=== PATIENT | female | born 1955 | race Caucasian/White ===

== ENCOUNTER 2023-05-18 14:48 | Outpatient (OUT) | payer MEDICARE, SELFPAY ==
--- NOTE | 2023-05-18 14:52 | MM_ITS ---
Patient Name: NATHALIE RICHEY MR#: [id number] : 1955 Exam Date: 05/18/2023 Ordering Doctor: DR Ivelisse Georges M.D. RADIOLOGY REPORT PROCEDURE: MM TOMOSYNTHESIS SCREENING BI COMPARISON: MG MAMM SCREEN 3D [place] CAD, 02/12/2022. MG MAMM LT DIAG FU, 11/29/2020. INDICATIONS: screening Calculator Name NCI Breast Cancer Risk Assessment Tool 5 Year Breast Cancer Risk Not Reported. Lifetime Breast Cancer Risk Not Reported. Personal Breast Cancer No Personal Ovarian Cancer No Treatments None Family Cancers None LOCATION: [facility] BREAST COMPOSITION: Scattered areas fibroglandular density. FINDINGS: DIAGNOSTIC CATEGORY 1--NEGATIVE. NO CHANGE FROM COMPARISON ASSESSMENT. Scattered benign-appearing calcifications are present. RIGHT BREAST: No significant suspicious finding. LEFT BREAST: No significant suspicious finding. RECOMMENDATIONS: ROUTINE MAMMOGRAM AND CLINICAL EVALUATION IN 12 MONTHS. PLEASE NOTE: A NORMAL MAMMOGRAM DOES NOT EXCLUDE THE POSSIBILITY OF BREAST CANCER. A CLINICALLY SUSPICIOUS PALPABLE LUMP SHOULD BE BIOPSIED. Dictated by: Anderson Gibbs MD on 05/19/2023 at 09:29 Approved by: Anderson Gibbs MD on 05/19/2023 at 09:30
== END 2023-05-18 14:49 | disposition home or self-care (01) ==
LOC: MAMMO 14:48
PROVIDERS: PCP Family Medicine; Visit Provider Family Medicine
DX: Z12.31 Encounter for screening mammogram for malignant neoplasm of breast (principal)
CPT/HCPCS: 77063; 77067

== ENCOUNTER 2024-01-27 12:27 | Emergency (ER) | payer MEDICARE, SELFPAY ==
[2024-01-27 12:33] VITALS: BP 150/93; PULSE 79; TEMP 36.7; O2SAT 97; BMI 25.7
--- OUTSIDE RECORDS SUMMARY | 2024-01-27 12:54 | XMS_ITS | CCD ---
Author Organization [facility] Care Team Providers Care News Assistant Name Role Phone DR IVELISSE GEORGES Primary Care Unavailable DESTINI, DR IVELISSE Guzman Admitting Unavailable DESTINI, DR IVELISSE Guzman Attending Unavailable DESTINI, DR IVELISSE Guzman Consulting Unavailable DESTINI, DR IVELISSE Guzman Primary Care Unavailable DESTINI, DR IVELISSE Guzman Admitting Unavailable DESTINI, DR IVELISSE Guzman Attending Unavailable [place], DR KEN Vaughn Consulting Unavailable GEORGES, DR IVELISSE Guzman Consulting Unavailable Ivelisse Georges Allergies Allergy Classification Reported Allergen(s) Allergy Type Date of Onset Reaction(s) Facility (3 sources) patient allergy list reviewed by nurse or physicia Propensity to adverse reactions 9 Comment:Done [facility] Other Medications Current Medications Medication Drug Class(es) Dates Sig (Normalized) Sig (Original) Ibuprofen (1 source) Nonsteroidal Anti-inflammatory Drug Motrin Active PARoxetine (1 source) Serotonin Reuptake Inhibitor Paxil Active sulfamethoxazole 800 mg / trimethoprim 160 mg oral tablet (1 source) Dihydrofolate Reductase Inhibitor Antibacterial, Sulfonamide Antimicrobial take 1 tablet by mouth every twelve hours Bactrim DS 800-160 MG 1 tablet Orally Twice a day for 5 days Active valACYclovir 1000 mg oral tablet (3 sources) Herpesvirus Nucleoside Analog DNA Polymerase Inhibitor, Herpes Simplex Virus Nucleoside Analog DNA Polymerase Inhibitor, Herpes Zoster Virus Nucleoside Analog DNA Polymerase Inhibitor take 1 tablet by mouth every twenty-four hours Valtrex 1 GM 1 tablet Orally Once a day for 30 days Active take 2 tablets by mouth twice da fox Valtrex 1 GM 2 tab Orally bid for 1 days Active Valtrex Active Valcyclovir-1000 mg TID 500 mg (1 source) Start: 07-22-2016 take 2 tablets by mouth three times daily Valcyclovir-1000 mg TID 500 mg 2 tabs orally three times a day for 7 days Jul, Active Problems Active Problems Problem Classification Problem Date Documented Date Episodic/Chronic Disorders of lipid metabolism (3 sources) Hyperlipidemia; Translations: [Hyperlipidemia, unspecified] Chronic Genitourinary symptoms and ill-defined conditions (4 sources) Dysuria; Translations: [Dysuria] Episodic Mood disorders (1 source) Dysthymia; Translations: [Dysthymic disorder] Onset: 06-29-2017 Chronic Other circulatory disease (3 sources) Elevated blood-pressure reading without diagnosis of hypertension; Translations: [Elevated blood-pressure reading, without diagnosis of hypertension] Episodic Other injuries and conditions due to external causes (1 source) History of fall; Translations: [History of falling] Episodic Other nutritional; endocrine; and metabolic disorders (1 source) Body mass index 25-29 - overweight; Translations: [Body mass index (BMI) 25.0-25.9, adult] Episodic Other screening for suspected conditions (not mental disorders or infectious disease) (11 sources) Encounter for screening mammogram for malignant neoplasm of breast; Translations: [Encounter for screening for malignant neoplasm of cervix] Onset: 01-14-2022 Episodic Residual codes; unclassified (2 sources) Postmenopausal state; Translations: [Asymptomatic menopausal state] Onset: 08-15-2018 Episodic Viral infection (1 source) Disease caused by 2019-nCoV; Translations: [COVID-19] Past or Other Problems Problem Classification Problem Date Documented Da te Episodic/Chronic Inflammation; infection of eye (except that caused by tuberculosis or sexually transmitteddisease) (1 source) Acute conjunctivitis; Translations: [Unspecified acute conjunctivitis, bilateral] Onset: 11-07-2018 Episodic Other bone disease and musculoskeletal deformities (1 source) Disorder of bone and articular cartilage; Translations: [Disorder of bone and cartilage, unspecified] Onset: 09-21-2018 Episodic Viral infection (1 source) Herpesviral vesicular dermatitis; 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-29-2017 Episodic Results Test Name Value Interpretation Reference Range Facility Urinalysis - DIPSTICKon 09-0 Appearance (U) clear [facility] Other Bilirubin Ql (U) Negative [facility] Other Color (U) yellow [facility] Other Glucose Ql (U) Negative [facility] Other Hemoglobin Ql (U) large [facility] [employer] Other Ketones Ql (U) Negative [facility] Other Leukocyte esterase Test strip Ql (U) moderate [facility] Other Nitrite Ql (U) Negative [facility] Other pH (U) 5.0 [pH] [facility] Other Protein Ql (U) Negative [facility] Other Specific gravity (U) [Rel density] 1.000 [facility] Other Urobilinogen (U) [Mass/Vol] normal [facility] Other Urinalysis - DIPSTICK [facility] Other MG MAMM SCREEN 3D KWAKU CADon 02-12-2022 MG MAMM SCREEN 3D KWAKU CAD Patient: NATHALIE RICHEY Exam Date: 02/12/2022 : 1955 Gender:F Ordering : DR IVELISSE GEORGES M.D. Admission #: [id number] Family : Order #: [id number] CLICK HERE TO VIEW EXAM RADIOLOGY REPORT PROCEDURE: MAMMOGRAM SCREENING 3D BILATERAL CAD COMPARISON: MG MAMM SCREEN 3D KWAKU CAD, 11/22/2020. MG MAMM LT DIAG FU, 11/29/2020. INDICATIONS: Screening for malignant neoplasm of breast Calculator Name NCI Breast Cancer Risk Assessment Tool 5 Year Breast Cancer Risk Not Reported. Lifetime Breast Cancer Risk Not Reported. Personal Breast Cancer No Personal Ovarian Cancer No Treatments None Family Cancers None LOCATION: [facility] BREAST COMPOSITION: Scattered areas fibroglandular density. FINDINGS: DIAGNOSTIC CATEGORY 1--NEGATIVE. NO CHANGE FROM COMPARISON ASSESSMENT. Scattered benign-appearing calcifications are present. Scattered benign-appearing lymph nodes are present. RIGHT BREAST: No significant suspicious finding. LEFT BREAST: No significant suspicious finding. Decrease in architectural distortion upper outer quadrant RECOMMENDATIONS: ROUTINE MAMMOGRAM AND CLINICAL EVALUATION IN 12 MONTHS. PLEASE NOTE: A NORMAL MAMMOGRAM DOES NOT EXCLUDE THE POSSIBILITY OF BREAST CANCER. A CLINICALLY SUSPICIOUS PALPABLE LUMP SHOULD BE BIOPSIED. Dictated by: Ken Gibbs MD on 02/13/2022 at 07:35 Approved by: Ken Gibbs MD on 02/13/2022 at 07:37 Normal [facility] Pap IG, rfx Aptima HPV, rfx 16/18,45on 01-18-2022 . . Normal [facility] Comment on above: Result Comment: Perf ormed at: WB Performed By: #### P APHR2A #### [facility] [address] [place] [address] Dr. Shaheed Pearce DIAGNOSIS: Comment Normal [facility] Comment on above: Result Comment: NEGA TIVE FOR INTRAEPITHELIAL LESION OR MALIGNANCY. CELLULAR CHANGES ASSOCIATED WITH ATROPHY ARE PRESENT. Performed at: WB Performed By: #### P APHR2A #### [facility] [address] [place] [address] Dr. Shaheed Pearce HPV Aptima Negative Normal Negative [facility] Comment on above: Result Comment: This nucleic acid amplification test detects fourteen high-risk HPV types (16,18,31,33,35,39,45,51,52,56,58,59,66,68) without differentiation. Performed at: =G Performed By: #### P APHR2A #### [facility] [address] [place] [address] Dr. Shaheed Pearce Methodology: Comment Normal [facility] Comment on above: Result Comment: This liquid based ThinPrep(R) pap test was screened with the use of an image guided system. Performed at: WB Performed By: #### P APHR2A #### [facility] [address] [place] [address] Dr. Shaheed Pearce Note: Comment Normal [facility] Comment on above: Result Comment: The Pap smear is a screening test designed to aid in the detection of premalignant and malignant conditions of the uterine cervix. It is not a diagnostic procedure and should not be used as the sole means of detecting cervical cancer. Both false-positive and false-negative reports do occur. . Performed at: WB Performed By: #### P APHR2A #### [facility] [address] [place] [address] Dr. Shaheed Pearce Performed by: Comment Normal [facility] Comment on above: Result Comment: Van Zaldivar, Director Speech (ASCP) Performed at: WB Performed By: #### P APHR2A #### [facility] [address] [place] [address] [id number] [address] Shaheed Pearce Specimen adequacy: Comment Normal [facility] Comment on above: Result Comment: Sati sfactory for evaluation. Endocervical component may not be distinguished in cases of atrophy. Performed at: WB Performed By: #### P APHR2A #### [facility] [address] [place], [place] [address] Dr. Shaheed Pearce Coding Summary.on 02-25-2021 Coding Summary. [id number] G h0bWw+PGhlYWQ+HM4QZJF wP41wgHEazX4SS9iSOU3Q YXKJCELSAZ8ICR7qsFA0D DhzU3LwfqKe KkdsrKXtAP20MLa4KZT2a KizGVslbC7adTDkN2d7If XuMU25sM61IPixNRGoZyI 3LjZpbjsgbWFy N9tpFzQdsOFvKbj+PHRhY mxlIHdpZHRoPScxMDAlJy WetXwvME1tAi0zADYjTKU vbGxhcHNlOiBj p0klIORvIDbbFP3qnKzeC 0WmkOE6GVYoq5c5Ub98nQ I+IJAgFXE9vEesEJuul18 7NsYdo0zkJGU9 cEMoVHvsLEB6Y90pj9F6R ERrWSBsOFV2mOC0lE8ujD ybsnwuT3PklFXzRiP1JII 6gMUvkV1jvIhe ohzeyD6lPib+Q73BZO3IQ EFRLR0RTcx9M7EuRvxtrP I+SV17OIVfHD95cPOsaSO sq5kymDw3HkGj YZUpLZR1vVqsFIoeu9WpH AFyI61rtLLrv3W3VSRynS wvvHEqOhUzkJG5zM7zLEu gsuidt0sceose Bobbt9ocxu09eB98Q59eM PsuHUMhTDF6XGEqTGYimN ferq3deN4zSu8+SNzzj5a fu2xsxOc0EaBo KREvpoOykPaxVGG9x9XoH i97W4VvtAntd6OgFys1sg 20yIVig4Y0yQU7ZPnvPDR xbX6lYIrfYzO9 HVHeCeOgvF33kQEdBVnvR a8wsXyehOqdCV3uCIVyak cdINKzkI8dGZFkxRDniEp hON2uVTSwhfii s698XeZwQEZ6GIIpgYSlM 3MkgX4fXiOpNKRoRRSiG1 RiyTOlOAcvD565XIqxAdI 7UOYlrcCiN0Vs KVXegKueAaX5t8V9Iy9Zp 0GkwavvQBM0JAelUTV6Hz W7LyUuDhI1P9OiZaz6JBU drIlsFY3uY3In NUNlwvijcrzfwGU3ZEJkW FOyzI45yJFoCXkfSw0wj7 X1z861BLTtSNApzU17Ra0 udDogMTBwdCBU pX9lrrikk8cwjfzpFgXxL EDjUHc7MSu7SDJtaKruHg KiTPF7JdA3ALL8kDWydV9 ozHnsxfbsvD3w Oyc+D63hpV5eONY7XZU4b pkzJCWrzlFsRL57ME58J2 RyPjwvdGFibGU+PGRpdiB psJaqLI4zGtSp p5gny8QfQUmsO2WxBOOtQ DjdKpw9ZKJmRRY3tQB7lJ 4uQDPiTWsrs0L0sRV6B3C uduMkzo0vi5cr MMRiNMrxR20wcLJrb2I9D VZkfOE7MPObmEfaWxZgjK 93Oyc+OULqqNneg0FwKtd bn7gzm6pkhYg2 KjBpYGRpldWupPjhHER7k 0XvEb59X04mLXzcYUPuPQ AvKOQeICAquAsehd6ddH4 wIi8+PGNvbCB3 hYC0pA2dHHThUjA9NZcxQ 167FmUdqAXxRzfcp3suq2 fmhPf8JuCuZNFlctLdvNy aGSR5k1RxLv15 P67wXNkhDHZtCAIfWPUmR GAiiMnazk9paI5jXc6+PC 0aw0kytr65gN01xTI+PHR lHQT1uXygTKdp YNXtjS6bUMfoHtO6PQVeB pRxuU25vWMfGKpaBd0cpA xtbQsnCQ3sRPActocgf60 5IlIsh4ubPDDb aTEbDTdhXGW7V79gl7G1R GHcHPQbWXH5rVH8nP0ufY lnbjogbGVmdDsgdmVydGl wZItzYXbyE640 IHRvcDsnPlBhdGllbnQgT aSaNFq2P1TxZyw7DOAgoT tcSM5otESzJHldXg8hmKq liPqtLH3oKEGt iezvh751DtLro8qrHIJfq HLuRKxnDBK8T78mw8Z9JR GbVZZdSXU8gTT0lZ1mrCn nbjogbGVmdDsg vyEotXfvWNleLZrrU968U HRvcDsnPkJpcnRoIERhdG G0IE64VU86uJQqs8K5sWS 7J3ZlXOMbwmhz qwircJR7UMDmNJAwoZ80H l9otIrsVq9hDVIuSQZ4AH UznEBsO6XahE2wWgElLWP uFVJsJ7MetTQp YJdpL653SJfyByX5CQZcl qZxB5JqMYNfoFftDeZ0j7 B1Mw6KJ0D7ST75MZ25fBD ud5Z1lEB3C6Cg QTJdbycdlsaknWV6NKVqE BRjpA60Ay3brMtoKj5xJF NyJPZ5ZYAovACpY2VmnS9 yOiAjMDAwMDAw R0EbsVJbSDryG918COkaF rF5ZZCutvLhX0ZvRKEahY dcFvR8o2M2Py9NOYj8QI6 3CO69mXUih2Y9 qWA9D5RjKBBvpubpgtags ZH0DZHaCOHmqZ20Wf1lsE icQq0gJLTnMRO3UFStgFP aE4YmvE1bIjKz LSNbUNYzE4ZxxEGiSAlxV 234UWmdUeT0KPRrjyUfV4 DzPEQvfNgqHjG9v6T7Cq8 AAEUmCA63DSI4 sXL6ZK62UP99E2JdJafbr GFibGU+PHRhYmxlIHdpZH RoPScxMDAlJyBzdHlsZT0 dIr1lDDQbAFZm tJnyeORoCjNgr6qtUAKmB QmrDL9fnTiqH8IprYI2SX Uog3a5Zx70I14aO2PddHW +VUAsnXL3pKH5 pG5oCiEoYoP4WZuuS959Q fZkcAPnDrcfo3kjd0rlyO e2VxO7PDSpekOrnMqnOVP 3i4YiAc34S41z IHdpZHRoPSIxNSUiIHZhb Ntzla7juV3pBx6+PGNvbC I0gPW6dP1gHpLmYqF7CGq mN071ErGekCSb Kyrbq5qql8yliWb2CjMzB KVxuwWrkDwzJUC8f4BaPj 96Z8HpsMbty4CjRdg4zy9 7hFKtk2D9zHJ1 I8VrXMWfqcsbbKKnxSkuJ K6aTYWjqmzkOQPfeJ1zRA TmY9q6AbRpAiQ2TVhdN3R hybD8RSTqnPYh ZQyqXAP7C38tr2Q6CFLpT JWiCKY3oYE8bK5lcGqvkn ogbGVmdDsgdmVydGljYWw pYOvjS546OPZr yTquNQOzfC3bAUUthZJhz FxrBT6hADCazrtkQg4IE5 yUHQjNASWRCQ6QBAajpJW +JAZuBGD0kQmy NEmkPPWdeO1kGYFwQ9b5C gLdMvF2EHjbL0BjAFKyvy edQo59yO6kAlJuHqT3HZj pG3DxvuG2MLLa zZPbNUkqTUZ6J10uw1N2A XKsCYLdPPQ2hZQ5iX2ppR lnbjogbGVmdDsgdmVydGl tQQghSHqiW671 TNWgoPtyGbT4OlJaKyW2H BY7D1TgGga5TTZrqQrwRD 8rzGZrMStzYb4qlGtgcPf oBF5yBPGgbmmf JMSnyA2nSGJvpRHrdLfqW G9uKWQbvpxtp119OzBtPQ W7XGCetQKrM2EzyF1wFaR rEMJzRIZcY3Ex eLLxOFmxU589UOrjEhE4R FXfxsNbC8ShEDClfQgsEb B4i3B4Ii73QtSPZYAzvhi vdGQ+PHRkIHN0 yJhfCJdePZQjyR8aFXMxC 5x6EvXnZpR6GXrjY9KhYD HwudbuDx05xJ1dOuQcEhZ 9CXcfW3TejiX8 ESMidSYeKWevTFJ0X86ou 5J8DFRmFWShNAC9tTT1rH 1hbGlnbjogbGVmdDsgdmV ydGljYWwtYWxp C979SIHmmWugJmXqcGOcF TwvdGQ+INIfRMX1wYfwJC xqQKLnrA0iNXRqG7x4WuF uMeW4VNaiO5Md XQKciytcWv61aO7sShOnY wY3AWssD3SisjJ3YQZkrZ TaGRflBRL9N25zi6C5WQZ aTDUsIRB0qDR4 yC9znOwhtpqleQAccBkhr cQebIzxSMgwTCoeR968TM UdwKjwXt25bHGadHyvlqS 9S3YcVdtsvIO+ NX61SEVbVD75zRZgoQVav 2cnyGu2MoSvXTDgGSW0uS qhIRnyc3TdPNIaJ82zoMD jw5I6VGJmgZzl eKSxTuHozTC1cG9bAGddt coio8oyjoftGnhlc5ajza 84eB72S12sBKjmGJStZWP zMCUiIHZhbGln tu3eaN3uKb3+ZXAptCN7f PM2fP0oPoBmIcJ7LEnkM7 47WbVzcPNwUlzki8edc1y avUs7YhOlRVEj qaGeqUslDHL9x6XmMd85N 29sIHdpZHRoPSIyMCUiIH QuzXxknd1xsR2oOg7+PC9 yx3ynto28vQ66 dHI+CUVcBDC8kXmqXJkpY BFpfA9lYLdsIjQ2NEQmJp HeaD07zVWcANbsPr5shLx dtXfzIA9dYPYg zpodk178CbEhy3zkRPCwz XAuATkjDOZ3Q16yp3W4YU UbJADuNYR2nUB4xK7tiNg nbjogbGVmdDsg kiUfcMhjIAhnGSsnD824U XTrlUeqTkKkvZOtT3werp MTIP4wDryriRP+PHRkIHN 0eWxlPSdwYWRk yE9sWFScY6u4HyFqEeO2T MvkQ9MaxyJ2HUJujURbLX VunQLHfT1dhctdo9siurf gIzAwMDAwMDt0 MOf7VPOacYlgAmYlPWR2B tE1CSE2pNSrdK2syPcipd fusV2kGwa+RklOOjwvdGQ +YJJmWAR9uDga WXpvAGOkuO0vLJQwX3q4J iSxJjA9XYvpI8YsunG6DB SajMFiGKKllJABdS7kuei ku6cpzmopAqEs RLGgEBm4KZr7KWSuoAxuK wWtQMV5MsU8XCX3pZUsuJ 6qfCxvltyqxA6zRla+TVJ OOjwvdGQ+PHRk GZJ0qYjrFNxcWJDzpK8uA EUqK4y5FtAaFwG7UXwnV5 MttlM2IMBboBZiMFInbZC UbR3qbhfin2lc ntghBlYiXEKkAKe7VVu1U FWhhJaeJoJqGXH6TdW5SX D8qCAtzR0krXmryqiogZ7 wOyc+RSV4WPE0 LB93LT50T0WlVxukbLKrf +PHRhYmxlIHdpZHRoPS pwYZWnRcTomRsxTJ9iNj9 yZGVyLWNvbGxh cHNl (more content not included)... [facility] Coding Summary. [id number] G h0bWw+PGhlYWQ+XL7VCTA lU02mxUTntS2QI6rFUQ2W IOEFIVAPPQ9IJM2yuJG5B CtiQ0AxtzLf RfxvdQZwMH86UJg3PDW9c NwjFWpokW5ddLJvC7s3Ri OmLR65zO98AQpiEMHpNgZ 3LjZpbjsgbWFy Z8ddLaVybYNrOyx+PHRhY mxlIHdpZHRoPScxMDAlJy RhgXjpSP7aFe9vHLLkGQU vbGxhcHNlOiBj q3whEEYjPPqzKJ7nzXmgO 0CchFO9ACDup2y0Uy76bC I+SDOcZPA9wYvqIIkwn61 8ToGnj8ifKFL0 fKOqHXbmZXN6A94nm4J5I ILjXSCsUAA2hSN4nA7zkG vrhobdL0HlhPXkLrP1UIA 5vWOgoB1kwEmm yoinnD0mVue+F78IOU2IF TKSFA5YPbl2L7OzHoyupN I+SE14NGXjTS03wXBqzAP ui0givTy7QbBm PWWxIQI6kMyvEMkze6YtZ HFfQ91mnOCzu2S3LZMmbV xvvDKdPrJzaGR7oX7tJIx eoeumc6aqqivq Puwtu5rntv73cC80G41pN LzvUTXnOSW9RLIaNUOgrU cmbs2dhF5hXb5+GEuon0g sq1lujPv3FpKp YSKflgMyoKljCQZ6b1TnC y66Y9QdqGoew8JpJzy2jb 27vWVan7U3eYI1JLchNWJ nmY1sEJblFlE1 QAOjFyKxxH27bTDqAJtwA l0kfWiaeKlxSI9pDLZlel roABNitM7gJCKryEMdcEe hKN2jYRVdklns o296RpUgCXS7TRNkjYYtM 5WlbE3iJuSeKEAeTDVpL8 YojNAxVEaqP112LFipVlF 5OZTpioCrT6Rp WYUokJrxDkJ0d5Y0Fj4Rp 2ChoybuRBC5BCidHAN9Yl P3PcNdVmU7Z9TlQcd9HHU cfZrwNB5hO4Ej EAVtzomulyphdXO3FZLkM PSmfX00cJTnFVlyFv0xp6 A2i421SIQvVEOcbR16Oh4 udDogMTBwdCBU wG2erwqyr5ftzdhaYgZnO AXtBLo1IAp7WSKbhVcgVq ZaPSH9BgG2QLX2hVKdcX1 uwHubqquhbF6p Oyc+U67nmN2jBZV4JPS8w objRJWeriWgOG92YW19V2 RyPjwvdGFibGU+PGRpdiB ucPagBW7rNbPq b1qth1XnQZoxV1EeSFLvT HaqWod1QTQnZEO9cIR6lL 1wIYAkRTbbz8Y7mBL5N8N pvmNbtt2kv3nh KYDpDWhiQ92cyXFyq5R1Z OXwvYT6FJQnfDsmTpGcuB 93Oyc+HCVilHpyg5KeXld cb2krz9svrDp4 PuAdZSPnvnXhbTpnPQL4j 1BaOo25X64eHGtcOJYqLQ BfBHCrZGHzaRnwyy1gtY8 wIi8+PGNvbCB3 qQY6fR6oWBLiPbO8DCoyR 820MgSiwRJzNwaqh8vpo0 ignNs5SqVoLYFdzcRozFc tZKU1e6HaOz28 S72tQCyrDOUxSHKuPGFgC UOnfLfrpr7scH2eDh9+PC 8qd4aofh97qC68kRR+PHR zXRP0oYtvXVqm ZDXhdW6eYHbgJjA2NVWbK rRaoM88oBOvNLvjOc6tpI vnjUldUR7jPWMowzlmb82 9ArIlu4otLDZu zVKyGYmsDHK4G64us6U3S VPjCRXjDBQ7dXJ7mW7yaN lnbjogbGVmdDsgdmVydGl cEKkzUJbaP451 IHRvcDsnPlBhdGllbnQgT tAuZLz7E4LaNja9QQHabM rqDT3agOFiXEziDa6gxKw noSmoAN9tZYQj kjwrg214NbWkk8bnENDys EXeGFexERY9X70tq5L4PL BlNHXaRAL3sIE3kV7ohAi nbjogbGVmdDsg owUktVmfXJjeGYvrJ232J HRvcDsnPkJpcnRoIERhdG W4LL85LT30fNYlh5O9gJT 3Y1CdOUZndcay gpvnzDU2IGAkYAAoaP92L y7usEufOd9zJDNkSGX0PL WzvNAqE4LjwG5cJlGzNXM kOJJbA9JngVPs UXshC655ZWgrTkU3NVSus tMzL9KpDMUqtMotVgV9d1 D0Fe4TJ2H0LV52DT57uIF em2U1qFH8E4Nq WKVtnpavtxfpkVZ6ZVSpD LBnrZ14In9tfNrvZn4hWK LnQNG8RHBnySShW7UraO8 yOiAjMDAwMDAw W1NjzAAaQErxB031WZwgE xH2YPZxczZyJ5LbUXMjyD uoFtJ9o0S1Ai6SFDw3RK9 2HQ84sFLnu3H8 gTX0O2KgAAIrxxqmvyzec AJ1VLZgHARsoJ80Cw4qeZ vpCq1gQVHmAWD3ZXLsaER kH9GaxF5fPoPf ISAgZKPuG1NyvDZxSRguV 410GSmsLvD7DFPawtEyK7 GqLKTqrOcmFdJ1x3W4Cb6 JEXSpKJ08CXE5 tJY6RR78WZ06T7IaHnsdu GFibGU+PHRhYmxlIHdpZH RoPScxMDAlJyBzdHlsZT0 wPn7bWGVtPHOf dZpcnWYkQgKvu4deHWGbX VhsOT3yzFumF5PfzEU3VL Nko4u8Jj56G36eD5BvuHK +OPEumVQ9uSR3 aE1uZlUnJxS6XRasL158A pOjpRExZozic3onx9nubE g0YlQ3SILrwjSihIwoPXR 5c2BgPe15R77t IHdpZHRoPSIxNSUiIHZhb Rloae6krE7zHb5+PGNvbC V0eRO2fD8oOyUlBuK2DZy aW875BnWkgDKx Hedap7rih3ubxJd9IiNgI AMuehDmnLweFCN7s8OvGf 41M9VvvAnhb7DwKaa5hm3 7jTQvz4T0yAH5 M1WhIJReyelynLDcdQmjX M1hWAPhlxczVRIbaT9lJB CcS4p3GdLsWrX7FIgkQ6R hqvX4CGRovDPd NPesVAE1Y87fg8T7ILVyS ESjZOY8wBG0cB3bqZhead ogbGVmdDsgdmVydGljYWw mZDbaS632VICb nUydHHFbcU2lMQSmiVEvd NzkBI1nVKNfkxgkBs6WQ8 pNFRaSIQBSSR0ZOJzpnBO +DKAuMBO4eKgx IIqqLRPbiA7tASTzA7s8F uEfWhY3YPfgP0PsLVJawz lxFw65sD8oNyEmTbS9AGs eE8CztrK5TDQv qQWwYQpoPCA2V15xp8Z9F FTqGGJfBHR2dQI7vO8nvY lnbjogbGVmdDsgdmVydGl cCExrDNmtQ341 HPXzgMtqWpF3NlYxLfP1X KS7Q2RnZzr1KEFjhMbtTT 9wzPZzYHhuMz1elPhifVl iIB7pJTIxapkn FQJxiY4gFGQnuTCcoVzoF T9gNBXenpips218XhMmOE Z6WKBzbRCkF3HkcP3qRuH mNIOqNAOjI0Ig tAFyBGkyP484MXowSvP4A QJziwKvS1QnEZGmuUpoUz X7a6P7Lc58AQPZAAMnnbo vdGQ+PHRkIHN0 eZicDXjwNTJvpJ9rCLUwC 6o4KkMhJlG9PVfeA4PlCG PjqwboDc89mF4fJlEzFpH 8YKgcC0CzjaU6 BJTuuADjMAtvXXV8M05be 3M1HANxSIBzAQX7nGY9bV 1hbGlnbjogbGVmdDsgdmV ydGljYWwtYWxp N657WZRixUuuEqKolWGyG TwvdGQ+HRUlIVG5oXehLG whRYIdsP9yPJAlS8l5TaO vMnR5FLblC6Ma SSWoehfgAe71xD8dIpXxP vG9VNpeA2SnqqK5FIWnlG LtRRfiBGX9S77wu2L5BJV rNVMhNHG8cNH9 yZ1seFpmjijlxARaxOnxe lNyoJgePFqrUGraY424DA NfjNymYz69gLCutHkrndS 7G4GzAjnbjHQ+ PE37VGWfBG90cSRfrNWdo 6ypsCb4CrLfDEXiBEG5yK jgUVuod2SkVAZiA98xfEB mg1M3VCUpfVas wBPzWiQtyNI4eC6pQZric nyio2ipgyqfFovzv4ipru 62dD96J41bNCbnASBzABO zMCUiIHZhbGln cd1kbP7eRt1+WWSzsJI1p KN5cY6lYsZpQnR5XGnkI9 61EyFgwRPkPhbsl8ppg5h cfEs7RcHaRVNk bpIrnCgiYKR9r9XcZq04Q 29sIHdpZHRoPSIyMCUiIH MvlXodkw1ujU0wOl9+PC9 kj7pmdi34oI52 dHI+KGVfCXQ4cEcxLIxoS AJakS7rWTukTfY8NDJhFy KvmY35vQSgWQxkZm5aoWb ntEniFB4qOFRa hhlob932YkHjv8yzCLIox QBaDYulXVQ2D25dj9O7QB MmWSRlQVS0iUH9vP6kgBd nbjogbGVmdDsg goHviJdvBKiyRGuqL760O QYjjYfeEfSkwMNeO3nfvw KQYX9nUgtzmFE+PHRkIHN 0eWxlPSdwYWRk cP8oGEOjX4p4BoRxQfZ9O NzqQ6IjrkS6RLNbfMUeMV GslFALpY6enoakm7lrqsg gIzAwMDAwMDt0 YGq3NBQwxJmkMpHaZYV4U eC7SBF3cQNbyI9gpJnfbi fojC6tIgl+RklOOjwvdGQ +LNLmNVS9zSlb DXasXLVetC9uHQDdA9i3V nWyAyE3GDtgE0SembA7DD CqpOYhKTIztKYNtS3vhrk gq5uaxoktQkBn AONyZXr2KMg9BLNioWusH jGdNNV6OaW7XLE4zCYtwQ 6emYxpwmyufP2zVwy+TVJ OOjwvdGQ+PHRk USA5rKvaWOddVXRukP4aJ FPfR2w7GaJcCoU3HMsoF3 FravM7YBNpdFOhTKEaiQX DhF6gpxnru6jo nobkZmZkFNBuVSp0RWx5J GSrgWweChHjKQU5QbZ1DJ J8nSNuhP1zkSssvbxgqA0 wOyc+PKY2EOC9 IM23JW08D0IeNgillVWmx +PHRhYmxlIHdpZHRoPS muYPJcLhGwiDloVD5gSu8 yZGVyLWNvbGxh cHNl (more content not included)... Normal [facility] Physician Orderon 02-21-2021 Physician Order [id number] Normal [facility] Auto Diffon 11-25-2020 Basophils/100 WBC (Bld) 0.8 % Normal 0.0-2.0 [facility] Comment on above: Order Comment: Order Added by Discern Expert. Performed By: #### 2 [id number], [id number], [id number], [id number], [id number] #### [facility] [address] [place] [address] Basophils/Leukocy karla Auto (Bld) [Pure # fraction] 0.1 E9/L Normal 0.0-0.2 [facility] Comment on above: Order Comment: Order Added by Discern Expert. Performed By: #### 2 733839, [id number], 5637074, [id number], [id number] #### [facility] [address] [place] [address] Eosinophils/100 WBC (Bld) 1.3 % Normal 0.0-8.0 [facility] Comment on above: Order Comment: Order Added by Discern Expert. Performed By: #### 2 963485, [id number], 2758763, 2871529, [id number] #### [facility] [address] [place] [address] Eosinophils/Leuko cytes Auto (Bld) [Pure # fraction] 0.1 E9/L Normal 0.0-0.5 [facility] Comment on above: Order Comment: Order Added by Discern Expert. Performed By: #### 2 402986, [id number], 7207881, 0802712, 0557385 #### [facility] [address] [place] [address] Lymphocytes/100 WBC (Bld) 42.5 % Normal 14.0-50.0 [facility] Comment on above: Order Comment: Order Added by Discern Expert. Performed By: #### 2 940608, [id number], 8073568, 1807289, 1586582 #### [facility] [address] [place] [address] Lymphocytes/Leuko cytes Auto (Bld) [Pure # fraction] 2.8 E9/L Normal 1.0-4.0 [facility] Comment on above: Order Comment: Order Added by Discern Expert. Performed By: #### 2 231050, [id number], 3809373, 6622610, 8746540 #### [facility] [address] [place] [address] Monocytes/100 WBC (Bld) 5.9 % Normal 4.0-14.0 [facility] Comment on above: Order Comment: Order Added by Discern Expert. Performed By: #### 2 275228, [id number], 7537093, 7884571, [id number] #### [facility] [address] [place] [address] Monocytes/Leukocy karla Auto (Bld) [Pure # fraction] 0.4 E9/L Normal 0.2-1.0 [facility] Comment on above: Order Comment: Order Added by Discern Expert. Performed By: #### 2 503727, [id number], 8905717, 8285744, 0851038 #### [facility] [address] [place] [address] Neutrophils/100 WBC (Bld) 49.5 % Normal 36.0-75.0 [facility] Comment on above: Order Comment: Order Added by Discern Expert. Performed By: #### 2 871131, 84620423, 1847487, 3494071, 2809153 #### [facility] [address] [place] [address] Neutrophils/Leuko cytes Auto (Bld) [Pure # fraction] 3.2 E9/L Normal 2.0-7.5 [facility] Comment on above: Order Comment: Order Added by Discern Expert. Performed By: #### 2 663924, 18495614, 2932964, 8558730, 6037619 #### [facility] [address] [place] [address] CBC w/ Auto Diffon Erythrocyte distribution width (RBC) [Ratio] 14.1 % Normal 10.9-14.2 [facility] Comment on above: Performed By: #### 2 874234, 31816254, 7181062, 3213697, 9440928 #### [facility] [address] [place] [address] Hematocrit (Bld) [Volume fraction] 37.0 % Normal 34.0-46.0 [facility] Comment on above: Performed By: #### 2 673747, 88715697, 9610231, 7360247, 4895469 #### [facility] [address] [place] [address] Hemoglobin (Bld) [Mass/Vol] 12.1 g/dL Normal 12.0-16.0 [facility] Comment on above: Performed By: #### 2 498298, 43904792, 3209422, 9677428, 9571061 #### [facility] [address] [place] [address] 88665 MCH (RBC) [Entitic mass] 27.8 pg Normal 27.0-34.0 [facility] Comment on above: Performed By: #### 2 259972, 33090748, 7739775, 0591408, 6897031 #### [facility] [address] [place] [address] 37625 MCHC (RBC) [Mass/Vol] 32.7 g/dL Normal 31.4-36.0 [facility] Comment on above: Performed By: #### 2 028803, 73266914, 3044484, 7308838, 5207489 #### [facility] [address] [place] [address] 28190 MCV (RBC) [Entitic vol] 84.8 fL Normal 80.0-100.0 [facility] Comment on above: Performed By: #### 2 333404, 67206342, 8812122, 6168591, 5609228 #### [facility] [address] [place] [address] Platelet mean volume (Bld) [Entitic vol] 8.2 fL Normal 6.4-10.8 [facility] Comment on above: Performed By: #### 2 897060, 98095918, 7758335, 3527682, 2078533 #### [facility] [address] [place] [address] Platelets (Bld) [#/Vol] 307.0 E9/L Normal 150.0-500.0 [facility] Comment on above: Performed By: #### 2 046508, 48040764, 8955555, 0954954, 4196905 #### [facility] [facility] [address] [id number] RBC (Bld) [#/Vol] 4.4 E12/L Normal 4.3-5.9 [facility] Comment on above: Performed By: #### 2 024993, [id number], 2021114, 5091612, 1828968 #### [facility] [address] [id number] WBC corrected for nucl RBC Auto (Bld) [#/Vol] 6.5 E9/L Normal 4.0-11.0 [facility] Comment on above: Performed By: #### 2 799511, [id number], 1111447, 9323533, 4125189 #### [facility] [address] [place], [place] [id number] CMPon 11-25-2020 Albumin [Mass/Vol] 4.4 g/dL Normal 3.3-5.0 [facility] Comment on above: Performed By: #### 2 224751, [id number], 7557161, 5382174, 9468531 #### [facility] [address] [place], [place] [id number] Albumin/Globulin (S) [Mass conc ratio] 1.5 Normal 1.1-2.2 [facility] Comment on above: Performed By: #### 2 543124, 78472362, 6246353, 7387428, 3817108 #### [facility] [address] [place], [place] [id number] ALP [Catalytic activity/Vol] 77 Int._Unit/L Normal 21-98 [facility] Comment on above: Performed By: #### 2 104017, 92584700, 3214856, 8478003, 1335038 #### [facility] [address] [place], [place] [address] ALT No additional P-5'-P [Catalytic activity/Vol] 23 Int._Unit/L Normal 6-46 [facility] Comment on above: Performed By: #### 2 300597, 18637302, 8242044, 1303559, 9729908 #### [facility] [address] [place] [address] Anion gap [Moles/Vol] 13 mmol/L Normal 6-16 [facility] Comment on above: Performed By: #### 2 289772, 64873214, 0889657, 6978287, 1965224 #### [facility] [address] [place] [address] AST [Catalytic activity/Vol] 26 Int._Unit/L Normal 5-43 [facility] Comment on above: Performed By: #### 2 465141, 31316699, 6904757, 6141314, 9284849 #### [facility] [address] [place] [address] Bilirubin [Mass/Vol] 0.4 mg/dL Normal 0.0-1.1 [facility] Comment on above: Performed By: #### 2 917380, 70142497, 0340114, 5314225, 6668334 #### [facility] [address] [place] [address] Calcium [Mass/Vol] 9.2 mg/dL Normal 8.9-11.1 [facility] Comment on above: Performed By: #### 2 513830, 14207364, 8611086, 9451252, 8260956 #### [facility] [address] [place] [address] Chloride [Moles/Vol] 103 mmol/L Normal 101-111 [facility] Comment on above: Performed By: #### 2 969280, 84187251, 4409167, 7017747, 6474434 #### [facility] [address] [place] [address] CO2 [Moles/Vol] 24 mmol/L Normal 21-31 [facility] Comment on above: Performed By: #### 2 184713, 45955682, 6536927, 8288437, 9457678 #### [facility] [address] [place] [address] Creatinine [Mass/Vol] 0.9 mg/dL Normal 0.5-1.3 [facility] Comment on above: Performed By: #### 2 550417, 80063613, 3442714, 4284642, 1898606 #### [facility] [address] [place] [address] Globulin (S) [Mass/Vol] 3.0 g/dL Normal 1.4-4.0 [facility] Comment on above: Performed By: #### 2 743865, 23155699, 0730795, 0367685, 5514068 #### [facility] [address] [place] [address] Glucose [Mass/Vol] 101 mg/dL Normal 55-199 [facility] Comment on above: Result Comment: If t his glucose result represents a fasting glucose, interpretation should refer to the following reference range: 55-99 mg/dL Performed By: #### 2 228518, 74311806, 7456028, 7986352, 4736970 #### [facility] [address] [place] [address] Potassium [Moles/Vol] 3.8 mmol/L Normal 3.5-5.3 [facility] Comment on above: Performed By: #### 2 156777, 51910816, 8159973, 8609294, 0762830 #### [facility] [address] [place] [address] Protein [Mass/Vol] 7.4 g/dL Normal 6.0-7.8 [facility] Comment on above: Performed By: #### 2 613323, 80085043, 4992918, 4337412, 6538542 #### [facility] [address] [place] [address] Sodium [Moles/Vol] 136 mmol/L Normal 135-145 [facility] Comment on above: Performed By: #### 2 441925, 10199545, 8754964, 0893532, 2136963 #### [facility] [address] [place] [address] Urea nitrogen [Mass/Vol] 18 mg/dL Normal 5-21 [facility] Comment on above: Performed By: #### 2 012719, 03912305, 4854730, 2451219, 2982155 #### [facility] [address] [place] [address] Urea nitrogen/Creatini ne [Mass ratio] 20 No Units Normal 10-20 [facility] Comment on above: Performed By: #### 2 355203, 60840261, 4921748, 9475176, 4802720 #### [facility] [address] [place] [address] Consent for Treatmenton 10-30 Consent for Treatment [id number]#1 .00CD:127 Normal [facility] Lipid Panelon 11-25-2020 Cholesterol [Mass/Vol] 282 mg/dL High 120-200 [facility] Comment on above: Performed By: #### 2 392136, 02728931, 2023281, 7477534, 6832262 #### [facility] [address] [place] [address] Cholesterol in HDL [Mass/Vol] 111 mg/dL Invalid Interpretation Code [facility] Comment on above: Result Comment: HDL > or equal to 60 mg/dL: Low cardiovascular risk HDL < 40 mg/dL : High cardiovascular risk Performed By: #### 2 563160, 62122963, 8797725, 5283820, 9799286 #### [facility] [address] [place] [address] Cholesterol in LDL [Mass/Vol] 120 mg/dL Normal <=129 [facility] Comment on above: Performed By: #### 2 092501, 70388791, 5674700, 1681590, 9358831 #### [facility] [address] [place] [address] Cholesterol in VLDL [Mass/Vol] 21 mg/dL Normal 7-40 [facility] Comment on above: Performed By: #### 2 986734, 78280362, 1897395, 3454831, 0663252 #### [facility] [address] [place] [address] Triglyceride [Mass/Vol] 107 mg/dL Normal <=149 [facility] Comment on above: Performed By: #### 2 010540, 59290083, 8593229, 0576350, 0651116 #### [facility] [address] [place] [address] Physician Orderon 11-25-2020 Physician Order [id number] 1.00CD:127 Normal [facility] eGFRon 11-25-2020 GFR/1.73 sq M.predicted among blacks MDRD (S/P/Bld) [Vol rate/Area] mL/min/{1.73_m2} Normal >=59 [facility] Comment on above: Order Comment: Order added by Discern Expert. Result Comment: eGFR is race adjusted. AA=. Performed By: #### 2 723516, 54098292, 2089866, 4112150, 3616468 #### [facility] [address] [place] [address] GFR/1.73 sq M.predicted among non-blacks MDRD (S/P/Bld) [Vol rate/Area] mL/min/{1.73_m2} Normal >=59 [facility] Comment on above: Order Comment: Order added by Discern Expert. Result Comment: Crew Scheduler cathryn kidney disease could be indicated at eGFR's of less than 60 mL/min/1.73m2. Kidney failure is indicated at less than 15 mL/min/1.73m2. Performed By: #### 2 011356, 60374821, 5794193, 0195489, 7316632 #### [facility] [address] [place] [address] Encounters Encounter Date Encounter Type Care Provider Facility Start: 07-05-2023 End: 07-05-2023 ambulatory Ivelisse Georges Other [facility] Other Start: 07-05-2023 Telephone encounter Ivelisse Georges [facility] Start: 05-11-2023 End: 05-11-2023 ambulatory Ivelisse Georges Other [facility] Other Start: 05-11-2023 Telephone encounter Ivelisse Georges [facility] Start: 01-29-2023 End: 01-29-2023 ambulatory Ivelisse Georges Other [facility] Other Start: 01-29-2023 Nursing evaluation o f patient and report Ivelisse Georges [facility] Start: 02-12-2022 End: 02-13-[address] IVELISSE GEORGES Facility:[facility] Start: 01-14-2022 Adult health examination Ivelisse Georges Other [facility] Other Start: 01-14-2022 End: 01-14-[address] IVELISSE GEORGES Facility:[facility] Procedures Date Procedure Procedure Detail Performing Clinician Start: 09-21-2018 Screening for osteoporosis Ivelisse Georges Other Start: 08-15-2018 Screening for malign ant neoplasm of colon Ivelisse Georges Other Start: 06-29-2017 General examination of patient Ivelisse Georges Other Start: 06-29-2017 Screening mammography Ketan Georges Other Screening for malign ant neoplasm of breast Ivelisse Destini Other Immunizations Immunization Date Immunization Notes Care Provider Fa cili 04-21-2023 influenza, high dose seasonal, preservative-free Ivelisse Georges Other [facility] Other 06-11-2020 zoster vaccine, live Ivelisse Georges Other [facility] Other 02-16-2020 zoster vaccine, live Ivelisse Georges Other [facility] Other 08-03-2019 influenza virus vaccine, split virus (incl. purified surface antigen) Ivelisse Destini Other [facility] Other Payers Date Payer Category Payer Medicare [id number] 1960 Medicare [id number] 1955 Unknown [id number] [id number] 1955 Unknown [id number] [id number] [id number] Social History Date Type Detail Facility Sex Assigned At [facility] Other Evaluation note 01-29-2023 Note Date & Type Note Facility 01-29-2023 Evaluation note Encounter Date Diagnosis Assessment Notes Jan, Dysuria (ICD-10 - R30.0) [facility] Other Evaluation note Note Date & Type Note Facility Evaluation note No Information [facility] Other History general Narrative - Reported Note Date & Type Note Facility History general Narrative - Reported Type Medical History Problem Title : comp liance with medical treatment, Problem Description : compliance with medical treatment, Problem Comment : Done, Problem Status : Active,, Medical History Problem Title : Depr ession Screening, Problem Description : Depression Screening, Problem Comment : Negative, Problem Status : Active,, Medical History Problem Title : no k nown problems, Problem Description : no known problems, Problem Comment : F, Problem Status : Active,, Medical History Problem Title : past medical history E&M, Problem Description : past medical history E&M, Problem Comment : Depression Zostavax 2006 Cold sores Prevnar 06/26/15 Shingles 07/2016, Problem Status : Active,, Medical History Problem Title : past medical history reviewed, Problem Description : past medical history reviewed, Problem Comment : reviewed - no changes required, Problem Status : Active,, Medical History Problem Title : PHQ2 Questionairre Score, Problem Description : PHQ2 Questionairre Score, Problem Comment : 0, Problem Status : Active,, Medical History Problem Title : PHQ9 Question One score, Problem Description : PHQ9 Question One score, Problem Comment : 0, Problem Status : Active,, Medical History Problem Title : PHQ9 Question Two score, Problem Description : PHQ9 Question Two score, Problem Comment : 0, Problem Status : Active,, Surgical History Problem Title : past surgical history reviewed, Problem Description : past surgical history reviewed, Problem Comment : reviewed - no changes required, Problem Status : Active, Surgical History Problem Title : surg ical procedures, hx of, Problem Description : surgical procedures, hx of, Problem Comment : x 3 Appendectomy Colonoscopy 2005 - normal L cataract 08/2018, Problem Status : Active, Surgical History Problem Title : surg ical procedures, hx of, Problem Description : surgical procedures, hx of, Problem Comment : x 3 Appendectomy Colonoscopy 2005 - normal, Problem Status : Active, Hospitalization History See Above [facility] Other History general Narrative - Reported Note Date & Type Note Facility History general Narrative - Reported Type Medical History Hyperlipemia Medical History Transient elevated blood pressur e Medical History Abnormal mammogram of left breas t Surgical History bunionectomy Surgical History C section Hospitalization History See Above [facility] Other Summary Purpose Family History No Family History Records FoundNo Family History Records Found Advance Directives No Advanced Directives Records FoundNo Advanced Directives Records Found Additional Source Comments INFORMATION SOURCE (unrecogn ized section and content) DATE CREATED AUTHOR 03/12/2021 [facility] DATE CREATED AUTHOR AUTHOR'S ORGANIZ ATION 02/27/2022 [facility] REASON FOR VISIT (unrecogniz ed section and content) UA-Burning, Frequency, PainR efillRefill FOR RECORDS PERTAINING TO PATIENTS WHO ARE OR HAVE BEEN ENROLLED IN A CHEMICAL DEPENDENCY/SUBSTANCEABUSE PROGRAM, SOME INFORMATION MAY BE OMITTED. This clinical summary was aggregated from multiple sources. Caution should be exercised in using it in the provision of clinical care. This summary normalizes information from multiple sources, and as a consequence, information in this document may materially change the coding, format and clinical context of patient data. In addition, data may be omitted in some cases. CLINICAL DECISIONS SHOULD BE BASED ON THE PRIMARY CLINICAL RECORDS. [facility] provides no warranty or guarantee of the accuracy or completeness of information in this document.
--- NOTE | 2024-01-27 13:09 | ED_ITS ---
HPI HPI - General Adult General Chief complaint: Skin/Abscess/Foreign Body Stated complaint: DOG BITE Time Seen by Provider: 01/27/24 12:53 Source: patient and family Mode of arrival: walk-in Limitations: no limitations History of Present Illness HPI narrative: Patient is coming to the ER after she had a dog bite to the left side of the face almost within the last hour, this was a friend dog and the dog just bit her in the face there was no other injury. The patient is not up-to-date with her tetanus booster last tetanus booster was more than 5 years ago No other injury Related Data Previous Rx's ?Medication ?Instructions ?Recorded amoxicillin 875 mg-potassium 1 tab PO Q12H #14 tabs 01/27/24 clavulanate 125 mg tablet bacitracin 500 unit/gram topical 1 applic topical DAILY #14 grams 01/27/24 ointment Allergies Allergy/AdvReac Type Severity Reaction Status Date / Time No Known Drug Allergies Allergy Verified 01/27/24 12:33 Opioid HPI Opioid Management Most Recent Opioid Data: No Data to Display Review of Systems ROS Status of ROS 10 or more systems reviewed and unremark able except as noted in history and below Exam Narrative Exam Narrative: Nurses notes and vital signs reviewed and patient is not hypoxic. General: Well-appearing and in no apparent distress. Skin: Warm, dry, no pallor noted. No rash. Head: Normocephalic, the patient have a marking of almost 4-5 teeth to the left side of the face mostly the cheek only , no involvement of the eye or the eyelid and there is no other injury, no exposure of the underlying structures Neck: Supple, non-tender. Eye: Pupils are equal, round and EOMI. No scleral icterus. Ears, Nose, Mouth, and Throat: TM are clear, no nasal mucosal hypertrophy. Oral mucosa is moist, no posterior oropharynx erythema, uvula is mid-line Cardiovascular: Regular Rate and Rhythm without murmur, gallop or rub. Respiratory: No accessory muscle use or respiratory distress. Lungs are clear to auscultation, no wheezing, rales or rhonchi Chest Wall: no tenderness Back: No midline thoracic or lumbar vertebral tenderness. No CVA tenderness Musculoskeletal: normal ROM, no calf or popliteal tenderness, no lower extremity edema/swelling GI: Abdomen is soft, non-distended. Normal bowel sounds. No masses appreciated. No tenderness to palpation. No rebound, guarding, or rigidity noted. Neurological: A&O x4. No cranial nerve dysfunction observed. No truncal ataxia. Moves all extremities. Sensation intact. Psychiatric: Cooperative and interactive. Normal mood and affect. Constitutional Vital Signs, click to edit/add: Last Vital Signs Temp 98.1 F 01/27/24 12:33 Pulse 79 01/27/24 12:33 Resp 18 01/27/24 12:33 BP 150/93 H 01/27/24 12:33 Pulse Ox 97 01/27/24 12:33 O2 Del Method Room Air 01/27/24 12:33 Course Vital Signs Vital signs: Vital Signs Temperature 98.1 F 01/27/24 12:33 Pulse Rate 79 01/27/24 12:33 Respiratory Rate 18 01/27/24 12:33 Blood Pressure 150/93 H 01/27/24 12:33 Pulse Oximetry 97 01/27/24 12:33 Oxygen Delivery Method Room Air 01/27/24 12:33 Temperature 98.1 F 01/27/24 12:33 Pulse Rate 79 01/27/24 12:33 Respiratory Rate 18 01/27/24 12:33 Blood Pressure 150/93 H 01/27/24 12:33 Pulse Oximetry 97 01/27/24 12:33 Oxygen Delivery Method Room Air 01/27/24 12:33 Medical Decision Making [facility] Narrative Medical decision making narrative: Right now the patient is coming with a dog bite to the face the dog is a friend dog and is vaccinated The patient will be provided with a tetanus booster in addition to local care with bacitracin and Augmentin started on prophylaxis The patient was instructed about the importance of monitoring her symptoms she is to come back to the ER in case of any symptom concern including fever or increasing redness Discharge Plan Discharge Stand Alone Forms: Work/School Release, Portal Instructions Chief Complaint: Skin/Abscess/Foreign Body Clinical Impression: Dog bite Qualifiers: Encounter type: initial encounter Qualified Code(s): W54.0XXA - Bitten by dog, initial encounter Patient Disposition: Home, Self-Care Time of Disposition Decision: 13:11 Condition: Good Prescriptions / Home Meds: New amoxicillin-pot clavulanate 875-125 mg tablet 1 tab PO Q12H Qty: 14 0RF bacitracin 500 unit/gram ointment 1 applic topical DAILY Qty: 14 0RF Print Language: Upper Sorbian Instructions: Animal Bite (ED) Referrals: Ivelisse Georges MD [Primary Care Provider] - 1 week
[2024-01-27] MEDS: ADACEL DIPH,PERTUSS(ACELL),TET VAC/PF 0.5 ML ADULT SYRINGE IM (13:25)
[2024-01-27] MEDS: BACITRACIN 0.9 GM PACKET 1 PACKET TOPICAL (13:25)
== END 2024-01-27 13:32 | disposition home or self-care (01) ==
PROVIDERS: Emergency Provider Emergency Medicine; PCP Family Medicine
DX: S00.87XA Other superficial bite of other part of head, initial encounter (principal); W54.0XXA Bitten by dog, initial encounter; Z23 Encounter for immunization
CPT/HCPCS: 90471; 90715; 99284

== ENCOUNTER 2024-07-26 13:01 | Outpatient (OUT) | payer MEDICARE, SELFPAY ==
--- NOTE | 2024-07-26 13:05 | MM_ITS ---
Patient Name: NATHALIE RICHEY MR#: [id number] : 1955 Exam Date: 07/26/2024 Ordering Doctor: DR Ivelisse Georges M.D. RADIOLOGY REPORT PROCEDURE: MM TOMOSYNTHESIS SCREENING BI COMPARISON: MM TOMOSYNTHESIS SCREENING BI, 05/18/2023. MG MAMM SCREEN 3D [place] CAD, 02/12/2022. MG MAMM LT DIAG FU, 11/29/2020. MG MAMM SCREEN 3D [place] CAD, 06/07/2013. INDICATIONS: Screening for malignant neoplasm Calculator Name NCI Breast Cancer Risk Assessment Tool 5 Year Breast Cancer Risk Not Reported. Lifetime Breast Cancer Risk Not Reported. Personal Breast Cancer No Personal Ovarian Cancer No Treatments None Family Cancers None LOCATION: [facility] BREAST COMPOSITION: There are scattered areas of fibroglandular density. FINDINGS: RIGHT BREAST: No significant suspicious finding. Benign-appearing with noted along the chest wall . Benign-appearing calcifications are present. LEFT BREAST: No significant suspicious finding. Benign-appearing with noted along the chest wall . Benign-appearing calcifications are present. DIAGNOSTIC CATEGORY 2--BENIGN FINDING. NO CHANGE FROM COMPARISON. RECOMMENDATIONS: ROUTINE MAMMOGRAM AND CLINICAL EVALUATION IN 12 MONTHS. PLEASE NOTE: A NORMAL MAMMOGRAM DOES NOT EXCLUDE THE POSSIBILITY OF BREAST CANCER. A CLINICALLY SUSPICIOUS PALPABLE LUMP SHOULD BE BIOPSIED. Dictated by: Junaid Royal MD on 07/26/2024 at 15:56 Approved by: Junaid Royal MD on 07/26/2024 at 15:57
--- OUTSIDE RECORDS SUMMARY | 2024-07-26 13:07 | XMS_ITS | CCD ---
Author Organization [facility] Care Team Providers Care Precipitator Operator Name Role Phone DR IVELISSE GEORGES Primary Care Unavailable KARISHMA, DR IVELISSE Guzman Admitting Unavailable KARISHMA, DR IVELISSE Guzman Attending Unavailable KARISHMA, DR IVELISSE Guzman Consulting Unavailable KARISHMA, DR IVELISSE Guzman Primary Care Unavailable KARISHMA, DR IVELISSE Guzman Admitting Unavailable KARISHMA, DR IVELISSE Guzman Attending Unavailable FAIRTON, DR KEN Vaughn Consulting Unavailable KARISHMA, DR IVELISSE Guzman Consulting Unavailable Ivelisse Georges Unavailable Ivelisse Georges MD Primary Care Provider CHIDI WILKS Attending Unavailable Allergies Allergy Classification Reported Allergen(s) Allergy Type Date of Onset Reaction(s) Facility (3 sources) patient allergy list reviewed by nurse or physicia Propensity to adverse reactions 9 Comment:Done [employer] Other Medications Current Medications Medication Drug Class(es) Dates Sig (Normalized) Sig (Original) Vbwguqw-Atjudifjhu-Vrem min D (CALCIUM GUMMIES PO) (2 sources) Calcium-Phosphor u s-Vitamin D (CALCIUM GUMMIES PO) Take by mouth Active Ibuprofen (1 source) Nonsteroidal Anti-inflammatory Drug Motrin [...] Translations: [Dysthymic disorder] Onset: 06-29-2017 Chronic Other acquired deformities (2 sources) Equinus contracture of the ankle; Translations: [Contracture, right ankle] 04-24-2024 Chronic Other acquired deformities (2 sources) Equinus contracture of the ankle; Translations: [Contracture, left ankle] 04-24-2024 Chronic Other circulatory disease (3 sources) Elevated blood-pressure reading without diagnosis of hypertension; Translations: [Elevated blood-pressure reading, without diagnosis of hypertension] Episodic Other connective tissue disease (2 sources) Plantar fasciitis; Translations: [Plantar fascial fibromatosis] 04-24-2024 Episodic Other injuries and conditions due to [...] Urinalysis - DIPSTICKon 09-0 Appearance (U) clear [employer] Other Bilirubin Ql (U) Negative [employer] Other Color (U) yellow [employer] Other Glucose Ql (U) Negative [employer] Other Hemoglobin Ql (U) large [employer] Other Ketones Ql (U) Negative [employer] Other Leukocyte esterase Test strip Ql (U) moderate [employer] Other Nitrite Ql (U) Negative [employer] Other pH (U) 5.0 [pH] [employer] Other Protein Ql (U) Negative [employer] Other Specific gravity (U) [Rel density] 1.000 [employer] Other Urobilinogen (U) [Mass/Vol] normal [employer] Other Urinalysis - DIPSTICK [employer] Other MG MAMM SCREEN 3D KWAKU CADon 02-12-2022 MG MAMM SCREEN 3D KWAKU CAD Patient: NATHALIE ZIMMER Exam Date: 02/12/2022 : 1955 Gender:F Ordering : DR IVELISSE GEORGES M.D. Admission #: [id number] Family : Order #: [id number] CLICK HERE TO VIEW EXAM RADIOLOGY REPORT [...] No Treatments None Family Cancers None LOCATION: [facility] BREAST COMPOSITION: Scattered areas fibroglandular density. FINDINGS: [...] Gibbs MD on 02/13/2022 at 07:[address] [facility] Pap IG, rfx Aptima HPV, rfx 16/18,45on 01-18-[address] [facility] Comment on above: Result Comment: Perf ormed at: WB Performed By: #### P APHR2A #### [facility] [address] [address] [address] Shaheed Pearce DIAGNOSIS: Comment Normal [facility] Comment on above: Result Comment: NEGA TIVE FOR INTRAEPITHELIAL LESION OR MALIGNANCY. CELLULAR CHANGES ASSOCIATED WITH ATROPHY ARE PRESENT. Performed at: WB Performed By: #### P APHR2A #### [facility] [address] [address] [address] Shaheed Pearce HPV Aptima Negative Normal Negative [facility] Comment on above: Result Comment: This nucleic acid amplification test detects fourteen high-risk HPV types (16,18,31,33,35,39,45,51,52,56,58,59,66,68) without differentiation. Performed at: =G Performed By: #### P APHR2A #### [facility] [address] [place] [address] Dr. Shaheed Pearce Methodology: Comment Normal [facility] Comment on above: Result Comment: This liquid based ThinPrep(R) pap test was screened with the use of an image guided system. Performed at: WB Performed By: #### P APHR2A #### [facility] [address] [address] [address] Shaheed Pearce Note: Comment Normal [facility] Comment on above: Result Comment: The Pap smear is a screening test designed to aid in the detection of premalignant and malignant conditions of the uterine cervix. It is not a diagnostic procedure and should not be used as the sole means of detecting cervical cancer. Both false-positive and false-negative reports do occur. . Performed at: WB Performed By: #### P APHR2A #### [facility] [address] [address] [address] Shaheed Pearce Performed by: Comment Normal [facility] Comment on above: Result Comment: Van Zaldivar, Molding Supervisor (ASCP) Performed at: WB Performed By: #### P APHR2A #### [facility] [address] [place] [address] Dr. Shaheed Pearce Specimen adequacy: Comment Normal [facility] Comment on above: Result Comment: Sati sfactory for evaluation. Endocervical component may not be distinguished in cases of atrophy. Performed at: WB Performed By: #### P APHR2A #### [facility] [address] [place] [address] Dr. Shaheed Pearce Coding Summary.on 02-25-2021 Coding Summary. CD:[id number] G h0bWw+PGhlYWQ+TE2DIZM xV85miPNpoG0ZU3tGNU8I YVHDZARTUP5ZXX9uaQE0E QoaH4YtaiEd ZxyonBIhSJ39FYm3UQJ0k FieMVazlX6wdPEbA2w7Kk EjSG73bR19RXmtJSMhRqO 3LjZpbjsgbWFy G4wlNkMovRTsTkn+PHRhY mxlIHdpZHRoPScxMDAlJy XtbPdmOY8jFv1qWNWoOII vbGxhcHNlOiBj g1zvFPYjEQwsGN2ixKivX 6AymYQ7NNSxh5o8Io58zJ I+JTDiHSD8qAhsQVfam35 9UuJac2gvGPT5 gHUkMWcaRBC1G26nu4J5I KReJGXeMES0wUS3sS6fiU mjnkzzP8TouXQrNrH8OEI 7vCDeiH6gxBno ogpmsP8gUyh+E22UXR6QT EDCWJ5QEwc8L4IaTlwhuQ I+NE86UZLdLD40dZFdcKT fa2gcoUw2WeUw VGToMPL4bEeeMJzyc7JfJ YQcK77uaATrg2Z8EWUlsT yqtBYzRuLywRY3rG7rBEu phbdce3paklru Tatvu2hbet17jL92A67vA DlzAGFqQIX3VLJdTDUcrN xzrp6evJ6tFg9+IYpfm9m sg9dkfDk2LvRy NMQfxuAcdGmsUNL2b2HeU e47G9KzaCqnl5AgArd7bg 04wKEgc8R7pLN3UHsfTOF amP9zJRhmXbG6 VTSjQsKugC92yXNyFBnqH u8juImihYalBE6mKCLvde fvBPAowO4mIZTbfXSzeVd uVZ8rWPKkcdqn n554VeWiXHC4IRLmsUSqH 2KqeX6uHnNaQTZfAOHcB5 EwcNNdKIamH026QWacEuY 5WQXrnrAiW2Xp JMLnoSykKkH9s6S7Kw1Gx 7WtksdqPHH9ITzkFFX0He C9VzZaJlS8B8TdZvc5QIH gzPjoTV7nH2Bz HGHfqyiohpriuQI4NNUmA YXzsO87yLVmDUadRb4hr9 D1b439XXGrHKBvjT37Nb9 udDogMTBwdCBU lC5yagady6rxmzspZpZrI GEyMAt6GUj8UGAffUjmGu XhRZJ3XtQ9PUJ6rUDgwI5 wwFxjjqlnbX3g Oyc+M54yvM0kETX9BRL9z zmyETSdznBtRU56HK93G9 RyPjwvdGFibGU+PGRpdiB hsRhtBH7tRoUp v6zvj2QlZIziM2VrFVBgL CvnVnh6OMFsWST2sWC2uZ 5iKIAvVRejk5V3pKR6P6T eisZfhn8mx0mr DVIuWRzdS22wfVKjt8Z9Z VSfvAB8BWSpaTnjXiQofJ 93Oyc+CVJqqUwto6SmViu ke6ppg7xcaKp5 AyGmDKFgklBvyNmoOWV0n 7NoSa51U04bPNcqCIOuJK CkANUrKUMwhSdvyn5zyI9 wIi8+PGNvbCB3 vRW4lS7zUSKqHzT6ZFkhT 136FnSssBHqCedlr0hyy2 qncNj0AxGxMKJsngTbpLa xKEZ3s6EySg69 E59hIZjtKQYiDQKrTKFkX ORffQozld4moC6wHf8+PC 9hl5hcqa42cD71nVK+PHR xLEE1aVfxVTzl HWQsvJ7zOIebVaZ3ORHuQ oWddR89pCSnUQkrOw5xyM gzcKjtXJ0uNFEwtcmhp85 9CmZvg2koFHUm dFMwNLskPOE9R50jt2T5K HYgNHEnSLY9vHK5zA9ozT lnbjogbGVmdDsgdmVydGl nMTzyKFzqG494 IHRvcDsnPlBhdGllbnQgT fKsBRg5J4TqOhb3ZVMihL ztCS7pnCWbSSdrFn9xhHa trBlgCS6uMSMj acokn589MlIvw8gyLXVzu DDsFNrkMGC1I24mf8C4YO BlVXWsBXC5lSV6kW3eeDk nbjogbGVmdDsg vfSfiBllWIauZAiqH235E HRvcDsnPkJpcnRoIERhdG T7HN09TP80wTMrr7R1yCU 8P4BpAOFnqorl lgdmnNY8RGIhJHGfcG05I c6hlQebEr6bIIKnZUL9IE KosHXlS2IcmH9nWfJuVQY rRNVcQ0KskDYf UMsqQ132DLtvPlP8GIPer jEjO9IiSQRlnLqzQmJ1u3 Z7Yl5CD3B9TE82NB98hPM ej7B6uPB5K6Ru SQVjlbmyfqdzhRP8DYFjX LNfdL65Zx0ykMpyXe0uPR LoHBV0SGAttNIpK5SctQ6 yOiAjMDAwMDAw P8NruDVxBDfvW964ZNtbY nF1JZRwleKfG7NuXNKmsW kwXtA8b9S4Qp5UDWv7LQ6 9EE99wMSlr7M2 mCS6C6VmQAKtmoegpayta LS4RSKxPPEcdN27Fk2ebV jkXq2xBXMyHYX3XXKugEY zG9NlqJ7gPzEh PPRvLPVtB4OesARzILnaI 232EFcpWnZ6TBGihsSkC8 SwVFNrgPbzIcM5y3J7Er3 XIVSpSZ14PKQ2 iLD7QC59MT78O9HqBeaug GFibGU+PHRhYmxlIHdpZH RoPScxMDAlJyBzdHlsZT0 zPq0hODOfKAUw nNrtpGVhFkSjl1czBWWpQ VdoQK1qfAfkL3ZwbQD3VH Vky8g4Hj16G74wY7ZxmZZ +NFQodXO0lJN7 eZ5dGjTjDrZ6IRmyC542U uGffIVzRiwxn7slb7serS l4CxN2RISemnAqsCtrHIA 2a8GgFj00H15m IHdpZHRoPSIxNSUiIHZhb Lnows4jfY2fKc6+PGNvbC A6iON8uM2vOsXqNqI7JFo mK932YwKmhGJk Ihvrt0aal0znfGj0BaVcZ BYnksFwlYmgPRZ6v2OzXm 12H8OovAalt6LrGxd3vx0 1aVHpp1Q3oIU7 L0OtSXEbyxqhkLBrxUyyM A2eAWOcptmdUMHnrH6gIP NjB0w7FlCgZeL7CQeaR0N oszX8DBRxlQKf BAxoKGD1R05nn7K4LRXgZ TVyGNW8lGR5fI8acFrdwb ogbGVmdDsgdmVydGljYWw pPTjbC614ZZYv xIwtGUNzxB4cKLZumVVzk WjzWM2dHYKphvwqUu6RW4 nVZJpZEMXUSO2OMIychKL +HLClGKP3dCci RHegDXNdnL7qCJLvQ6b1M mDyTcE4NLpiO7EvBCBzpq qvVq80fG8jPuXcTqS4MPa vY2SsbqZ1XLOl lDFiRJgvXRI1D43dd2G8E EAeTMHiIYI2gKX0fH0fwF lnbjogbGVmdDsgdmVydGl fNOecNAqeQ859 LHSilSgvMeU8VcFyVzW6L FL0K6GgKiv8PPSlwMqnEY 7fzJTkZIiqTw7dyBddaDw gEV5aGYAqzlnf QMNqbM9aWIZbjPIswEftU N9iSWIwiqiyd840PoXyUQ S5OBZgnPCyZ0OquP7wZmN lHGXoGHHdM5Am fLOeHXfcQ304SCywHfY3W WOdjpFoS6WlIINslNciWs T1p3I0Za75UjHJFTDuiha vdGQ+PHRkIHN0 oArzFLpqUGQkpJ9gDIIyV 6d3OtCyAoF5JAogD2QwFO EzvohvWe36xN0lZtMzJbE 2RLdtR6VoipE3 EZMmjMPeSJpjISX0Y32rq 7J7SWEuFLSsJPZ9tCV7hF 1hbGlnbjogbGVmdDsgdmV ydGljYWwtYWxp J548ZNOteRzyRdVuoARuW TwvdGQ+DPMlIQZ0vHwoZB jcJYYsjN8dQKLyH2j5SsI oRpK0EAkjG0Nd WJTpsggfFn19gK4uZgQfS cM4VOxvP3CxbpZ9KCYhiR JmHGmrDFP7R97gj4R6SNY lUKHoQKL3nQP4 wJ6ygIxlzmpacNWpoEftp eMboXhrTWumKQyuN998OT WrgTnoWh89iFFkzRnyncN 7L7IpGrqifXP+ BZ53EPRtTX13kTTvaQHfh 6egsMs0YzDuHHHsRVR4aL szSIgog2OoPZWiO36faGD pm4T0FTEhlQoc gJAsUfPlsEC5gS8yDSbry fkbd6hexuebTcazg8ljjn 04zU57X42bLTrzWLGfOAQ zMCUiIHZhbGln di8xbX5fDu8+RVCikAC3e VY6nF6xUlSbHvB7FTibE0 05IfBwsRPrMoxep7ddb8e ksDa7QrPbUALu opOkgNekEUQ9f4VcKu02Z 29sIHdpZHRoPSIyMCUiIH XabCqkwh6rbD1sJt7+PC9 th9wirw54wK95 dHI+XCBaHUE0eCdwZUbxL PFejQ0rVDgjZqB8JYHlJh IivM57mQQpWAedYm8mlJg gqAnvRH1zFZQf gqfxg756RnIla0soERNze PTmZJngOMP1F57kg8S5HY IkDRPeUNO9cDZ7zT3iiAh nbjogbGVmdDsg uhSqcTjeOLdbMLyoL907B ZQakQicSfDueNPwW4xjgn RZNM3wEepgyVB+PHRkIHN 0eWxlPSdwYWRk mG3xALGyX0x3CvWsPyB7F CqqS3XgvsQ5YPGitWQxYN DelMNLeX2tayoup5zwbur gIzAwMDAwMDt0 IWi7VYWeaRhtWgDoKRO2Z oG8GQD1cEGirW5jnIomfm dmqL9qZow+RklOOjwvdGQ +EFVnTTC8lVds GEkdDPHzoM4bHHXzE6g7I eBrTzE9SZydN7WuxyK7KX VuiZEmFEAyyGQIbH4xwdm zy0uuxomqTgHq JROuGGc5MDc4OWMipTrjG qXjYLS8KlN8IGC5hCVroR 9kiUifhsxsvY1iVjk+TVJ OOjwvdGQ+PHRk UCN5gBiiKKvzELWlfB8fB DTeD9h1DeGbPtF1YLjeQ1 YswgW2OQLldNSlUIFbiZD CtY0ykbljh9oj vdhkKhHjUXLeAHk0PQz6N RHabRvjNoQeSIC4XfG2JG L8lPYhxU4wgYaacoaapX6 wOyc+SRN8OKM4 FU07RS22R0PeIzsuxJHmv +PHRhYmxlIHdpZHRoPS piZAXyZwPxmIsvGH9jBm9 yZGVyLWNvbGxh cHNl (more content not included)... [facility] Coding Summary. CD:[id number]:[id number] G h0bWw+PGhlYWQ+JV3TLNN zV26rcRKwjT5XF5hVDA2M LWPURZQXIR2XDH8wuQU3A BrbI4KcfzKd QhokpGOyBC74BCo9WJD4y BmcFPzojK0geNNvX8o2Iu AuAD24cI40IDjmAXDsPvF 3LjZpbjsgbWFy D8ulDpKtaAWeFoy+PHRhY mxlIHdpZHRoPScxMDAlJy TnrRctBW2gQz3sGYKfVHQ vbGxhcHNlOiBj w5vnXEBcJKntZI8lvImgU 5KjcTU4DSDji2d3Qw43jV I+XXQkIRA8pJizWUwcq82 8QrQou4lyAXU9 aKQfSDbnXPH7E48qe4H0N INtXRYvSCB6vDK5jF8zrI qlslkdI4HvoRKtWyQ7QVU 6uVRusC5nuBhf bffruV2mFvz+T57EPS7BU SHWHA2EOie0B6UnLrhkaH I+SJ83DWFuZL65zPSkyBE ok2dsiTe3QhDd HXBaEAR6uEtsLMvxz3GeV AOjE17gnCNbd1J0OHUrcP bchWCkNkJaxLK8jV4tJRg ztmvfq4ophbnw Gwusm6zfml46bF29Z86dB ZbqIZLqULM0TJKrHYSmxX qlrq7jvZ8rRy8+WKqll3t ms3bhcYp5IlQq MQJnqvOzvUyzZDT6l1StF z24X2RbqTdky1JtIre7ib 26jTNed5T3eJH8ZXeaHHU spS4bAZdyYzW3 CANaAhLexE83cGZxCIbcA y2ozFxuyLqgYT7mHWJlbg erZRLhmL1xKOYovLYblBk wSZ0gVUOmymdt h237JvZaKOM0CBQkiRGoR 1TmvU6gUcKtHDHuUWPuC6 CepEShMHcvD457GBkvYsQ 1ECTxezPsJ6Sg NLPfmXsmRxE7t5W5Mb9Vb 4IzjtpbAMR9NNzmVNC1Lu T1TsDcOjR7R1YxDtt5ZSV nhTqxWG9zG3Lq VSZebmxhsjfluKO8BCTaD UDylK70yJRjYXaoKc4va5 E1a245VUVfIXEqcS50Om5 udDogMTBwdCBU aA6fhpwot9amgdwgHhFsI VNtDOm4YYa9JUApzAkvIk VrESR3OnF1FIW4uQJxxH3 usMpimzytbM7w Oyc+B60auN4uUUW6ZEJ7v anvPKBulkKiQA85FB52C1 RyPjwvdGFibGU+PGRpdiB srFflMK0uBeKl k1rqw7DpBBpxY6JgXQNuJ TnlPot7NODyBHQ7mQP9yC 8vOZYoJYdsh8X4gXN0F5J jklUwdi4ir6wi LQUtTWxmQ52vuXPjx6T4O LGinOH9ARItwReoMsFpzS 93Oyc+SOLlqJhrf5IbPef pq8ecl7kvtFu8 UuSeAJGkbpGoaIouVBH2v 6GqYc43L18jWOaeTSJzLO JnHCLrUOMjvPygpi8twM9 wIi8+PGNvbCB3 eYE8oE4hVEGzPhJ6YQtoA 231NdHxfOTrTkbuy8gte8 lvfXx0ZuWeOVRiclJfuCk xZFF9i1DgFv14 O70gSPawKSOoGHDeDYCwZ JOmfYeyvh4vsH4yXo7+PC 7qr8nxrd09rE50sVU+PHR kXXB2iCjwOLbd RDDfkY8cAHasCtI0JMFsO lNjtG78pQCrLDylIr6wqF xtuXkfAE3eOYXdeekbv39 0YxNzc1bzAPQh pPTbRSbfOIP5J06sf4C8X ZVzBKOeNQR5bVV3qD0qqO lnbjogbGVmdDsgdmVydGl gPYnaQLuvB499 IHRvcDsnPlBhdGllbnQgT iNgQAd3O3NiQgm8XFJwyN afXL1xpBOaNYtjLx2hhPq isCyyXO9eRBVu llodp960RrXmr4duHUGyi OBsAXhlHZT6X56ac7P5DN KoZZMtJDD1uXX2pI8nqDn nbjogbGVmdDsg xzUfdFpxIVruXVreP769R HRvcDsnPkJpcnRoIERhdG G4LA81RH39lLKru2D5fPK 9D5HjMJWhxxkl pmpkjNL3ZSEiLCDnkU95I l4ddKzkBf4oDRSgUCI1RQ DpzDDlJ7ZozJ7lPbMlWAD qFZCbX7SfhKLq VKibE016JEeqXsK7ATDxx xBrH5TcOGCpgGoeAbR7c1 A3Lz4FD1M1MP63QY89xRR vw4O9aPN1Q5Gc ASQzfsbejikpuYV9CJWcZ ZGumS75Qa5nfBtvRq6jUK VqMZQ5ARZdqWBlB6SkhK2 yOiAjMDAwMDAw U8PpiAPeMTbqR196KSxdZ sC1UWVezcFqG5UkSRWdzB fzUtF2i4K6Rv7XWKg2PO8 2XJ79qDXrt2H1 dNJ3J3HpQXYxdlrxscxgu AD1SWJuYWRgnU78Ic7gcM arZt3lYGNcMOV9VSYyyRX iJ7RauB7dSkFn AQMsNZQcX7LpuNLtLZdpD 069MJkiKyA2EPEfdgVgO0 GoYJPipHsqNcO2p2L3Ry8 JIYIkVL66BGL4 aXG2LT55AA97G2OeQhyuv GFibGU+PHRhYmxlIHdpZH RoPScxMDAlJyBzdHlsZT0 wAm4yXMJhHADo kSlapUUlNyXrr7jqUQDzX WkvBN0qyHihW8ZggKQ1BJ Roe4p0Ns25O79bH7TaaVL +WQHzwLO5cSR7 gP0xSeGnRoQ7REwuG789D cXzuOFiUewak0xkn7jdeL j4IxE4TBQycnXqxBtpUJS 8e1GqQb29N29s IHdpZHRoPSIxNSUiIHZhb Uqcxu1dhE8aSi9+PGNvbC Q5cZF4gV5lMvRbOcZ6PXd kT118GxMnxOTz Xeljs8xmb6urdBu6BpSvL JCgggCzlJgtODE2j1QmAq 20D9TqsKpsr0MyCyh7cg3 7mOCbl4C8dVM7 D7JjROAxczgayLJjmYwwF M0sOVXtlzdfDUTdkJ0iSV EvI4r3MwKkVjE3WVhfB1Q jibA9ULVfqLCr SKdrKOL6H91gk3E0ARPkZ JXfTBL3dVP7fY7bzTgdbw ogbGVmdDsgdmVydGljYWw rIUwjZ408KMXe xOmaKLAokD8kVHXypDLoy LmzQJ3tTYPbaqnuZx1AP9 qWIUzMLUVPRE8FBOoqpDG +YDKmDCD5sOkp UIgoIOTbhI0tEGGbM6v7X tHvRnJ2YEmcR4ZxBVRygi jaHw66sI6pGvVnKgC3AMd aY2GtypK7LGOh sXZuNMawCYC9P57ht4N7T GMdEYPgUMB9fTV1tA6xeD lnbjogbGVmdDsgdmVydGl sMIqoSBbuO181 DXMaiSbaCfF5NoEgKoS0V YG9G9LvWay9MQPswLxqFO 5sfPZbQQhpNm1dqVuyhPz lBF3lOLAistgw HKGdqD4cIILsiOKpgKyeF H1gCLIpphmea544BjTzGM J8VVFntNYaZ0PsaZ7nWxM pLADeJOClL9Ve vPLhMQudA789WArlXbK6D WWceqNxM4FmDLUtbFnpOs H1b2P6El64NBTGKGBwhfh vdGQ+PHRkIHN0 iIinIJinXZGvjO6hXTCmO 5w3DkKxHzC5NLzbW5JjZK ZpnlirOo55dH8yFrRvUiL 7MUhhS3ZdnpK7 COPvqCKgIUsvRXD4K41wq 8G5NNTgOVTeAAX4zRW1iB 1hbGlnbjogbGVmdDsgdmV ydGljYWwtYWxp I953FGMosSsnUrNmkUZaP TwvdGQ+DWMqOXW9nJfgJE leCXZiiY4pYFOpO7m4XsM dQtN0BAftC1Bx HRVpeodcDw65lI4oImIxS tW4YGizA5WsvnM6XRAktJ IvAQorWJC7D26zh4L3KYH eDHZxLDA8nIS5 gA7apGmfjidscWZcaIhqc tSwmGfuLZdfAUonI081KR GwkPbbRw07gGHmiMzicfY 0T8IkVlkktPP+ IP53UHFcZG62eMPljIWod 8umeDq9TcEaTMSjUEG5jX siUBjgu4WnNNPrX41kuBF at8U6XGQreHjv bARzTaIyiZO5sU3iMAege vnwx2jvgitnMuetn3lmfc 14zD96M33jGShgDDOfEBO zMCUiIHZhbGln va8qwI0zDy0+ZWQvnUK0b OJ9rD9uCdTzHmA8CVbcR2 88QyMtwKNiDhwgq1zwg7e caAp1MxBbKKXr vzDshIpmCDQ7j6QxOh77W 29sIHdpZHRoPSIyMCUiIH OfdSvhxr5jdP8oSy6+PC9 eg7ihse43kC58 dHI+BHJnKBZ2jPgsNYtaH WEuzY9iDBepTgV4HEDxYr QhvK23nPMiNAfsVi3brJg rgXjlXC0kCOUr ezeyk233PrLks5tpEZLrv QYwMPwpNNR2C23am4F5XV NuJAPgNFK5jXQ0eB9ljVh nbjogbGVmdDsg hwCrfRydAAmlCIhlH461T EUpfHheYgVbyWSpJ2nnub DIGX7uBipewRW+PHRkIHN 0eWxlPSdwYWRk mK8yDKYyU0j2OdDfGbK3W BodX9RyonQ7PHKvcCGcBQ FitWALvR3gepgdz7ioofj gIzAwMDAwMDt0 WXk7ZNYdxOmyRbYlPKL3Z tH1OBH3nNLoaF5lkSkynd lihJ5oUgq+RklOOjwvdGQ +JGVrTBU0jMhz HTueVWZlkK9yBJLlC8b3B uCgThP0KFixJ3UescM7XU QgmFFwMMOosDORwO6fpio lr2rjehayHnYb BIBgSFg4IOc9PDVtfYafB eEqOBV2RwX3UZQ1iXIraI 2mwVdhkpixkQ9hGzi+TVJ OOjwvdGQ+PHRk MXF5uQcmZArsDKDylB2mG LVwR0i7GbBwLxI0YYibY9 CnfvL7QYGsnAPhANYwnXT PeH8jyxqsk1xi oejaBlVnRLUxYGp5SNb9Z NGmoZcrViVeOLA7YvY1QA W7iHOraI9cdUygtfjvtF8 wOyc+UGO7GGA6 PC54CE20L5HvVzbubBRty +PHRhYmxlIHdpZHRoPS acVFCqDoRvlAyuVU2nOf2 yZGVyLWNvbGxh cHNl (more content not included)... Normal [facility] Physician Orderon 02-21-2021 Physician Order [id number] Normal [facility] Auto Diffon 11-25-2020 Basophils/100 WBC (Bld) 0.8 % Normal 0.0-2.0 [facility] Comment on above: Order Comment: Order Added by Discern Expert. Performed By: #### 2 [id number], [id number], 0236715, 0119107, 3769454 #### [facility] [address] [place] [address]2840 Basophils/Leukocy akrla Auto (Bld) [Pure # fraction] 0.1 E9/L Normal 0.0-0.2 [facility] Comment on above: Order Comment: Order Added by Discern Expert. Performed By: #### 2 590956, [id number], 2207351, 1003402, 4015046 #### [facility] [address] [place] [address] 08937 Eosinophils/100 WBC (Bld) 1.3 % Normal 0.0-8.0 [facility] Comment on above: Order Comment: Order Added by Discern Expert. Performed By: #### 2 236224, 71920300, 8101529, 9890312, 1867316 #### [facility] [address] [place] [address] 23254 Eosinophils/Leuko cytes Auto (Bld) [Pure # fraction] 0.1 E9/L Normal 0.0-0.5 [facility] Comment on above: Order Comment: Order Added by Discern Expert. Performed By: #### 2 719512, 93782079, 3711745, 2724634, 9111782 #### [facility] [address] [place] [address] 41201 Lymphocytes/100 WBC (Bld) 42.5 % Normal 14.0-50.0 [facility] Comment on above: Order Comment: Order Added by Discern Expert. Performed By: #### 2 933508, 39514353, 7739823, 1080050, 8055469 #### [facility] [address] [place] [address] 34325 Lymphocytes/Leuko cytes Auto (Bld) [Pure # fraction] 2.8 E9/L Normal 1.0-4.0 [facility] Comment on above: Order Comment: Order Added by Discern Expert. Performed By: #### 2 123262, 46166386, 1712210, 4221313, 8852294 #### [facility] [address] [place] [address] 15460 Monocytes/100 WBC (Bld) 5.9 % Normal 4.0-14.0 [facility] Comment on above: Order Comment: Order Added by Discern Expert. Performed By: #### 2 855526, 81449854, 0219449, 5856289, 3064422 #### [facility] [address] [place] [address] 39610 Monocytes/Leukocy karla Auto (Bld) [Pure # fraction] 0.4 E9/L Normal 0.2-1.0 [facility] Comment on above: Order Comment: Order Added by Discern Expert. Performed By: #### 2 540636, 82600227, 8772506, 3276966, 7420436 #### [facility] [address] [place] [address] 08684 Neutrophils/100 WBC (Bld) 49.5 % Normal 36.0-75.0 [facility] Comment on above: Order Comment: Order Added by Discern Expert. Performed By: #### 2 810922, 83315614, 1377335, 0350996, 4746290 #### [facility] [address] [place] [address] 02049 Neutrophils/Leuko cytes Auto (Bld) [Pure # fraction] 3.2 E9/L Normal 2.0-7.5 [facility] Comment on above: Order Comment: Order Added by Discern Expert. Performed By: #### 2 962237, 96550047, 3051446, 1084648, 9640280 #### [facility] [address] [place] [address] 95398 CBC w/ Auto Diffon Erythrocyte distribution width (RBC) [Ratio] 14.1 % Normal 10.9-14.2 [facility] Comment on above: Performed By: #### 2 325739, 20145113, 1466188, 2048975, 1997034 #### [facility] [address] [place] [address] Hematocrit (Bld) [Volume fraction] 37.0 % Normal 34.0-46.0 [facility] Comment on above: Performed By: #### 2 335734, 90077636, 3227098, 3796284, 8336759 #### [facility] [address] [place] [address] Hemoglobin (Bld) [Mass/Vol] 12.1 g/dL Normal 12.0-16.0 [facility] Comment on above: Performed By: #### 2 066168, 06980846, 9356594, 1459008, 8031562 #### [facility] [address] [place] [address] MCH (RBC) [Entitic mass] 27.8 pg Normal 27.0-34.0 [facility] Comment on above: Performed By: #### 2 725896, 67043957, 6612704, 3942556, 4546908 #### [facility] [address] [place] [address] 88344 MCHC (RBC) [Mass/Vol] 32.7 g/dL Normal 31.4-36.0 [facility] Comment on above: Performed By: #### 2 784685, 93054761, 6934973, 7893148, 5258865 #### [facility] [address] [place] [address] MCV (RBC) [Entitic vol] 84.8 fL Normal 80.0-100.0 [facility] Comment on above: Performed By: #### 2 611328, 68055211, 2422020, 7081121, 3444527 #### [facility] [address] [place] [address]3909 Platelet mean volume (Bld) [Entitic vol] 8.2 fL Normal 6.4-10.8 [facility] Comment on above: Performed By: #### 2 397315, 43934919, 2894458, 4620844, 3371770 #### [facility] [address] [place] [address] 14116 Platelets (Bld) [#/Vol] 307.0 E9/L Normal 150.0-500.0 [facility] Comment on above: Performed By: #### 2 550705, 30257235, 3838459, 8438510, 5094332 #### [facility] [address] [place] [address] 48985 RBC (Bld) [#/Vol] 4.4 E12/L Normal 4.3-5.9 [facility] Comment on above: Performed By: #### 2 635085, 57414634, 4240766, 3086155, 3535211 #### [facility] [address] [place] [address] 38650 WBC corrected for nucl RBC Auto (Bld) [#/Vol] 6.5 E9/L Normal 4.0-11.0 [facility] Comment on above: Performed By: #### 2 370262, 16175342, 3391868, 0679877, 4524848 #### [facility] [address] [place] [address] 71041 CMPon 11-25-2020 Albumin [Mass/Vol] 4.4 g/dL Normal 3.3-5.0 [facility] Comment on above: Performed By: #### 2 899124, 37031561, 3094009, 2884136, 7346245 #### [facility] [address] [place] [address] 18284 Albumin/Globulin (S) [Mass conc ratio] 1.5 Normal 1.1-2.2 [facility] Comment on above: Performed By: #### 2 131564, 24242494, 6995621, 6876187, 0559448 #### [facility] [address] [place] [address] ALP [Catalytic activity/Vol] 77 Int._Unit/L Normal 21-98 [facility] Comment on above: Performed By: #### 2 090270, 16354582, 9174989, 6307998, 3475954 #### [facility] [address] [place] [address] ALT No additional P-5'-P [Catalytic activity/Vol] 23 Int._Unit/L Normal 6-46 [facility] Comment on above: Performed By: #### 2 873564, 75191586, 5228242, 1654695, 9171237 #### [facility] [address] [place] [address] Anion gap [Moles/Vol] 13 mmol/L Normal 6-16 [facility] Comment on above: Performed By: #### 2 453342, 51523196, 5378024, 1912395, 7232212 #### [facility] [address] [place] [address] AST [Catalytic activity/Vol] 26 Int._Unit/L Normal 5-43 [facility] Comment on above: Performed By: #### 2 242837, 13885465, 8339667, 8548710, 3793691 #### [facility] [address] [place] [address] Bilirubin [Mass/Vol] 0.4 mg/dL Normal 0.0-1.1 [facility] Comment on above: Performed By: #### 2 870732, 89592761, 8379593, 7409944, 1270447 #### [facility] [address] [place] [address] Calcium [Mass/Vol] 9.2 mg/dL Normal 8.9-11.1 [facility] Comment on above: Performed By: #### 2 828480, 54156375, 2514220, 0828211, 0115838 #### [facility] [address] [place] [address] Chloride [Moles/Vol] 103 mmol/L Normal 101-111 [facility] Comment on above: Performed By: #### 2 232616, 17761713, 2186358, 8837543, 3323494 #### [facility] [address] [place] [address] CO2 [Moles/Vol] 24 mmol/L Normal 21-31 [facility] Comment on above: Performed By: #### 2 922951, 56959753, 1497094, 4220340, 4679908 #### [facility] [address] [place] [address] Creatinine [Mass/Vol] 0.9 mg/dL Normal 0.5-1.3 [facility] Comment on above: Performed By: #### 2 [id number], [id number], 3190657, 6242591, [id number] #### [facility] [address] [place] [address] Globulin (S) [Mass/Vol] 3.0 g/dL Normal 1.4-4.0 [facility] Comment on above: Performed By: #### 2 965226, [id number], 3836562, 6043195, [id number] #### [facility] [address] [place] [address] Glucose [Mass/Vol] 101 mg/dL Normal 55-199 [facility] Comment on above: Result Comment: If t his glucose result represents a fasting glucose, interpretation should refer to the following reference range: 55-99 mg/dL Performed By: #### 2 715852, [id number], 2453013, 1182260, 7372906 #### [facility] [address] [place] [address] Potassium [Moles/Vol] 3.8 mmol/L Normal 3.5-5.3 [facility] Comment on above: Performed By: #### 2 509642, 41452738, 9809089, 0184549, 8376250 #### [facility] [address] [place] [address] Protein [Mass/Vol] 7.4 g/dL Normal 6.0-7.8 [facility] Comment on above: Performed By: #### 2 037167, [id number], 9502741, 2668757, 8258643 #### [facility] [address] [place] [address] Sodium [Moles/Vol] 136 mmol/L Normal 135-145 [facility] Comment on above: Performed By: #### 2 489621, 27291928, 6744217, 1564872, 7029336 #### [facility] [address] [place] [address] Urea nitrogen [Mass/Vol] 18 mg/dL Normal 5-21 [facility] Comment on above: Performed By: #### 2 854586, 39570120, 3639746, 2682000, 1784669 #### [facility] [address] [place] [address] Urea nitrogen/Creatini ne [Mass ratio] 20 No Units Normal 10-20 [facility] Comment on above: Performed By: #### 2 204129, 56965498, 2208750, 1808893, 0709096 #### [facility] [address] [place] [address] Consent for Treatmenton 10-30 Consent for Treatment [id number] .[id number]:127 Normal [facility] Lipid Panelon 11-25-2020 Cholesterol [Mass/Vol] 282 mg/dL High 120-200 [facility] Comment on above: Performed By: #### 2 141681, 12071508, 1092624, 8592141, 7716920 #### [facility] [address] [place] [address] Cholesterol in HDL [Mass/Vol] 111 mg/dL Invalid Interpretation Code [facility] Comment on above: Result Comment: HDL > or equal to 60 mg/dL: Low cardiovascular risk HDL < 40 mg/dL : High cardiovascular risk Performed By: #### 2 490511, 01040147, 6140217, 6028826, 4885939 #### [facility] [address] [place] [address] Cholesterol in LDL [Mass/Vol] 120 mg/dL Normal <=129 [facility] Comment on above: Performed By: #### 2 171909, 86112131, 8392791, 2783608, 3083318 #### [facility] [address] [place] [address] Cholesterol in VLDL [Mass/Vol] 21 mg/dL Normal 7-40 [facility] Comment on above: Performed By: #### 2 622621, 21953264, 2384554, 3948836, 8540877 #### [facility] [address] [place] [address] Triglyceride [Mass/Vol] 107 mg/dL Normal <=149 [facility] Comment on above: Performed By: #### 2 732909, 76950983, 8350862, 9958574, 3549890 #### [facility] [address] [place] [address] Physician Orderon 11-25-2020 Physician Order [id number] 1.00CD:127 Normal [facility] eGFRon 11-25-2020 GFR/1.73 sq M.predicted among blacks MDRD (S/P/Bld) [Vol rate/Area] mL/min/{1.73_m2} Normal >=59 [facility] Comment on above: Order Comment: Order added by Discern Expert. Result Comment: eGFR is race adjusted. AA=. Performed By: #### 2 855748, 81378744, 4330465, 6326075, 1842198 #### [facility] [address] [place] [address] GFR/1.73 sq M.predicted among non-blacks MDRD (S/P/Bld) [Vol rate/Area] mL/min/{1.73_m2} Normal >=59 [facility] Comment on above: Order Comment: Order added by Discern Expert. Result Comment: Stick Inserter cathryn kidney disease could be indicated at eGFR's of less than 60 mL/min/1.73m2. Kidney failure is indicated at less than 15 mL/min/1.73m2. Performed By: #### 2 553930, 44307550, 8897284, 1573243, 1132841 #### [facility] [address] [place] [address] Vital Signs Date Time Vital Sign Value Performing Clinician Faci lity 04-24-2024 14:050 Body height 160 cm Chidi Wilks DPM Work Phone: [facility] 04-24-2024 14:050 Body mass index (BMI) [Ratio] 25.51 kg/m2 Chidi Wilks DPM Work Phone: [facility] 04-24-2024 14: Body weight 65.32 kg Chidi Wilks DPM Work Phone: [facility] Encounters Encounter Date Encounter Type Care Provider Facility Start: 04-24-2024 End: 04-24-2024 Office outpatient new 30 minutes Chidi Wilks DPM Work Phone: [facility] Comment on above: Plantar fasciitis (P rimary Dx); Equinus contracture of right ankle; Equinus contracture of left ankle Start: 04-24-2024 End: 04-24-2024 ambulatory CHIDI WILKS Not Available Start: 04-24-2024 End: 04-24-2024 Bamboo flowsheet Chidi Wilks DPM Work Phone: [facility] Start: 04-24-2024 End: 04-24-2024 Bamboo flowsheet Chidi S Brodieher DPM Work Phone: [facility] Start: 07-05-2023 End: 07-05-2023 ambulatory Ivelisse Georges Other [employer] Other Start: 07-05-2023 Telephone encounter Ivelisse Georges [facility] Start: 05-11-2023 End: 05-11-2023 ambulatory Ivelisse Georges Other [employer] Other Start: 05-11-2023 Telephone encounter Ivelisse Georges [facility] Start: 01-29-2023 End: 01-29-2023 ambulatory Ivelisse Georges Other [employer] Other Start: 01-29-2023 Nursing evaluation o f patient and report Ivelisse Georges [facility] Start: 02-12-2022 End: 02-13-[address] IVELISSE GEORGES Facility:[facility] Start: 01-14-2022 Adult health examination Ivelisse Georges Other [employer] Other Start: 01-14-2022 End: 01-14-[address] IVELISSE GEORGES Facility:[facility] Procedures Date Procedure Procedure Detail Performing Clinician Start: 09-21-2018 Screening for osteoporosis Ivelisse Georges Other Start: 08-17-2018 Mammography Chidi alcala DPM Work Phone: Start: 08-15-2018 Screening for malign ant neoplasm of colon Ivelisse Georges Other Start: 06-29-2017 General examination of patient Ivelisse Georges Other Start: 06-29-2017 Screening mammography Ketan Georges Other Screening for malign ant neoplasm of breast Ivelisse Georges Other Plan of Treatment Date Care Activity Detail Author Start: 02-17-2027 Screening for malign ant neoplasm of colon [facility] Start: 04-24-2024 End: 04-24-2024 Patient encounter procedure 04/24/2024 2:30 PM EST Office Visit [facility] [address] [place] [address] Chidi Wilks DPM [address] [place] [address] Arrived [facility] Comment on above: Arrived Start: 01-30-2024 Influenza vaccination Influenza Vacc ine (#1) [facility] Start: 08-18-2019 Screening for malign ant neoplasm of breast Mammogram [facility] Start: 1955 Screening for malign ant neoplasm of colon [facility] Immunizations Immunization Date Immunization Notes Care Provider Jamal rodrigues 05-17-2023 influenza virus vaccine, unspecified formulation Chidi Wilks DPM Work Phone: [facility] 04-21-2023 influenza, high dose seasonal, preservative-free Ivelisse Georges Other [employer] Other 06-11-2020 zoster vaccine, live Ivelisse Georges Other [employer] Other 02-16-2020 zoster vaccine, live Ivelisse Georges Other [employer] Other 08-03-2019 influenza virus vaccine, split virus (incl. purified surface antigen) Ivelisse Georges Other [employer] Other Payers Date Payer Category Payer Medicaid [employer] MEDICARE A DVANTAGE [id number] 1960 Medicare [id number] 1960 Medicare [id number] 1955 Unknown [id number] 1955 Unknown [id number] 1955 Unknown [id number] Social History Date Type Detail Facility Sex Assigned At [employer] Other Tobacco smoking status DCIS Tobacco smoking consumption unknown [facility] Start: 1955 Sex assigned at Not on file [facility] Start: 04-24-2024 Tobacco smoking status DCIS Never smoked tobacco [facility] Start: 04-24-2024 Tobacco use and exposure Smokeless tobacco non-user [facility] Start: 04-24-2024 Alcoholic beverage intake Current drinker of alcohol (finding) [facility] Start: 04-24-2024 Alcohol Comment once a week [facility] History of Present illness Narrative 04-24-2024 Chidi Wilks, THERESA - 04/24/2024 2:30 PM EST Note Date & Type Note Facility 04-24-2024 History of Presen t illness Narrative Images from the original note were not included. Subjective Patient ID: Nathalie Zimmer is a 68 y.o. female who presents for Bunions (Pt is here today complaining BL bunion area pain, Rt is worse than Lt. When it is bothersome she isn't doing any certain activity. Pain radiates into arch area and the arch is more painful than the bunion. Tried OTC motrin, no relief /SS: 8.5). HPI This is a new patient who presents to clinic with concern of bilateral foot pain. This has been going on for a few months. Patient states that she will occasionally throughout the day get sharp pains in the plantar aspect of the feet. Lasts for maybe 5 minutes or so and then goes away. Described as sharp, aching in nature. No treatment tried. She seems to think that supportive shoes and power step orthotics have helped. Review of Systems Constitutional: Negative for activity change and fatigue. Respiratory: Negative for chest tightness and shortness of breath. Cardiovascular: Negative for chest pain and leg swelling. Musculoskeletal: Negative for arthralgias and joint swelling. Skin: Negative for color change and wound. Neurological: Negative for weakness and numbness. Psychiatric/Behavioral: Negative for agitation and behavioral problems. Hematological: Does not bruise/bleed easily. Allergic/Immunologic: Negative for immunocompromised state. Past medical History History reviewed. No pertinent past medical history. Medications Current Outpatient Medications: Tvbaqou-Scgzalzywl-Tfgawss D (CALCIUM GUMMIES PO), Take by mouth, Disp: , Rfl: Allergies Patient has no known allergies. Past Surgical History Past Surgical History: Procedure Laterality Date BUNIONECTOMY Right SECTION, CLASSIC x3- with appendectomy Family History Family History Problem Relation Name Age of Onset Cancer Mother Thyroid Heart disease Mother Objective Physical Exam HENT: Head: Normocephalic and atraumatic. Cardiovascular: Pulses: Normal pulses. Pulmonary: Effort: Pulmonary effort is normal. No respiratory distress. Abdominal: Palpations: There is no mass. Musculoskeletal: Cervical back: No rigidity. Comments: Weightbearing examination reveals pes planus morphology. She is able to perform a double heel rise test. There is no tenderness to palpation bilaterally. Range of motion of the 1st MTP smooth, nonpainful bilaterally. Hallux valgus deformity on the left foot with medial eminence formation, lateral deviation of the hallux. Ankle dorsiflexion 0 degrees with the knee extended, 5 degrees with the knee flexed bilaterally. Muscle strength 5/5 for all quadrants without tenderness bilaterally. Skin: Capillary Refill: Capillary refill takes less than 2 seconds. Findings: No lesion or rash. Neurological: Mental Status: She is alert. Comments: No loss of protective sensation, gross sensation intact. Psychiatric: Mood and Affect: Mood normal. Behavior: Behavior normal. Assessment/Plan ICD-10-CM 1. Plantar fasciitis M72.2 2. Equinus contracture of right ankle M24.571 3. Equinus contracture of left ankle M24.572 Patient examined and evaluated. She has no tenderness on examination and I have elected not to get radiographs. At this point her subjective symptomatology seems to be consistent with plantar fasciitis. I recommend taking jnfx-nxl-eihuqqz anti-inflammatory daily for 2 weeks to help suppress the mild inflammation that seems to be occurring. I recommend supportive shoes, power step orthotics which she is already using. Lastly I discussed and stressed the importance of stretching exercises focusing on gastrocnemius contracture. Home exercise program printed off and given to her today. Complete daily as instructed. For now I will see her as needed. If symptoms persist or worse and I recommend close follow up for radiographs and consideration of steroid therapy. This note was created with the assistance of a speech recognition program. While intending to generate a timely document that accurately reflects the content of the visit, no guarantee can be provided that every grammatical or spelling mistake has been or will be identified or corrected. Thank you for your understanding. Chidi Wilks DPM documented in this encounter [facility] Evaluation note 01-29-2023 Note Date & Type Note Facility 01-29-2023 Evaluation note Encounter Date Diagnosis Assessment Notes Jan, Dysuria (ICD-10 - R30.0) [facility] [employer] Other Evaluation note Note Date & Type Note Facility Evaluation note No Information [facility] [employer] Other Evaluation note Note Date & Type Note Facility Evaluation note Diagnosis Plantar fasciitis- Primary Plantar fascial fibromatosis Equinus contracture of right ankle Equinus contracture of left ankle documented in this encounter [facility] History general Narrative - Reported Note Date [...] Problem Comment : x 3 Appendectomy Colonoscopy 2004 - normal L cataract 08/2018, Problem Status : Active, Surgical History Problem Title : surg ical procedures, hx of, Problem Description : surgical procedures, hx of, Problem Comment : x 3 Appendectomy Colonoscopy 2005 - normal, Problem Status : Active, Hospitalization History See Above [facility] [facility] [facility] Other History general Narrative - Reported Note Date & Type Note Facility History general Narrative - Reported Type Medical History Hyperlipemia Medical History Transient elevated blood pressur e Medical History Abnormal mammogram of left breas t Surgical History bunionectomy Surgical History C section Hospitalization History See Above [facility] [facility] Other Summary Purpose Family History No Family History Records FoundNo Family History Records FoundNo Family History Records Found Advance Directives No Advanced Directives Records FoundNo Advanced Directives Records FoundNo Advanced Directives Records Found Additional Source Comments INFORMATION SOURCE (unrecogn ized section and content) DATE CREATED AUTHOR 03/12/2021 [facility] DATE CREATED AUTHOR AUTHOR'S ORGANIZ ATION 02/27/2022 [facility] DATE CREATED AUTHOR AUTHOR'S ORGANIZ ATION 04/26/2024 [facility] EPIC REASON FOR VISIT (unrecogniz ed section and content) Reason Comments Bunions Pt is here today com plaining BL bunion area pain, Rt is worse than Lt. When it is bothersome she isn't doing any certain activity. Pain radiates into arch area and the arch is more painful than the bunion. Tried OTC motrin, no relief SS: 8.5 Care Teams (unrecognized sec tion and content) Precipitator Operator Relationship Specialty Start Date End Date Ivelisse Georges MD [address] [place] [address] PCP - General Family Medicine 03/30/24 Precipitator Operator Relationship Specialty Start Date End Date Ivelisse Georges MD [address] [place] [address] PCP - General Family Medicine 03/30/24 FOR RECORDS PERTAINING TO PATIENTS WHO ARE [...] BE BASED ON THE PRIMARY CLINICAL RECORDS. [employer] provides no warranty or guarantee of the accuracy or completeness of information in this document.
== END 2024-07-26 13:02 | disposition home or self-care (01) ==
LOC: MAMMO 13:01
PROVIDERS: PCP Family Medicine; Visit Provider Family Medicine
DX: Z12.31 Encounter for screening mammogram for malignant neoplasm of breast (principal)
CPT/HCPCS: 77063; 77067

== ENCOUNTER 2024-12-11 11:16 | Emergency (ER) | payer MEDICARE, SELFPAY ==
[2024-12-11 11:25] VITALS: BP 145/89; PULSE 69; TEMP 36.9; O2SAT 100; BMI 56.6
--- NOTE | 2024-12-11 11:31 | XR_ITS ---
The [address] [address] Patient Name: NATHALIE RICHEY MRN: [id number] date: 1955 Sex: F Assigned Patient Location: ER Current Patient Location: ED.MAIN Accession/Order Number: [id number] Exam Date: 12/11/2024 12:30 Report Date: 12/11/2024 12:31 At the request of: SUSU VELEZ MD Procedure: XR ankle RT min 3V RIGHT ANKLE - 3 views CLINICAL DATA: Right ankle pain and swelling after fall playing pickle ball today COMPARISON: None AP, lateral and oblique views were obtained. There is an oblique fracture at the distal fibular metadiaphysis. This is not significantly displaced. There is no additional fracture or dislocation. The talar dome is intact. There are small calcaneal spurs. A screw is seen at the distal first metatarsal. Lateral soft tissue swelling is noted. XR/XR ankle RT min 3V IMPRESSION: FRACTURE AT THE DISTAL FIBULA Impression dictated by: Fouzia Palafox M.D. 12/11/2024 12:31 PM Dictation Location: [place] [address] Electronically authenticated by: [id number] Y Date: 12/11/2024 12:31
--- OUTSIDE RECORDS SUMMARY | 2024-12-11 11:32 | XMS_ITS | Clinical Summary ---
Author Organization [employer] Address [id number] [place] [address] Care Team Providers Care Waiter/Waitress Formal Name Role Phone Ivelisse Georges MD Primary Care Provider [phone] Allergies No known active allergies Medications FLUoxetine (PROzac) 20 mg capsule Take 20 mg by mouth daily. Active Active Problems No known active problems Family History Medical History Relation Name Comments Cancer Father Heart disease Mother Lupus Mother Thyroid disease Mother Breast cancer Neg Hx Relation Name Status Comments Father Mother Social History Tobacco Use Types Packs/Day Years Used Date Smoking Tobacco: Never Smokeless Tobacco: Never Alcohol Use Standard Drinks/Week Comments Yes 0 (1 standard drink = 0.6 oz pur e alcohol) occassionally Childcare Answer Date Recorded Childcare Unknown 11/09/2018 Employment Answer Date Recorded Employment Unknown 11/09/2018 Purpose - Life Answer Date Recorded Purpose and direction in life Unknown Comments No Sex and Gender Information Value Date Recorded Sex Assigned at Not on file Legal Sex Female 11:39 AM EDT Gender Identity Not on file Sexual Orientation Not on file Last Filed Vital Signs Vital Sign Reading Time Taken Comments Blood Pressure 126/80 09/27/2018 3:30 PM EDT Pulse 76 09/27/2018 3:30 PM EDT Temperature 36.7 C (98.1 F) 09/27/2018 1:31 PM EDT Respiratory Rate 16 09/27/2018 1:31 PM EDT Oxygen Saturation 97% 09/27/2018 3:30 PM EDT Inhaled Oxygen Concentration - - Weight 65.8 kg (145 lb) 09/27/2018 1:31 PM EDT Height 160 cm (5' 3 ) 09/27/2018 1:31 PM EDT Body Mass Index 25.69 09/27/2018 1:31 PM EDT Plan of Treatment Not on file Medical Devices Implanted Type Area Contact Center Specialist Device Identifier Shelf Expiration Date Model / Serial / Lot Lens Iol Ultrasert 20.5d - [id number] - [id number] Implanted:Qty: 1 on 09/27/2018 by Sally oTdd MD at [facility] Lens Left: [employer] 12/29/2019 [id number] 20.5 / [id number] / NA Insurance [employer] Care Teams Waiter/Waitress Formal Relationship Specialty Start Date End Date Ivelisse Georges MD [address] [place] [address] PCP - General 08/15/18
--- OUTSIDE RECORDS SUMMARY | 2024-12-11 11:32 | XMS_ITS | Clinical Summary ---
Author Organization [facility] Address [address] [place] [address] Care Team Providers Care Brokerage Branch Manager Name Role Phone Ivelisse Georges MD Primary Care Provider [phone] Allergies No known active allergies Medications Calcium-Phosphor us-Vitamin D (CALCIUM GUMMIES PO) Take by mouth Active Family History Medical History Relation Name Comments Cancer Mother Thyroid Heart disease Mother Relation Name Status Comments Mother Social History Tobacco Use Types Packs/Day Years Used Date Smoking Tobacco: Never Smokeless Tobacco: Never Tobacco Cessation:Counseling Given: Not Answered Alcohol Use Standard Drinks/Week Comments Yes 0 (1 standard drink = 0.6 oz pur e alcohol) once a week Comments Unknown Sex and Gender Information Value Date Recorded Sex Assigned at Not on file Legal Sex Female 7:11 PM EDT Gender Identity Not on file Sexual Orientation Not on file Last Filed Vital Signs Vital Sign Reading Time Taken Comments Blood Pressure - - Pulse - - Temperature - - Respiratory Rate - - Oxygen Saturation - - Inhaled Oxygen Concentration - - Weight 65.3 kg (144 lb) 04/24/2024 2:12 PM EST Height 160 cm (5' 3 ) 04/24/2024 2:12 PM EST Body Mass Index 25.51 04/24/2024 2:12 PM EST Plan of Treatment Health Maintenance Due Date Last Done Comments CT Colonography 1955 Colonoscopy 1955 FIT 1955 FOBT 1955 Sigmoidoscopy 1955 Mammogram 08/18/2019 08/17/2018 Influenza Vaccine (#1) 2025 3, 03/16/2022, 04/11/2021, Additional history exists Colorectal Cancer Screening 02/17/2027 FIT-DNA 02/17/2027 02/18/2024, 08/29/2018 Pneumococcal Vaccine: 65+ Years Completed 3, 06/26/2015 Insurance [employer] MEDICARE ADVANTAGE Care Teams Brokerage Branch Manager Relationship Specialty Start Date End Date Ivelisse Georges MD PCP - General Family Medicine 03/30/24
--- NOTE | 2024-12-11 11:33 | ED_ITS ---
HPI HPI - General Adult General Chief complaint: Extremity Injury, Lower Stated complaint: FALL; R ANKLE PAIN/INJURY Time Seen by Provider: 12/11/24 11:20 Source: patient Mode of arrival: Wheelchair History of Present Illness HPI narrative: 68-year-old female presents for pain to her right ankle. She fell playing pickle ball and injured it. She points to the lateral malleolus. She has been able to ambulate. No pain in the foot or knee. Related Data Previous Rx's ?Medication ?Instructions ?Recorded acetaminophen 300 mg-codeine 30 mg 1 tab PO Q6H PRN pa in #20 tabs 12/11/24 tablet Allergies Allergy/AdvReac Type Severity Reaction Status Date / Time No Known Drug Allergies Allergy Verified 12/11/24 11:25 Opioid HPI Opioid Management Most Recent Opioid Data: Last Pain Scale 1 Today, 11:31 Review of Systems ROS Narrative A ten point review of systems is negative except as noted above. PFSH PFSH Social History Little interest or pleasure in doing things: not at all Feeling down, depressed, or hopeless: not at all Exam Narrative Exam Narrative: Nurses note and vital signs reviewed and patient is not hypoxic. General: The patient appears well and in no apparent distress. Patient is resting comfortably on cart. Skin: Warm, dry, no pallor noted. There is no rash noted. Head: Normocephalic, atraumatic Eye: Normal conjunctiva, no drainage Ears, Nose, Mouth, and Throat: oral mucosa is moist. Nares patent. Cardiovascular: Regular Rate and Rhythm Respiratory: Patient is in no distress, no accessory muscle use, lungs are clear to auscultation, no wheezing, rales or rhonchi Back: non-tender GI: Nontender Musculoskeletal: There is swelling over the right lateral malleolus. Skin intact. No tenderness in the foot or knee. Neurological: A&O, normal speech Psychiatric: Cooperative Constitutional Vital Signs, click to edit/add: Last Vital Signs Temp 98.5 F 12/11/24 11:25 Pulse 69 12/11/24 11:25 Resp 16 12/11/24 11:25 BP 145/89 H 12/11/24 11:25 Pulse Ox 100 12/11/24 11:25 O2 Del Method Room Air 12/11/24 11:25 Course Vital Signs Vital signs: Vital Signs Temperature 98.5 F 12/11/24 11:25 Pulse Rate 69 12/11/24 11:25 Respiratory Rate 16 12/11/24 11:25 Blood Pressure 145/89 H 12/11/24 11:25 Pulse Oximetry 100 12/11/24 11:25 Oxygen Delivery Method Room Air 12/11/24 11:25 Temperature 98.5 F 12/11/24 11:25 Pulse Rate 69 12/11/24 11:25 Respiratory Rate 16 12/11/24 11:25 Blood Pressure 145/89 H 12/11/24 11:25 Pulse Oximetry 100 12/11/24 11:25 Oxygen Delivery Method Room Air 12/11/24 11:25 Medical Decision Making MDM Narrative Medical decision making narrative: Right ankle fracture is identified, lateral malleolus. Short leg splint applied by me, application checked by me and found to be appropriate, she is neurovascularly intact. She is prescribed Tylenol 3. We spoke about crutches versus walker and she feels that she can utilize the crutches and that is her strong preference. I am comfortable with that decision. She will follow-up with orthopedics. Treatment diagnosis and follow-up were discussed with the patient. Differential Diagnosis Differential Diagnosis: Sprain, fracture Imaging Data Right ankle x-ray: Radiologist's impression: ITS Impressions Ankle X-Ray 12/11/24 11:31 IMPRESSION: FRACTURE AT THE DISTAL FIBULA Impression dictated by: Fouzia Palafox M.D. 12/11/2024 12:31 PM Dictation Location: [place] [address] Electronically authenticated by: [id number] Y Date: 12/11/2024 12:31 Discharge Plan Discharge Chief Complaint: Extremity Injury, Lower Clinical Impression: Ankle fracture, right Patient Disposition: Home, Self-Care Time of Disposition Decision: 13:14 Condition: Good Mode of Transportation: Private Vehicle Prescriptions / Home Meds: New acetaminophen-codeine 300-30 mg tablet 1 tab PO Q6H PRN (Reason: pain) Qty: 20 0RF Print Language: Peruvian Instructions: Ankle Fracture (ED) Referrals: Ivelisse Georges MD [Primary Care Provider, Family Practice] - 1 week Jimbo Davenport MD [Physician, Orthopedics] - 1 week
== END 2024-12-11 13:37 | disposition home or self-care (01) ==
PROVIDERS: Emergency Provider Emergency Medicine; PCP Family Medicine
DX: S82.61XA Displaced fracture of lateral malleolus of right fibula, initial encounter for closed fracture (principal); W18.39XA Other fall on same level, initial encounter; Y93.89 Activity, other specified
CPT/HCPCS: 29515; 73610; 99283

== ENCOUNTER 2025-02-06 09:17 | Outpatient (OUT) | payer MEDICARE, SELFPAY ==
--- OUTSIDE RECORDS SUMMARY | 2025-02-06 09:23 | XMS_ITS | CCD ---
Author Organization [facility] Care Team Providers Care Tourist Information Assistant Name Role Phone DR IVELISSE SCHWARZ Primary Care Unavailable KARISHMA, DR IVELISSE Sr Admitting Unavailable KARISHMA, DR IVELISSE Sr Attending Unavailable KARISHMA, DR IVELISSE Sr Consulting Unavailable KARISHMA, DR IVELISSE Sr Primary Care Unavailable KARISHMA, DR IVELISSE Sr Admitting Unavailable KARISHMA, DR IVELISSE Sr Attending Unavailable SCHERTZ, DR KEN Vaughn Consulting Unavailable KARISHMA, DR IVELISSE Sr Consulting Unavailable Ivelisse Schwarz Unavailable Ivelisse Schwarz MD Primary Care Provider [phone] CHIDI PICKETT Attending Unavailable Ivelisse Schwarz MD Attending Provider Jimbo Davenport MD Attending Provider [phone] Ivelisse Schwarz MD Primary Care Provider Ivelisse Schwarz Admitting Unavailable Ivelisse Schwarz Attending Unavailable Ivelisse Schwarz Primary Care Unavailable Jimbo Davenport II Admitting UnavailJimbo Iqbal II Attending Ivelisse Moss Primary Care Unavailable Jimbo Davenport II Admitting UnavailJimbo Iqbal II Attending Unavailpeggy sr Allergies Allergy Classification Reported Allergen(s) Allergy Type Date of Onset Reaction(s) Facility (3 sources) patient allergy list reviewed by nurse or physicia Propensity to adverse reactions 9 Comment:Done [facility] Other Medications Current Medications Medication Drug Class(es) Dates Sig (Normalized) Sig (Original) Wkjpyki-Ygnhcwhjgl-Gdcg min D (CALCIUM GUMMIES PO) (2 sources) [...] (3 sources) Hyperlipidemia; Translations: [Hyperlipidemia, unspecified] Chronic Fracture of lower limb (11 sources) Displaced fracture of lateral malleolus of right fibula, initial encounter for closed fracture; Translations: [Fracture of lateral malleolus of right fibula] Onset: 01-03-2025 12-13-2024 Episodic Mood disorders (1 source) Dysthymia; Translations: [...] fall; Translations: [History of falling] Episodic Other injuries and conditions due to external causes (1 source) Unspecified injury of right ankle, initial encounter; Translations: [Unspecified injury of right ankle, initial encounter] Onset: 12-13-2024 Episodic Other nutritional; endocrine; and metabolic disorders (1 source) Body mass index 25-29 - overweight; Translations: [Body mass index (BMI) 25.0-25.9, adult] Episodic Other screening for suspected conditions (not mental disorders or infectious disease) (20 sources) Encounter for screening mammogram for malignant neoplasm of breast; Translations: [Encounter for screening for malignant neoplasm of cervix] Onset: 01-14-2022 Episodic Residual codes; unclassified (2 sources) Postmenopausal state; Translations: [Asymptomatic menopausal state] Onset: 08-15-2018 Episodic Viral infection (1 source) Disease caused by 2019-nCoV; Translations: [COVID-19] Past or Other Problems Problem Classification Problem Date Documented Da te Episodic/Chronic Genitourinary symptoms and ill-defined conditions (13 sources) Dysuria; Translations: [Dysuria] Onset: 08-28-2024 Episodic Inflammation; infection of eye (except that caused [...] Test Name Value Interpretation Reference Range Facility X-ray reportOrdered By: Tre Fields on 01-03-2025 Study report [facility] [address] [place] [address] XRay Report Signed Patient: Nathalie Richey MR#: [id number] : 1955 Acct:[id number] Age/Sex: 69 / F ADM Date: 5 Loc: [facility] Room: Type: [facility] Attending Dr: Jimbo Davenport II, MD Copies to: Jimbo Davenport MD~ Ordering Provider: Jimbo Davenport MD Date of Service: 01/03/25 XR/XR ankle RT min 3V*: S82.61XA - Displaced fractureof lateral malleolus of rig... 3 views right ankle INDICATION: Fibular fracture COMPARISON: 12/13/2024 FINDINGS: Stable alignment distal fibular fracture. Talar dome is intact. Tibial intact. XR/XR ankle RT min 3V* IMPRESSION: Stable appearance of the distal fibular fracture. Impression dictated by: Babak Fields M.D. 01/03/2025 3:34 PM Dictation Location: RADIO-PC-29 Transcribed By: ETELVINA 01/03/25 153 Dictated By: Babak Fields MD 01/03/25 153 Signed By: 01/03/25 1534 [facility] Work Phone: XR ankle RT min 3V*on 2024 XR ankle RT min 3V* [facility] [address] [place] [address] XRay Report Signed Patient: Nathalie Richey MR#: [id number] : 1955 Acct:[id number] Age/Sex: 69 / F ADM Date: 01/03/25 Loc: [facility] Room: Type: [facility] Attending Dr: Jimbo Davenport II, MD Copies to: Jimbo Davenport MD Ordering Provider: Jimbo Davenport MD Date of Service: 01/03/25 XR/XR ankle RT min 3V*: S82.61XA - Displaced fracture of lateral malleolus of rig... 3 views right ankle INDICATION: Fibular fracture COMPARISON: 12/13/2024 FINDINGS: Stable alignment distal fibular fracture. Talar dome is intact. Tibial intact. XR/XR ankle RT min 3V* IMPRESSION: Stable appearance of the distal fibular fracture. Impression dictated by: Babak Fields M.D. 01/03/2025 3:34 PM Dictation Location: RADIO-PC-29 Transcribed By: ETELVINA 01/03/25 153 Dictated By: Babak Fields MD 01/03/251531 Signed By: 01/03/25 1534 Normal [facility] X-ray reportOrdered By: Junaid Royal on 12-13-2024 Study report [facility] [address] [place] [address] XRay Report Signed Patient: Nathalie Richey MR#: [id number] : 1955 Acct:[id number] Age/Sex: 68 / F ADM Date: Loc: [facility] Room: Type: [facility] Attending Dr: Jimbo Davenport II, MD Copies to: Jimbo Davenport MD~ Ordering Provider: Jimbo Davenport MD Date of Service: 12/13/24 XR/XR tibia fibula RT 2V*: S99.911A - Unspecified injury of right ankle, initial enc... XR tibia fibula RT 2V* 12/13/2024 2:51 PM SIGNS AND SYMPTOMS: Status post right distal fibular fracture, follow-up PROTOCOL: Frontal and lateral radiograph of the right tibia and fibula COMPARISON: 12/03/2024 FINDINGS: There is an obliquely oriented fracture of the lateral malleolus similar to the prior exam. There is soft tissue swelling along the lateral aspect of the tibiaand fibula are otherwise intact. XR/XR tibia fibula RT 2V* IMPRESSION: There is an obliquely oriented fracture of the lateral malleolus similar to the prior exam. No additional fractures. Impression dictated by: Junaid Royal M.D. 12/13/2024 8:23 PM Dictation Location: [place] [address] Transcribed By: [facility] 12/13/242022 Dictated By: Junaid Royal II, MD 12/13/242020 Signed By: 12/13/242022 [facility] Work Phone: Study report [facility] [address] [place] [address] XRay Report Signed Patient: Nathalie Richey MR#: [id number] : 1955 Acct:[id number] Age/Sex: 68 / F ADM Date: 5 Loc: [facility] Room: Type: REG CLI Attending Dr: Jimbo Davenport II, MD Copies to: Jimbo Davenport MD~ Ordering Provider: Jimbo Davenport MD Date of Service: 12/13/24 XR/XR ankle RT min 3V*: S99.911A - Unspecified injuryof right ankle, initial enc... XR ankle RT min 3V* 12/13/2024 2:51 PM SIGNS AND SYMPTOMS: Right distal fibular fracture, follow-up PROTOCOL: Frontal, lateral, and oblique radiographs of the right ankle COMPARISON: 12/11/2024 FINDINGS: There is an obliquely oriented mildly comminuted fracture of the lateral malleolus without change in alignment or significant interval healing. The ankle mortise is preserved. There is hardware fixation of the first metatarsal. XR/XR ankle RT min 3V* IMPRESSION: There is an obliquely oriented mildly comminuted fracture of the lateral malleolus without change in alignment or significant interval healing. Impression dictated by: Junaid Royal M.D. 12/13/2024 7:55 PM Dictation Location: [place] [address] Transcribed By: [facility] 12/13/241954 Dictated By: Junaid Royal II, MD 12/13/241952 Signed By: 12/13/241954 [facility] Work Phone: XR ankle RT min 3V*on 2024 XR ankle RT min 3V* [facility] [address] [place] [address] XRay Report Signed Patient: Nathalie Richey MR#: [id number] : 1955 Acct:[id number] Age/Sex: 68 / F ADM Date: 12/13/24 Loc: [facility] Room: Type: [facility] Attending Dr: Jimbo Davenport II, MD Copies to: Jimbo Davenport MD Ordering Provider: Jimbo Davenport MD Date of Service: 12/13/24 XR/XR ankle RT min 3V*: S99.911A - Unspecified injury of right ankle, initial enc... XR ankle RT min 3V* 12/13/2024 2:51 PM SIGNS AND SYMPTOMS: Right distal fibular fracture, follow-up PROTOCOL: Frontal, lateral, and oblique radiographs of the right ankle COMPARISON: 12/11/2024 FINDINGS: There is an obliquely oriented mildly comminuted fracture of the lateral malleolus without change in alignment or significant interval healing. The ankle mortise is preserved. There is hardware fixation of the first metatarsal. XR/XR ankle RT min 3V* IMPRESSION: There is an obliquely oriented mildly comminuted fracture of the lateral malleolus without change in alignment or significant interval healing. Impression dictated by: Junaid Royal M.D. 12/13/2024 7:55 PM Dictation Location: [place] [address] Transcribed By: [facility] 12/13/241954 Dictated By: Junaid oRyal II, MD 12/13/241952 Signed By: 12/13/241954 Normal [facility] XR tibia fibula RT 2V*on XR tibia fibula RT 2V* [facility] [address] [place] [address] XRay Report Signed Patient: Nathalie Richey MR#: [id number] : 1955 Acct:[id number] Age/Sex: 68 / F ADM Date: 12/13/24 Loc: [facility] [facility] Room: Type: [facility] Attending Dr: Jimbo Davenport II, MD Copies to: Jimbo Davenport MD Ordering Provider: Jimbo Davenport MD Date of Service: 12/13/24 XR/XR tibia fibula RT 2V*: S99.911A - Unspecified injury of right ankle, initial enc... XR tibia fibula RT 2V* 12/13/2024 2:51 PM SIGNS AND SYMPTOMS: Status post right distal fibular fracture, follow-up PROTOCOL: Frontal and lateral radiograph of the right tibia and fibula COMPARISON: 12/03/2024 FINDINGS: There is an obliquely oriented fracture of the lateral malleolus similar to the prior exam. There is soft tissue swelling along the lateral aspect of the tibia and fibula are otherwise intact. XR/XR tibia fibula RT 2V* IMPRESSION: There is an obliquely oriented fracture of the lateral malleolus similar to the prior exam. No additional fractures. Impression dictated by: Junaid Royal M.D. 12/13/2024 8:23 PM Dictation Location: [facility] Transcribed By: [facility] 12/13/242022 Dictated By: Junaid Royal II, MD 12/13/242020 Signed By: 12/13/242022 Normal [facility] Urine Cultureon 08-28-2024 Bacteria identified Cx Nom (U) 75,000 colonies/ml mixed bacterial skin contaminants 2 Days PERFORMED BY: [place] [address] PATHOLOGIST BARREL LEVELER BABS DICKENS M.D. Normal [facility] Comment on above: Performed By: #### C UU #### [place] [id number] [facility] Urinalysis - DIPSTICKon 09-0 Appearance (U) clear [employer] Other Bilirubin Ql (U) Negative [employer] Other Color (U) yellow [employer] Other Glucose Ql (U) Negative [employer] Other Hemoglobin Ql (U) large [employer] Other Ketones Ql (U) Negative [employer] Other Leukocyte esterase Test strip Ql (U) moderate [employer] Other Nitrite Ql (U) Negative [employer] Other pH (U) 5.0 [pH] [employer] Other Protein Ql (U) Negative [employer] Other Specific gravity (U) [Rel density] 1.000 [employer] Other Urobilinogen (U) [Mass/Vol] normal [employer] Other Urinalysis - DIPSTICK [employer] Other MG MAMM SCREEN 3D KWAKU CADon 02-12-2022 MG MAMM SCREEN 3D KWAKU CAD Patient: NATHALIE RICHEY Exam Date: 02/12/2022 : 1955 Gender:F Ordering : DR IVELISSE SCHWARZ M.D. Admission #: [id number] Family : Order #: [id number] CLICK HERE TO VIEW EXAM RADIOLOGY REPORT [...] Treatments None Family Cancers None LOCATION: [facility] BREAST COMPOSITION: Scattered areas fibroglandular density. FINDINGS: [...] Gibbs MD on 02/13/2022 at 07:37 Normal [facility] Pap IG, rfx Aptima HPV, rfx 16/18,45on 01-18-2022 . . Normal [facility] Comment on above: Result Comment: Perf ormed at: WB Performed By: #### P APHR2A #### [facility] [address] [place] [address] [address] Shaheed Pearce DIAGNOSIS: Comment Normal [facility] Comment on above: Result Comment: NEGA TIVE FOR INTRAEPITHELIAL LESION OR MALIGNANCY. CELLULAR CHANGES ASSOCIATED WITH ATROPHY ARE PRESENT. Performed at: WB Performed By: #### P APHR2A #### [facility] [address] [place] [address] [address] Shaheed Pearce HPV Aptima Negative Normal Negative [facility] Comment on above: Result Comment: This nucleic acid amplification test detects fourteen high-risk HPV types (16,18,31,33,35,39,45,51,52,56,58,59,66,68) without differentiation. Performed at: =G Performed By: #### P APHR2A #### [facility] [address] [place] [address] [address] Shaheed Pearce Methodology: Comment Normal [facility] Comment on above: Result Comment: This liquid based ThinPrep(R) pap test was screened with the use of an image guided system. Performed at: WB Performed By: #### P APHR2A #### [facility] [address] [place] [address] [address] Shaheed Pearce Note: Comment Normal [facility] Comment on above: Result Comment: The [...] WB Performed By: #### P APHR2A #### [facility] [address] [place] [address] Dr. Shaheed Pearce Performed by: Comment Normal [facility] Comment on above: Result Comment: Van Zaldivar, Field Adjuster (ASCP) Performed at: WB Performed By: #### P APHR2A #### [facility] [address] [place] [address] Dr. Shaheed Pearce Specimen adequacy: Comment Normal [facility] Comment on above: Result Comment: Sati sfactory for evaluation. Endocervical component may not be distinguished in cases of atrophy. Performed at: WB Performed By: #### P APHR2A #### [facility] [address] [place] [address] Dr. Shaheed Pearce Coding Summary.on 02-25-2021 Coding Summary. [id number] Gh0bWw+PGhlYWQ+PE1FV EQsP13ndBJjnX8RN7qTN G5ECGPUSDCICE7AHK5vl GY3JTlpC7QtdeQg TngoaWZpYO19ARj1JSP4 hZbyVXwnxI6yfVZwX1b6 KxRaRN56eP00KDtrBMYa TkW7CvEsiyirpELy M5wzIcBsfPSqLkl+PHRh YmxlIHdpZHRoPScxMDAl VoGjmZeqEL3uXy8jFIGm LWNvbGxhcHNlOiBj l9pkWXWqOEpsQR0xrAfl Q7JyiRY1FQMwi1c6Ot78 dHI+TEEtOPM5aChuFOwc e530WzFng5kzYOH8 rEEfHYrlLMX5H59fs8N4 RPOdTSCuRFM3iKP2vU2w fNpddydzA3TjjWFrGlH4 GDD2sWRbkG1flIff slhjxU6vVpv+F52OZX7M SKIWKG4OUfe0A6KePjkz dHI+KS45VIUvMH03mROn zPPzg8ympUh3AvCk IZLiGYY0uKsrOXlpn8Jo AXJnS71niSYoj9T0GCPr lMmxnKMbGpQwsXG8oL3o GKuwwksie4ffxfbc Mylzj0tmdh14lN47C14w UIxyPINkPHF6ZZTxTXJp jItkox6hvY4rZl0+IDxj i7usz0wauQp3WqRa DAJinmCvbVjrMRS5v9Ee Tm86D3GjdOvid6KuMab5 ht57qQWfh3Y9fGD4LYeg YNGqnU6wKIkjNyP6 SSGtMqHedP89mHCyBLvm Mo0lmSmntSuySD5sERXv azvmTPXigC8uVYYrkYVu hXjnEE4hIVEkwvfz x615NzXaQLE2SVVbtXZe T2KwaF9lVnRsHYLkEPJt L1GrpEKnBGmzD414YDry BrM1GPIodwKzD1Dg JVBejKhsCbJ3z6H9Kr8M r4PoilavKIE2ACdaDRH2 EbQ3LoThBiR3S0FnWoy6 WMZesNulGO7dG5Ql EWSbpanmcywkvRV3NDMe QWGbfD06zGCrDAdqFr5k g2V3v261JQGcSAHqiL09 Xo3qbFhxYHXgsYPA zY8zsuykt9owygxjJvPb MSHmXGo0HOc1OSQttScn DmEzHKL7QfX6PNH3fICn lH0wdRltciyuuB5g Oyc+F60rlN4zZPN6VAH6 fdqgOTIwrlBnJR99CF66 S8DlBvakrOIohOR+PGRp wbKegDilTF1fGmSz f8gxh3CyMCkrF6PpHUOz TCjyArv8GMJzWHB7hIK7 dY9ySOCcJVrge1U1jJQ5 G1TmwiBrup1ix6gv BMExZEpnE42psNNom3H1 APWpiHD1GBDqgIxiOsGr zJ00Pzo+NKMgiYjen5Zy Aogvj0zow4opbAf6 IjMwJSIgdmFsaWduPSJ0 u5AmAp28A24nEXpzZHIw YDWqKUOzLLUvcTltyb1k vO0yEm3+PGNvbCB3 aBF5fP1dNEOaHxN5MOyv M394TlRztMQrRgknj1zu s3dyqAj0BpAwCUPvdqEp bCpvBWC3g1VpYw38 W57zZArpNJLvVWRaQHOn KLDaqOaysj2jqR6kSj1+ VL7zp0wvtb93sS73vLD+ KBJeCQK4oPovZCxj LILekQ8nILtfItQ9NWVm QoBaiH17aIFvYHwvJz4l oZuskVdyRG8oTTQioftc t058FmHaj6ctFCZq kJDsHAfvNWJ2T55zm5U6 UJRpVBQgGPO3fOA4qM6j bGlnbjogbGVmdDsgdmVy pVjkILdsPYvmM053 IHRvcDsnPlBhdGllbnQg GzBdYQa1X8XmCjb5UJOs bKlkQQ4lmTXxFYapLw5h cVsnvJyeEM8yVOVw ipkvi019XrWow3vcLLXw iURcXFejBFS5C46kg2L1 TSPcUSXtLRY1nQZ6cN1v bGlnbjogbGVmdDsg otApbWsnEHulCRnfI536 IHRvcDsnPkJpcnRoIERh nPX7UZ41ZF46fXQao8B8 fEV8Y0BtRZOahonz gdjkeQI9LPGdZHIqiX03 As3kgHbbZs3jIGPuXQP6 BIBeaWFzT5MpaJ1mJhJw FGUoVQFwN7RstQUi TWnsW800XHlxYsW2DXOa hdOcS0RrLWGfrGymKqZ5 t4L2Qy3UA5S8OK04SY01 zOOgp2Q4bLR4M8Ne PMWcgbmtwtfadRK9MWFn VBBroK89Hq7dzAuoTv1n HYKcPVI4PUYcvRUeZ1Ik nQ1yKzPzSVXlUTSi H6ZyyKUjIOkzE485XDwt GjX3ISWkwjTfH8NhDKFt aXfrZpL3u7X9Lu2FRDx8 FB47DU79aUWns9Q2 fLA6S8JeFOFctidczulp vZT5LUGhDQPzsK62Aw3y aWoiFw9uPLWeFQP8DVWw lWBqO7LewI6aAvJb XIWiWECrS9EyaGOlHZlk Y717HFbkBbX2TRCiorKf Q3BnBHQsjMwwVcI3g1P4 Tq9GIIFvZQ46PPU3 oRR6QF81HC53R1IjMeuq dGFibGU+PHRhYmxlIHdp ZHRoPScxMDAlJyBzdHls UP1qHt7nILPxERZp jWspkZOvMpOwb1lkQBDe YZckAU8ciRemS1BrbKH6 SQWnx6j1Mq15X81fD8Wv dXA+VIVtwMU9lBG3 wQ2wYkWqUeK0FKpxU642 SnTgwCTmYvmrk4rjn4xq vEe8JsT3OYVojoTxpNfl GXO8u0SfJr16V46r IHdpZHRoPSIxNSUiIHZh fRuwzv6scL2bKi0+PGNv kZT2aDA6yP8kUsEwIvB9 DMmiY413SoOjxBKe Lwyvn9ism2vkaDg3VdHg VBGwboIpbTkuICK1u2Ca Zd96K0PmmIojr7LnHzb3 ej54fSTub6J8gFU0 D6VrCOAyzsamqLLymJwu LU4hLBMasojoSAOhvC6r BHKiT1i3FqQrVsR2DVus G6AniuW9UUGecKFi TNgvRYN2M77io3A7KOVr GZKyYSM1zRI6jB5btZfo bjogbGVmdDsgdmVydGlj ASulSPjnO399QWSe oDmmLSXdvM8qNFXvmNHj uJbyMV5uAFWzjmjxKd5F B6kQMYaWYIWKHP5EMLla dGQ+HCBcPSL9gEto PGsmWZRdjQ8wCSMhH9e7 ImWvSxU1HIukA3GoXVGa hmlrMi99jY5iXzMtJdJ6 ZWuwJ4JujkB1PBHh kARvMHisJIG4X39li2X4 ZSToJFSgYFH6cZP0hB6i bGlnbjogbGVmdDsgdmVy vFcwUBxsJXeqL983 NIQilIioTkH9RnBpAhN7 WBA2T2BkMaq3ZBOsgOmz UN0ngKQaZRiuHj3ytZvk sApmEH1wIJLrofqb NIYssD5zILBdhQBjfQms UE0tQAYyzqqma895PlBj ONF9EKXjvAAhB7LltN8c ZsVeQENxMEUtR7Dg qKCrHYtdS924XBavTjS1 NFVafeTrG6BeKREuuImj NrP8y1A7Un44MaUVGQHv czwvdGQ+PHRkIHN0 vWgwKBlzBMGmhG4bTTCl Q0n5DbTiLtX4QJbxO8Kw YKXyokzxFl25mQ2qQsHk QkA3HTgsM8OzjaP5 OCJkjQScYYqsVRH1W93d x2U5IVYtTKHmERD4zXA4 nU0mdYlrbkwemEOkeEeq dmVydGljYWwtYWxp C559DJWcgXbyXmRqqWQd ZTwvdGQ+MFViFLT0kOon SLucHZKdcK3pGRVeV9x0 IrCiWjL7HLocW7Kc GGCderqoWo74nU2eTuKw UuB1MKdkA9PfsmW4YDLp lXVyQOdmFRU3X50jt4A6 LQQyGMHeJFY0sJS6 eC6prJiijilgqOWgwFob yzWivGtpPVguNMquP381 WUNfrLarGy32qCNhcIpt prX9U1IcQbnjdJZ+ QI37FKUqEL79pVQmvZCz k2uqzBg0IpQvROCxUTR0 gEgaXZsdn8TzPJZsN19y zEAsj8Q7OMMfoYtp xZPlCsVqhGC0tU0nYOwt ecilp7nfimtsUwmqa3yg xx64oH20R72lJXufZKNc PSIzMCUiIHZhbGln fk2pvB5mBp3+PGNvbCB3 mSC6xG4sFuCcHlF1TVit D117MkYldDYyCycyk8bg u2hpkAt8WaToIMSq teAzmMqvYUF1v5RjAf39 W34uCRsaLXMsREYxBJDk TDVviCtubi9toF1yGi4+ TZ4vc9myjh52dD62 dHI+VJLzEJB4fIfcDTnl LIUwaE1bSPvpOsB0FGKr WyHogU67lVOwGVbaIy9m mQnkmSuvSZ6gCMTg ewzkf258RcRjy1pbRHTc lRQtFWapECU3X68ak7D5 GYPgBOMdJUM9lLP7xP4s bGlnbjogbGVmdDsg nrJroCdoRXykGQpbB060 WGKbdNgdEoPceLMuH8xd wiDPOW8hMhjxcYX+PHRk JRZ0lYthUFezIYBm kO0bDYWjW3o1FfYgIdG0 BYzfX2LkyfO1RMEzwKFn AOKmtFQArK6frazla2ut cjogIzAwMDAwMDt0 GKx7PDIwtQsoSaVgNST8 ScZ7AAQ7rGOaaP6wwSdg arsnsR7oDmo+RklOOjwv dGQ+NOSoGKA3vVef ZMguJTFuyJ2gMELsZ5b0 OcNuGpY8PFkkW1RbaaU2 YGFyoKDgXYKhkSAIxP8c dknwk7yasmoyPwRq QTHmVKa1ABd3PVRysRtl FgWcEUU0IuF6BPL2oTCi iR5pqUcyhfqwpP1aCkr+ TVJOOjwvdGQ+PHRk YAL8dFnqTFdvHYZkfG7i RFEoG8m8ZkZiXeV3IDfj I5StwdO1MLYfhVOePLUp aLRKcU8ivqxlu7er ntbaLfXlOMFcFIr9AIx7 PCZajKiiBtKcVTB6CoV5 XJW5fBBeiQ1dnPtjyqmh rF7eCsw+AHS9IZW1 YW21AP66Y2GbExpvdUTw bGU+PHRhYmxlIHdpZHRo ACatYJJjFyYycRoiUG7x Cs9qJBWoPXCgrMiy cHNl (more content not included)... [facility] Coding Summary. [id number] Gh0bWw+PGhlYWQ+PE1FV AXtM21yyHZnuK3DN3iWX P7NUKGSJLZWTA7HKS3gd TV4SHnbC4MrgdWd JlatdACeZK82SQz9REJ1 mHseYJeflP9bxKCgU4b2 FtZyFX25sX44LEglGVVy CcQ1MsQfclqzdNWp Z2ahWyQduSEcHgc+PHRh YmxlIHdpZHRoPScxMDAl WbKezZmxFE5iRh0eWPIp LWNvbGxhcHNlOiBj q3sfYPWxVXoaQB9skJkm X2HogIO2QVHml6f5Dc78 dHI+HGOiSIJ2cRpyCQwf r439WoMhy9ljAJO4 eUVdNJgzVKJ3D28sj0Y4 NMKhPWXkHPZ4tSE2gO6r vFtxbtleK6JnlOKvBgQ4 OIX4dKTxqT7wvGhb gujhqR0wWvv+W43JDG7Y QJQXXB2MFfs2N0ShEvmx dHI+SD97WGKfUI33vOWm fAKla1nxlIs0ZyXk BGWbDFP9yVakFHhoe1Ah ASJkE43sdYZey8Q3JCKo kKmdxSOeXhRxmCV3zB1m ZVmmjawlf4tldkls Lgsus4uija38lU54X04f GMsaFTUgIYG0XKUnQKPo lAwset0egD4mZx8+IDxj u1hki3kjuCz2DwOl MSPexkXhiKfeNMQ5k5Mz Rd51F4ChmItun2XySkm3 zp43zXCbf7D8pGV1IWuu HIKffV6vBFedRuW0 PVXgRmLetL10lAWnXBxu Nm9goDjvgPbdVD1tFLBr paptGYCqbS2rQMEosXOz nKrzQA8mBPTclkoh i974QoYjZEQ8DNNnvFAk C8MyvW8nQgMbZZKbZHIv V2AlhYCeSDbjP285YFrz LdE2TFKucpGoD9Bx QXGlwMlzAvX2t6E3Jl4F m9VdqllkKXQ6YUtbMHE2 CaB3SuIyGuO7E2MsEoe5 YVSgsFwyUW5zI1Mj IFDugfurjkcieSS8ZOUo HGSutT82bZWaXGulNf1v n8R4f489NNPcLEPwgO54 As4ajZpzIVPzrUFT jE6luwena0lccdufCxHp WJIbUMb5LSg3FENemUsv YvAyXJJ8UaT1IXZ4rAGq aC9rbGvvugcxhI0f Oyc+L60gfP8hMGB9CZS6 gusiAFEnnzUtNK62HV44 K1DuHnjwuFBucCM+PGRp orGihJeoOB5wWtAp o8uyf0EqABeyI3ZsSJZb HYcuDax7FHYbKHN5cDN0 uK0mDGMqXWxue6D7eYG8 V0HnhlTkpu8me7sz SGOiEVdsQ19scDHen5T0 HMPnlIM7GBDigYsjVhCp nK88Ykm+XTIwzApyy4Em Emefw9ecd5psoAd4 IjMwJSIgdmFsaWduPSJ0 h1QnWy36W58dPGwgLORv XSVjXEXySQRwqIikjc3m vV1pNn6+PGNvbCB3 cZG5hT9aASLhQnQ9YSjz O539ZbIgcFVkUstyg1ns q5itmUa2LaCtTVCnzbUy dSgqTTY6u5KfKq73 L62aIXwlDBCwKPCcJTQn WXLyxUviyr9hjB5qQi5+ QJ5hd4stmm45fO02lPI+ UAMvKPY1qYkqOUgs WPJxeZ4mVOjnInP8TWQf SpWeeW51mYFkAOnbJp4f sMzbrYcvXP5pMLPwpcif v220SyIki4yiIMQz xWKoDYymEMW0D56df9R9 JPIoWQPlKOB7sWG6xQ7n bGlnbjogbGVmdDsgdmVy oGgnHIzbICngO938 IHRvcDsnPlBhdGllbnQg RyIxINk9I5DaMxp1ZZOp qYzhER1znVIqUJnrEh5d bMupaLcwJN6nLQHu bbvhh273TvPfo3xxZEIp uASsZSzzSGY8G58ip7S6 IGSsBOXoKGA8fJX5eO6p bGlnbjogbGVmdDsg yeHluDmzUNxnIGscC700 IHRvcDsnPkJpcnRoIERh vFA0ID30ZE33hOAgw8A4 sWJ6N1FyRBLzctxl yfnjgMU1HGAmWHWldF75 Yn7abGnqPx0wGVNgUNW1 DZYapIFiN7JrrI5yMrXp IBJbZHMmM3GfdOGa TEdwH926PGbbEaK2DAHr wfMrI5IzMTWycMfjDhF0 l9I6Wo5DU1C2LK67EV09 uSIob8S6eXR4J1Xs CFPjyvpfqlvftMW8QEXo CZYkwT78Ks8haUgyWa1n XBLmOMY4WLZqqLBvS8Ij uN4cSoViWWByLDUj U8LbwTJwGDsgQ642HBmc EnZ2WXQxlvMyL4FqOXJu xIhxPnM9x3A8Dx1GLIj2 TY84AM15kKZyq5X5 hUK4G9HtNVErrysxzvex pBC1VPVaVHKfhC62Vh8r fOauFz1fUURyBXX5MZRm rGXiW3XzoW8uCsUy TWNyWUJqB4GnaLLpPQpp V715EDqjVtV5PCBzgyKr T4YzTFNzwUovCnD7u7S9 Sx2PHFPuDF70DRP0 aVI6XN58ZO10K8FjIrdl dGFibGU+PHRhYmxlIHdp ZHRoPScxMDAlJyBzdHls OR1zWu2jPLJbNZOs aDbgqIRpYiMbk7tlVRQq MGdvFN8fqKdqM8XnvKY4 XCSgh5p4Ga50O34hB1Ro dXA+QZIobFC3nFF6 xD5cRzLkInU0YWyrT261 EdLhwKLaRryoi8llx5vw nQo5JcS6BGDsmjOfwEwy BGH8o4MfUv25N12w IHdpZHRoPSIxNSUiIHZh jFirau8mzK6pZn7+PGNv vUJ2tNO1fN8oJoTrCcD3 ZZvgP167SrWctBRt Fdago1gbo0vjlNb7FuFo CFIthvOdmUqqCYF4c2Ti Sj88G3SgfAqcv4ZmFdw5 vm33dCPbs7S5lPL0 W5UuEXIdlndjpAIgzYwd VK7kQJAscxwbTZCpvV2g TWWkW6x2DnNhWkE6RIgq Y2OgxoO7LDDxeLEj MKkbBGP1L14bz3U7FOGm WXAjGWD6rNK3dB8awSlk bjogbGVmdDsgdmVydGlj YEapETnqJ232VLLb mEoeMDBlcN5sAYGbxZKh tDfjFU4eUWTubuppPs9B E0xDEEbOZLMJNW1FFWid dGQ+HZCxDKK8hHad XAeiAKWgkO8fZZYwZ1n3 SwUnSxS7MGfnY4XqKPPa tymqXv71cE7vTkZtQhS9 RJyyL4SvkuE0RRHb uWOdVLhmFOU4J45hz0T2 DOCmLNUuGKX5pGH6nB8s bGlnbjogbGVmdDsgdmVy aKzhEUqpNHycJ127 PXTbdVeoNzK9KpJeEaZ0 XBK1M1CjAxu7TYAjhIxf JK7niJMnGOunKf2kzPew jPyaRO0lMVNfiydc OKCakM3rQEUmrKUwfEdu NV0lIILdrjgkm912DoWw ORF0TTRznMTtT9GnuQ5i BbRkVBXdTVSrP3Zt cXHfLIjxQ856FSofTnN1 PTDeleJpR6GiYRQpkDdg HyB3d2F7Wi68GTBIXURg czwvdGQ+PHRkIHN0 tWglYKdrQQGnxL5yXMNq C1y4SfFcFmU9VJciV1Lo BNZmpvqhAn10zV1tKbNw KmD6WHigJ5ViibG7 OPNduUZkHPxpFCR4U66d f2W6PXEoEIObWUX8kRR0 yI8qmFtzdkuhxNDcnEoc dmVydGljYWwtYWxp L246WUHllWvkDaGfoXBe ZTwvdGQ+OXUiHQR5xEmf DQktNNYgbF4xCTMiC5i3 ShRuSlQ4ZMfpN8Rp AXVkwnldBl53yO0cNsCc AjO1VOgiE0IsypV1KHVf tHYnVGlzQTW5C74il6A8 ANDeWWOqMEM1bBN6 pF1nhXttmdjhuRLauLpj mcJceJsxNZfmDSkrX493 ZZWflIgdTb69iMHicQfo laE1M3IyEhhajUC+ SU56YHQbPG17tKJhaDOd u4ysyVe7JvXnKGKaIRR9 zFyrHMgog7HaFYTtG64s zEVrf0O0MJTzwQxq jIMeWdEfgMS8gK7fSCyw djdpg8jfxgxfTrsue9ul in32oA78C75kYKdlBASy PSIzMCUiIHZhbGln ip2tqJ6lDn4+PGNvbCB3 kJH9kR5mPnQsWvE0GHmx Q704VgJuwMEvLvpkx9lw r9bmmCh4XqCiVMFx suOgsElwMDM7d2TfZi69 D15xCPydYDLmGAItXLGv FDUdiFedfo8hnO2fJq6+ VU7ra1djpd92yR28 dHI+FMObPDE7pHinUTgs ESJwnG8rKIweUjM9OQUy JhLrvP97sBFuWPjpAn0k tLxioQcsMR3oNBQr iwfwx752WxPxc7zqVPYu wMAbRAdnBCF2I30fh0N4 JILgGZCqFNJ7cSJ6nD1m bGlnbjogbGVmdDsg wtAjrKigGMztSFagH360 ICCsvDmpRiVqkCYgS6oh naNFOP5lYjyrwVV+PHRk SSY7mVqtNWgaEODi jX1iDNScH9u5DsVlZfR7 ACwmU7IqzwO5IAMmiPZk KGNldLYKvA3pzwjky8cs cjogIzAwMDAwMDt0 KEn9FGWyfFxbCrTdRUI3 JkY1GLR6dZFfvE8irDzw sbrtjG9gMuq+RklOOjwv dGQ+JKEoVSG4yYrp MOocBAHgeL9rMVXyW9h5 ErLlFbO5PMdxC4VoalD8 GHZgwCNiZOZwgDCErN4c nzgoq6tlixduZyGp MJWnNUp3MCq8GNPyfQlu BfItDGU9YdZ8PIK9hEOg cP4wfQrzuucpbW9iFgw+ TVJOOjwvdGQ+PHRk XTS1cKldJQzoFQOhoI5k PRWrA0o2CjCuZkR5CPfe T6AdwoK6OYIwwWGkBKAc rNQApM0kmetnt6wz fgkyYtQmFDUyPEb6GYo5 IXQcnFexVqSyPZV8VpH0 JNP6vCYtfS6mgTlhkckv aP5oQri+EVD2DBK1 QS24WG44F5WlVhgjbBWt bGU+PHRhYmxlIHdpZHRo NAgaVXSlNrVlwHzgXN2m Oa7tFXZgICMcuHxc cHNl (more content not included)... Normal [facility] Physician Orderon 02-21-2021 Physician Order [id number] #1.00CD:127 Normal [facility] Auto Diffon 11-25-2020 Basophils/100 WBC (Bld) 0.8 % Normal 0.0-2.0 [facility] Comment on above: Order Comment: Order Added by Discern Expert. Performed By: #### 2 942498, [id number], 9003485, 0934795, 3250244 #### [facility] Laboratory [address] [place] [address] Basophils/Leukocyt es Auto (Bld) [Pure # fraction] 0.1 E9/L Normal 0.0-0.2 [facility] Comment on above: Order Comment: Order Added by Discern Expert. Performed By: #### 2 636445, 68163410, 9645906, 7515477, 7189420 #### [facility] Laboratory [address] [place] [address] Eosinophils/100 WBC (Bld) 1.3 % Normal 0.0-8.0 [facility] Comment on above: Order Comment: Order Added by Discern Expert. Performed By: #### 2 618375, 66997922, 0024037, 3497472, 5600937 #### [facility] Laboratory [address] [place] [address] Eosinophils/Leukoc ytes Auto (Bld) [Pure # fraction] 0.1 E9/L Normal 0.0-0.5 [facility] Comment on above: Order Comment: Order Added by Discern Expert. Performed By: #### 2 578254, 51847408, 3217455, 8745503, 5996861 #### [facility] Laboratory [address] [place] [address] Lymphocytes/100 WBC (Bld) 42.5 % Normal 14.0-50.0 [facility] Comment on above: Order Comment: Order Added by Discern Expert. Performed By: #### 2 727712, 52352244, 3643498, 6449858, 8874532 #### [facility] Laboratory [address] [place] [address] Lymphocytes/Leukoc ytes Auto (Bld) [Pure # fraction] 2.8 E9/L Normal 1.0-4.0 [facility] Comment on above: Order Comment: Order Added by Discern Expert. Performed By: #### 2 956022, 33335097, 1319442, 5679377, 8852713 #### [facility] Laboratory [address] [place] [address] Monocytes/100 WBC (Bld) 5.9 % Normal 4.0-14.0 [facility] Comment on above: Order Comment: Order Added by Cayla Expert. Performed By: #### 2 417708, 54385622, 9214180, 4500055, 1220815 #### [facility] Laboratory [address] [place] [address] Monocytes/Leukocyt es Auto (Bld) [Pure # fraction] 0.4 E9/L Normal 0.2-1.0 [facility] Comment on above: Order Comment: Order Added by Discern Expert. Performed By: #### 2 880129, 36358851, 7539040, 5637256, 1849355 #### [facility] [address] [place] [address] Neutrophils/100 WBC (Bld) 49.5 % Normal 36.0-75.0 [facility] Comment on above: Order Comment: Order Added by Discern Expert. Performed By: #### 2 079390, 94472658, 1112059, 3695886, 6500623 #### [facility] [address] [place] [address] Neutrophils/Leukoc ytes Auto (Bld) [Pure # fraction] 3.2 E9/L Normal 2.0-7.5 [facility] Comment on above: Order Comment: Order Added by Discern Expert. Performed By: #### 2 782162, 54918453, 9312726, 0752360, 0719717 #### [facility] [address] [place] [address] CBC w/ Auto Diffon Erythrocyte distribution width (RBC) [Ratio] 14.1 % Normal 10.9-14.2 [facility] Comment on above: Performed By: #### 2 322663, 21845889, 2694810, 8730966, 7031047 #### [facility] Laboratory [address] [place] [address] Hematocrit (Bld) [Volume fraction] 37.0 % Normal 34.0-46.0 [facility] Comment on above: Performed By: #### 2 472065, 05148870, 4209606, 7840885, 8647336 #### [facility] Laboratory [address] [place] [address] Hemoglobin (Bld) [Mass/Vol] 12.1 g/dL Normal 12.0-16.0 [facility] Comment on above: Performed By: #### 2 470880, 55243644, 0377204, 3805524, 6916839 #### [facility] Laboratory [address] [place] [address] MCH (RBC) [Entitic mass] 27.8 pg Normal 27.0-34.0 [facility] Comment on above: Performed By: #### 2 224036, 30618658, 4931533, 1148454, 3281657 #### [facility] Laboratory [address] [place] [address] MCHC (RBC) [Mass/Vol] 32.7 g/dL Normal 31.4-36.0 [facility] Comment on above: Performed By: #### 2 127508, 77036164, 0989247, 1989052, 6899528 #### [facility] Laboratory [address] [place] [address] MCV (RBC) [Entitic vol] 84.8 fL Normal 80.0-100.0 [facility] Comment on above: Performed By: #### 2 079655, 31560723, 5918568, 0901205, 8549622 #### [facility] [address] [place] [address] Platelet mean volume (Bld) [Entitic vol] 8.2 fL Normal 6.4-10.8 [facility] Comment on above: Performed By: #### 2 991489, 49908102, 8058331, 7415315, 8693059 #### [facility] Laboratory [address] [place] [address] Platelets (Bld) [#/Vol] 307.0 E9/L Normal 150.0-500.0 [facility] Comment on above: Performed By: #### 2 921756, 72314242, 0979688, 8497278, 0149604 #### [facility] Laboratory [address] [place], [place] [address] RBC (Bld) [#/Vol] 4.4 E12/L Normal 4.3-5.9 [facility] Comment on above: Performed By: #### 2 301387, 55681604, 8929636, 1900343, 2140766 #### [facility] [address] [place] [address] WBC corrected for nucl RBC Auto (Bld) [#/Vol] 6.5 E9/L Normal 4.0-11.0 [facility] Comment on above: Performed By: #### 2 733664, 43078520, 5115554, 0520420, 4973391 #### [facility] [address] [place] [address] CMPon 11-25-2020 Albumin [Mass/Vol] 4.4 g/dL Normal 3.3-5.0 [facility] Comment on above: Performed By: #### 2 513675, 05502369, 4614918, 8574564, 8781143 #### [facility] Laboratory [address] [place] [address] Albumin/Globulin (S) [Mass conc ratio] 1.5 Normal 1.1-2.2 [facility] Comment on above: Performed By: #### 2 928565, 39923197, 8719612, 9390156, 8534872 #### [facility] [address] [place] [address] ALP [Catalytic activity/Vol] 77 Int._Unit/L Normal 21-98 [facility] Comment on above: Performed By: #### 2 817007, 68314818, 2744398, 9182279, 2394879 #### [facility] Laboratory [address] [place] [address] ALT No additional P-5'-P [Catalytic activity/Vol] 23 Int._Unit/L Normal 6-46 [facility] Comment on above: Performed By: #### 2 517584, 35871134, 3111561, 6375209, 0987877 #### [facility] Laboratory [address] [place] [address] Anion gap [Moles/Vol] 13 mmol/L Normal 6-16 [facility] Comment on above: Performed By: #### 2 503641, 74000452, 1889774, 9895575, 0294568 #### [facility] Laboratory [address] [place] [address] AST [Catalytic activity/Vol] 26 Int._Unit/L Normal 5-43 [facility] Comment on above: Performed By: #### 2 537512, 39934495, 8046914, 2904775, 1905061 #### [facility] Laboratory [address] [place] [address] Bilirubin [Mass/Vol] 0.4 mg/dL Normal 0.0-1.1 [facility] Comment on above: Performed By: #### 2 558495, 69400422, 2308606, 4591371, 2732591 #### [facility] Laboratory [address] [place] [address] Calcium [Mass/Vol] 9.2 mg/dL Normal 8.9-11.1 [facility] Comment on above: Performed By: #### 2 192867, 60169278, 3078214, 3660163, 0066628 #### [facility] [address] [place] [address] Chloride [Moles/Vol] 103 mmol/L Normal 101-111 [facility] Comment on above: Performed By: #### 2 315735, 36881870, 7506879, 8126142, 5309486 #### [facility] [address] [place] [address] CO2 [Moles/Vol] 24 mmol/L Normal 21-31 [facility] Comment on above: Performed By: #### 2 609489, 01503026, 6495319, 2500494, 5315000 #### [facility] [address] [place] [address] Creatinine [Mass/Vol] 0.9 mg/dL Normal 0.5-1.3 [facility] Comment on above: Performed By: #### 2 204840, 89690355, 4689982, 6259455, 3196107 #### [facility] Laboratory [address] [place] [address] Globulin (S) [Mass/Vol] 3.0 g/dL Normal 1.4-4.0 [facility] Comment on above: Performed By: #### 2 744827, 72010674, 9566241, 9424708, 4561501 #### [facility] [address] [place] [address] Glucose [Mass/Vol] 101 mg/dL Normal 55-199 [facility] Comment on above: Result Comment: If t his glucose result represents a fasting glucose, interpretation should refer to the following reference range: 55-99 mg/dL Performed By: #### 2 578198, 79197605, 7047281, 1501266, 4819033 #### [facility] Laboratory [address] [place] [address] Potassium [Moles/Vol] 3.8 mmol/L Normal 3.5-5.3 [facility] Comment on above: Performed By: #### 2 724048, 48356792, 8731498, 7111922, 4678499 #### [facility] Laboratory [address] [place] [address] Protein [Mass/Vol] 7.4 g/dL Normal 6.0-7.8 [facility] Comment on above: Performed By: #### 2 648395, 28870808, 7443022, 5025158, 0906556 #### [facility] [address] [place] [address] Sodium [Moles/Vol] 136 mmol/L Normal 135-145 [facility] Comment on above: Performed By: #### 2 791928, 68190961, 5596736, 1615569, 5952184 #### [facility] [address] [place] [address] Urea nitrogen [Mass/Vol] 18 mg/dL Normal 5-21 [facility] Comment on above: Performed By: #### 2 261670, 22177503, 9020564, 5406583, 3316024 #### [facility] [address] [place] [address] Urea nitrogen/Creatinin e [Mass ratio] 20 No Units Normal 10-20 [facility] Comment on above: Performed By: #### 2 884930, 34652231, 8378326, 7618800, 4726660 #### [facility] Laboratory [address] [place] [address] Consent for Treatmenton 10-30 Consent for Treatment [id number] #1.00CD:127 Normal [facility] Lipid Panelon 11-25-2020 Cholesterol [Mass/Vol] 282 mg/dL High 120-200 [facility] Comment on above: Performed By: #### 2 564772, 48244954, 3730419, 4463308, 5435104 #### [facility] Laboratory [address] [place] [address] Cholesterol in HDL [Mass/Vol] 111 mg/dL Invalid Interpretation Code [facility] Comment on above: Result Comment: HDL > or equal to 60 mg/dL: Low cardiovascular risk HDL < 40 mg/dL : High cardiovascular risk Performed By: #### 2 353699, 64081918, 0519511, 1361585, 9411956 #### [facility] Laboratory [address] [place] [address] Cholesterol in LDL [Mass/Vol] 120 mg/dL Normal <=129 [facility] Comment on above: Performed By: #### 2 696000, 74553860, 4443939, 8519887, 8630082 #### [facility] Laboratory [address] [place] [address] Cholesterol in VLDL [Mass/Vol] 21 mg/dL Normal 7-40 [facility] Comment on above: Performed By: #### 2 692355, 77885472, 6315720, 5575975, 3581180 #### [facility] Laboratory [address] [place] [address] Triglyceride [Mass/Vol] 107 mg/dL Normal <=149 [facility] Comment on above: Performed By: #### 2 818043, 29754679, 1422518, 1780968, 3113274 #### [facility] Laboratory [address] [place] [address] Physician Orderon 11-25-2020 Physician Order [id number]#1.00CD:127 Normal [facility] eGFRon 11-25-2020 GFR/1.73 sq M.predicted among blacks MDRD (S/P/Bld) [Vol rate/Area] mL/min/{1.73_m2} Normal >=59 [facility] Comment on above: Order Comment: Order added by Discern Expert. Result Comment: eGFR is race adjusted. AA=. Performed By: #### 2 471262, 61975255, 5565645, 0038634, 0529412 #### [facility] Laboratory [address] [place] [address] GFR/1.73 sq M.predicted among non-blacks MDRD (S/P/Bld) [Vol rate/Area] mL/min/{1.73_m2} Normal >=59 [facility] Comment on above: Order Comment: Order added by Discern Expert. Result Comment: [employer] cathryn kidney disease could be indicated at eGFR's of less than 60 mL/min/1.73m2. Kidney failure is indicated at less than 15 mL/min/1.73m2. Performed By: #### 2 171247, 26678082, 8316575, 9422602, 0964589 #### [facility] Laboratory [address] [place] [address] Vital Signs Date Time Vital Sign Value Performing Clinician Светланаi kaylynny 12-13-2024 15:07-0400 Body height 160.02 cm Ivelisse Schwarz MD Work Phone: [facility] 12-13-2024 15:07-0400 Body mass index (BMI) [Ratio] 25.7 kg/m2 Ivelisse Schwarz MD Work Phone: [facility] 12-13-2024 15:07-0400 Body weight 65.77 kg Ivelisse Schwarz MD Work Phone: [facility] 12-13-2024 15:07-0400 Diastolic blood pressure 74 mm[Hg] Ivelisse Schwarz MD Work Phone: [facility] 12-13-2024 15:07-0400 Systolic blood pressure 116 mm[Hg] Ivelsise Schwarz MD Work Phone: [facility] 04-24-2024 14:12-0500 Body height 160 cm Chidi Pickett DPM Work Phone: [facility] 04-24-2024 14:12-0500 Body mass index (BMI) [Ratio] 25.51 kg/m2 Chidi Pickett DPM Work Phone: [facility] 04-24-2024 14:12-0500 Body weight 65.32 kg Chidi Pickett DPM Work Phone: [facility] Healthcare Encounters Encounter Date Encounter Type Care Provider Facility Start: 01-03-2025 End: 01-03-2025 ambulatory Ivelisse Schwarz MD Work Phone: [facility] Work Phone: Start: 01-03-2025 End: 01-03-2025 Patient encounter procedure Jimbo Aceves MD -[facility] Work Phone: Start: 12-13-2024 End: 12-13-2024 ambulatory Ivelisse Schwarz MD Work Phone: [facility] Work Phone: Start: 12-13-2024 End: 12-13-2024 Patient encounter procedure Jimbo Aceves MD -[facility] Work Phone: Start: 08-28-2024 End: 08-28-2024 Departed Referred Ivelisse Schwarz MD Work Phone: [facility] [place] Work Phone: Start: 08-28-2024 Registered Referred Ivelisse costello MD Work Phone: [facility] [place] Work Phone: Start: 08-28-2024 End: 08-28-2024 ambulatory Ivelisse Schwarz [facility] Work Phone: Start: 08-28-2024 End: 08-28-2024 Patient encounter procedure Ivelisse Schwarz MD Work Phone: [facility] Work Phone: Start: 04-24-2024 End: 04-24-2024 Office outpatient new 30 minutes Chidi Pickett DPM Work Phone: [facility] Comment on above: Plantar fasciitis (P rimary Dx); Equinus contracture of right ankle; Equinus contracture of left ankle Start: 04-24-2024 End: 04-24-2024 ambulatory CHIDI PICKETT Not Available Start: 04-24-2024 End: 04-24-2024 Bamboo flowsheet Chidi Pickett DPM Work Phone: [facility] Start: 04-24-2024 End: 04-24-2024 Bamboo flowsheet Chidi Lomeli Brodie DPM Work Phone: [facility] Start: 04-24-2024 Patient encounter procedure Ivelisse Schwarz MD Work Phone: [facility] Start: 07-05-2023 End: 07-05-2023 ambulatory Ivelisse Schwarz Other [facility] Other Start: 07-05-2023 Telephone encounter Ivelisse Schwarz [facility] Start: 05-11-2023 End: 05-11-2023 ambulatory Ivelisse Schwarz Other [facility] Other Start: 05-11-2023 Telephone encounter Ivelisse Schwarz [facility] Start: 01-29-2023 End: 01-29-2023 ambulatory Ivelisse Schwarz Other [facility] Other Start: 01-29-2023 Nursing evaluation o f patient and report Ivelisse Schwarz [facility] Start: 02-12-2022 End: 02-13-[address] IVELISSE SCHWARZ Facility:[facility] Start: 01-14-2022 Adult health examination Ivelisse Schwarz Other [facility] Other Start: 01-14-2022 End: 01-14-[address] IVELISSE SCHWARZ Facility:[facility] Procedures Date Procedure Procedure Detail Performing Clinician Start: 01-03-2025 X-ray of right ankle Clay Schwarz MD Work Phone: Start: 12-13-2024 Plain X-ray of right tibia and right fibula Ivelisse Schwarz MD Work Phone: Start: 12-13-2024 X-ray of right ankle Ma salma Schwarz MD Work Phone: Start: 09-21-2018 Screening for osteoporosis Ivelisse Schwarz Other Start: 08-17-2018 Mammography Chidi alcala DPM Work Phone: Start: 08-15-2018 Screening for malign ant neoplasm of colon Ivelisse Schwarz Other Start: 06-29-2017 General examination of patient Ivelisse Schwarz Other Start: 06-29-2017 Screening mammography M angel Schwarz Other Screening for malign ant neoplasm of breast Ivelisse Schwarz Other Plan of Treatment Date Care Activity Detail Author Start: 02-17-2027 Screening for malign ant neoplasm of colon [facility] Start: 01-03-2025 X-ray of right ankle XR ankle RT min 3V* [facility] Start: 01-03-2025 XR Ankle - right GE 3 Views [facility] Start: 12-13-2024 Plain X-ray of right tibia and right fibula XR tibia fibula RT 2V* [facility] Start: 12-13-2024 X-ray of right ankle XR ankle RT min 3V* [facility] Start: 12-13-2024 XR Ankle - right GE 3 Views [facility] Start: 12-13-2024 XR Tibia and Fibula - right 2 Views [facility] Start: 08-28-2024 Urine culture [facility] Start: 08-28-2024 Bacteria identified in Urine by Culture Urine Culture [facility] Start: 04-24-2024 End: 04-24-2024 Patient encounter procedure 04/24/2024 2:30 PM EST Office Visit [facility] [address] [facility] [place] [address] Chidi Pickett DPM [address] [place] [address] Arrived [facility] Comment on above: Arrived Start: 01-30-2024 Influenza vaccination Influenz a Vaccine (#1) [facility] Start: 08-18-2019 Screening for malign ant neoplasm of breast Mammogram [facility] Start: 1955 Screening for malign ant neoplasm of colon [facility] Immunizations Immunization Date Immunization Notes Care Provider Jamal rodrigues 04-24-2024 influenza, high dose seasonal, preservative-free Ivelisse Schwarz MD Work Phone: [facility] 05-17-2023 influenza virus vaccine, unspecified formulation Chidi SPAINM Work Phone: [facility] 04-21-2023 influenza virus vaccine, unspecified formulation Ivelisse Schwarz MD Work Phone: [facility] 04-21-2023 influenza, high dose seasonal, preservative-free Ivelisse Schwarz Other [facility] Other 06-11-2020 zoster vaccine, live Ivelisse Schwarz Other [facility] 02-16-2020 zoster vaccine, live Ivelisse Schwarz Other [facility] 08-03-2019 influenza virus vaccine, split virus (incl. purified surface antigen) Ivelisse Schwarz Other [facility] Other 08-03-2019 influenza virus vaccine, unspecified formulation Ivelisse Schwarz MD Work Phone: [facility] Payers Date Payer Category Payer Self-pay 2021 Medicaid [employer] MED[employer]ARE A DVANTAGE [id number] 1960 Medicare [id number] 1960 Medicare [id number] 1955 Unknown [id number] 1955 Unknown [id number] 1955 Unknown [id number] Unknown [id number] Unknown [id number] Unknown [id number] Social History Date Type Detail Facility Sex Assigned At [facility] Other Tobacco smoking status [facility] Tobacco smoking consumption unknown [facility] Start: 1955 Sex assigned at Not on file [facility] Start: 04-24-2024 End: 08-28-2024 Tobacco smoking status [facility] Never smoked tobacco [facility] Start: 04-24-2024 Tobacco use and exposure Smokeless tobacco non-user [facility] Start: 04-24-2024 Alcoholic beverage intake Current drinker of alcohol (finding) [facility] Start: 04-24-2024 Alcohol Comment once a [facility] Start: 08-29-2024 End: 08-29-2024 Sex Female (finding) [facility] Start: 1955 Sex Assigned At Female F [facility] Clinical Notes 01-29-2023 to 12-13-2024 Note Date & Type Note Facility 12-13-2024 Evaluation note Diagnosis Onset Date Resolution Fracture of right ankle, lateral malleolus acute December 13, 2024 2:12pm [facility] Work Phone: 1(506) 930-524707-16-2025 Evaluation note* Diagnosis Onset Date Resolution Status Admit Date Fracture of right ankle, lat eral malleolus acute December 13, 2024 2:12pm Fracture of right ankle, lat eral malleolus acute January 03, 2025 8:11am [facility] Work Phone: 1(274) 766-299003-31-2025 Evaluation note* Diagnosis Onset Date Resolution Status Admit Date Dysuria acute August 28 2:49pm [facility] Work Phone: 1(986) 991-330811-25-2024 History of Present illness Narrative* Chidi Pickett, THERESA - 04/24/2024 2:30 PM EST Images from the original note were not included. Subjective Patient ID: Nathalie Richey is a 68 y.o. female who presents for Bunions (Pt is here today complaining BL bunion area pain, Rt is worse than Lt. When it is bothersome she isn't doing any certain activity. Pain radiates into arch area and the arch is more painful than the bunion. Tried OTC motrin, tiffanieef /SS: 8.5). HPI This is a new patient who presents to clinic with concern of bilateral foot pain. This has been going on for a few months. Patient states that she will occasionally throughout the day get sharp painsin the plantar aspect of the feet. Lasts for maybe 5 minutes or so and then goes away. Described assharp, aching in nature. No treatment tried. She [...] past medical history. Medications Current Outpatient Medications: Dushpqo-Rugijnoirb-Nxzmbkw D (CALCIUM GUMMIES PO), Take by mouth, [...] on the left foot with medial eminence formation,lateral deviation of the hallux. Ankle dorsiflexion 0 [...] consistent with plantar fasciitis. I recommend taking bdnj-tbi-yuptzbj anti-inflammatory daily for 2 weeks to help [...] corrected. Thank you for your understanding. Chidi Pickett DPM documented in this [facility]09-01-2023 Evaluation note* Encounter Date Diagnosis Assessment Notes Treatment Notes Treatment Clinical Notes Jan, Dysuria (ICD-10 - R30.0) [facility] [place] Other Evaluation noteNo InformationNo[facility] [place] Other Evaluation note* Diagnosis Plantar fasciitis- Primary Plantar fascial fibromatosis Equinus contracture of right ankle Equinus contracture of left ankle documented in this encounter [facility] HealthcareEvaluation note* Diagnosis Onset Date Resolution Status Admit Date Fracture of right ankle, lat eral malleolus acute December 13, 2024 2:12pm [facility] Work Phone: History general Narrative - Reported* Type Description Date Medical History Problem Title : comp liance [...] : x 3 Appendectomy Colonoscopy 2004 - normal, Problem Status : Active, Hospitalization History See Above [facility] Other History general Narrative - Reported* Type Description Date Medical History Hyperlipemia Medical History Transient elevated blood pressur e Medical History Abnormal mammogram of left breas t Surgical History bunionectomy Surgical History C section Hospitalization History See Above [facility] Other Reason for referral (narrative)No reason for referral information availableOhio[facility] Work Phone: Summary Purpose Family History No Family History Records Found Relationship Condition Age at Onset Recorded Date/T tiffanie father Malignant neoplasm Unknown Unknown mother Malignant neoplasm Unknown Advance Directives No Advanced Directives Records Found Advance Directive Response Recorded Date/ Time Advance Directives No August 28 025 2:46pm Chief Complaint and Reason for Visit Chief Complaint Admit Date UA, Discomfort, burning August 28, 2024 2:49pm Reason for Visit Admit Date Dysuria August 28, 2024 2:4 9pm Chief Complaint Admit Date ER [facility] RT ANKLE FX WX December 13, 2024 2: 12pm S99.911A - Unspecified injury of right a nkle, init December 13, 2024 2:16pm Reason for Visit Admit Date Fracture of right ankle, lateral malleol us December 13, 2024 2:12pm Chief Complaint Admit Date ER [facility] RT ANKLE FX WX December 13, 2024 2: 12pm S99.911A - Unspecified injury of right a nkle, init December 13, 2024 2:16pm 3 WEEKS POST OP January 03, 2025 8:1 1am S82.61XA - Displaced fracture of lateral malleolus January 03, 2025 8:19am Reason for Visit Admit Date Fracture of right ankle, lateral malleol us December 13, 2024 2:12pm Fracture of right ankle, lateral malleol us January 03, 2025 8:11am Additional Source Comments INFORMATION SOURCE (unrecogn ized section and content) DATE CREATED AUTHOR 03/12/2021 [facility] DATE CREATED AUTHOR AUTHOR'S ORGANIZ ATION 02/27/2022 [facility] DATE CREATED AUTHOR AUTHOR'S ORGANIZ ATION 04/26/2024 [facility] EPIC DATE CREATED AUTHOR AUTHOR'S ORGANIZ ATION 01/05/2025 [facility] REASON FOR VISIT (unrecogniz ed section and [...] Care Teams (unrecognized sec tion and content) Tourist Information Assistant Relationship Specialty Start Date End Date Ivelisse Schwarz MD [address] [place] [id number] PCP - General Family Medicine 03/30/24 Tourist Information Assistant Relationship Specialty Start Date End Date Ivelisse Schwarz MD [address] [facility] [place] [address] PCP - General Family Medicine 03/30/24 Team Status: Inactive Member Role Status Dates Ivelisse Schwarz MD Primary Care Provide r, Attending Provider Active Start: August 28, 2024 End: August 28, 2024 Team Status: Active Member Role Status Dates Ivelisse Schwarz MD Attending Provider Active St art: August 28, 2024 Team Status: Inactive Member Role Status Dates Ivelisse Schwarz MD Attending Provider Active St art: August 28, 2024 End: August 28, 2024 Team Status: Active Member Role Status Dates Ivelisse Schwarz MD Primary Care Provider Active Team Status: Inactive Member Role Status Dates Jimbo Davenport II, MD Attending Provider Active Start: December 13, 2024 End: December 13, 2024 Ivelisse Schwarz MD Primary Care Provider Active Start: December 13, 2024 End: December 13, 2024 Team Status: Active Member Role Status Dates Ivelisse Schwarz MD Primary Care Provider Active Start: December 13, 2024 Jimbo Davenport II, MD Attending Provider Active Start: December 13, 2024 Team Status: Inactive Member Role Status Dates Ivelisse Schwarz MD Primary Care Provider Active Start: December 13, 2024 End: December 13, 2024 Jimbo Davenport II, MD Attending Provider Active Start: December 13, 2024 End: December 13, 2024 Team Status: Inactive Member Role Status Dates Ivelisse Schwarz MD Primary Care Provider Active Start: January 03, 2025 End: January 03, 2025 Jimbo Davenport II, MD Attending Provider Active Start: January 03, 2025 End: January 03, 2025 Team Status: Active Member Role Status Dates Ivelisse Schwarz MD Primary Care Provider Active Start: January 03, 2025 Jimbo Davenport II, MD Attending Provider Active Start: January 03, 2025 Goals (unrecognized section and content) Goals may be documented in a n alternate section FOR RECORDS PERTAINING TO PATIENTS WHO ARE [...] BE BASED ON THE PRIMARY CLINICAL RECORDS. [facility]. provides no warranty or guarantee of the accuracy or completeness of information in this document.
== END 2025-02-06 09:18 | disposition home or self-care (01) ==
LOC: RAD 09:17
PROVIDERS: PCP Family Medicine; Visit Provider Family Medicine
DX: Z78.0 Asymptomatic menopausal state (principal); M85.88 Other specified disorders of bone density and structure, other site
CPT/HCPCS: 77080

== ENCOUNTER 2025-04-30 11:20 | Outpatient (OUT) | payer MEDICARE, SELFPAY ==
--- OUTSIDE RECORDS SUMMARY | 2025-04-30 05:43 | XMS_ITS | Continuity of Care Document ---
Author Organization [facility] Address [address] [place] [id number] Phone Care Team Providers Care Router Operator Radial Name Role Phone Ivelisse Georges MD Primary Care Provider Ivelisse Georges MD Attending Provider Care Teams Patient Care Team Team Status: Active Member Role/Relationship Status Dates Ivelisse Georges MD Primary Care Provider Active Patient Care Team Team Status: Inactive Member Role/Relationship Status Dates Ivelisse Georges MD Primary Care Provider Active Start: April 30, 2025 End: April 30, 2025Ivelisse Georges MDAttending ProviderActiveStart: April 30, 2025 End: April 30, 2025 Chief Complaint and Reason for Visit Chief Complaint Admit Date Wellness April 30, 2025 9 :21am Reason for Visit Admit Date Left hip pain April 30, 2025 9 :21am Allergies, Adverse Reactions, Alerts Allergen Type Severity Reaction Last Updated Verified Status No Known Allergies Allergy Unknown April 30, 2025 9:32amYesActive Social History Smoking Status Status Start Date End Date Date of Observa tion Never smoked tobacco (finding) August 28, 2024 2:46pm Observation Status Observation Response Date of Response Legal Sex Female (finding) Sex Assigned At BirthFemaleJuly 1955 Family History Relationship Condition Age at Onset Recorded Date/T tiffanie father Malignant neoplasm Unknown DeceasedUnknownmotherMalignant neoplasmUnknownDeceasedUnknown Problems Active Problems Problem Diagnosis/Recorded Date Onset Date Stat us Medicare annual wellness vis it, subsequent April 24, 2024 10:08am Unknown Active Screening for colon cancer February 07, 2024 7:14am Unknown Active Screening mammogram for breast cancer April 24 024 10:08am Unknown Active Menopause January 30, 2025 7:25am Unknown A ctive Dysuria August 28, 2024 2:32pm Unknown Acti ve Fracture of right ankle, lat eral malleolus December 13, 2024 2:45pm Unknown Active Left hip pain April 30, 2025 9:50am Unknown A ctive Medications Medication Status Dose Units Route Directions Qty Days Refills S tart Date Stop Date End Date Reason(s) Instructions Adherence [place] (No Known Home Meds) Active April 24, 2024 12:00am Immunizations Immunization Event Date Not Given Reason Dose Number Music Cataloguer Lot Number Reason(s) Given Vaccine Information Statement (VIS) Detail Administration Location Fluzone TIV High-Dose 65YR+ April 24, 2024 [id number] 65YR+April 30, 2025 [id number] [facility]in[facility], unspecified formulationMarch 2019 influenza, unspecified formulationNovember 2022Shingles (Zoster)February 16, 2020Shingles (Zoster)June 11, 2020 Vital Signs Vital Reading Result Reference Range Collection Date/Time Height 63 [in_i] April 30, 2025 9:20mdYesrkg18.67 kgDecember 2024 9:31amHeart Rate69 /xuz16-812Jajbrdfl 1st, 2025 9:31amBP Syukjtpg518 mm[Hg]100-140Decemb2024 9:31amBP Ysirmfgzt77 mm[Hg]60-100December 2024 9:31amBMI (Body Mass Index)26.0 kg/h8Iskwyqcj2024 9:31am Advance Directives Advance Directive Response Recorded Date/ Time Advance Directives No August 28 025 1:46pm Insurance Providers Guarantor Corinna Zimmer Address [address] [place] [id number] Info[employer]Home Phone: Coverage Status Update:2024 Payer Group Member ID Coverage Type Subscriber Relationship to Subscriber Effective Date Expiration Date Aejamey [facility] Id: [id number] L Michaels Id: [id number] [address] [place] [address] Home Phone: Self Encounters Encounter Location(s) Arrival/Admit Date Discharge/Departure Date Discharge/Departure Disposition Provider(s) Departed Physician/ Provider Office Visit -[facility] April 30, 2025 9:21am April 30, 2025 10:21am Discharged to home care or self care (routine discharge) Ivelisse Georges MD Recent Diagnosis Onset Date Admit Date Left hip pain Unknown April 30 9:21am Assessments Diagnosis Onset Date Resolution Status Admit Date Left hip pain acuteDecemb2024 9:21am Plan of Treatment Future Tests Future scheduled test information is unavailable Pending Tests Test Name Ordered Date Scheduled Date XR hip LT min 2V(w/wo pelvis)* April 30 9:49am Future Visits Future appointment information is unavailable Future Procedures Future procedure information is unavailable Future Medications Future medication information is unavailable Patient Instructions Patient instructions are unavailable
--- OUTSIDE RECORDS SUMMARY | 2025-04-30 11:26 | XMS_ITS | Clinical Summary ---
Author Organization [facility] tem Address [id number] [address] [place] [address] Care Team Providers Care Load Builder Name Role Phone Ivelisse Georges MD Primary Care Provider [phone] Allergies No known active allergies Medications MedicationSigDispense QuantityRefillsLast FilledStart DateEnd DateStatus FLUoxetine (PROzac) 20 mg capsule Take 20 mg by mouth daily.Active Active Problems No known active problems Family History Medical HistoryRelationNameCommentsCancerFatherHeart diseaseMotherLupusMother Thyroid diseaseMotherBreast cancerNeg HxRelationNameStatusCommentsFatherMother Social History Tobacco UseTypesPacks/DayYears UsedDateSmoking Tobacco: NeverSmokeless Tobacco: NeverAlcohol UseStandard Drinks/WeekCommentsYes0 (1 standard drink = 0.6 oz pure alcohol)occassionallyChildcareAnswerDate HqehnzfkRtezbyowfQwoxbdw36/12/2019 EmploymentAnswerDate StvkocuzSghzmyvpxwZgreeii60/12/2019Purpose - LifeAnswerDate RecordedPurpose and direction in udidJtymbvm25/11/2021CommentsNoSex and Gender InformationValueDate RecordedSex Assigned at BirthNot on fileLegal Sex Bizsco3101/03/2015 11:39 AM EDTGender IdentityNot on fileSexual OrientationNot on file Last Filed Vital Signs Vital SignReadingTime TakenCommentsBlood Erwpfcwu287/8004 3:30 PM EDT Jnpew7946 3:30 PM DCMFetwdccxilx09.7 ??C (98.1 ??F)09/27/2018 1:31 PM EDTRespiratory Vaix435209/27/2018 1:31 PM EDTOxygen Scdfcjysdy60%09/27/2018 3:30 PM EDTInhaled Oxygen Concentration--Mqrudd95.8 kg (145 lb)09/27/2018 1:31 PM EDT Pcyccm682 cm (5' 3 )09/27/2018 1:31 PM EDTBody Mass Index25.69009/27/2018 1:31 PM EDT Plan of Treatment Not on file Medical Devices ImplantedTypeAreaManufacturerDevice IdentifierShelf Expiration DateModel / Serial / LotLens Iol Ultrasert 20.5d - [id number] - [id number] Implanted:Qty: 1 on 09/27/2018 [facility]: [employer]12/29/2019AU00T0 20.5 / [id number] / NA Insurance Care Teams Team MemberRelationshipSpecialtyStart DateEnd Date Ivelisse Georges MD [address] [place] [address] [facility]08/15/18
--- OUTSIDE RECORDS SUMMARY | 2025-04-30 11:26 | XMS_ITS | Clinical Summary ---
Author Organization [facility] Address [address] [place] [address] Care Team Providers Care Traffic Or System Dispatcher Name Role Phone Ivelisse Georges MD Primary Care Provider [phone] Allergies No known active allergies Medications MedicationSigDispense QuantityRefillsLast FilledStart DateEnd DateStatus Fxpmoxt-Wivlvjuira-Ejrgvax D (CALCIUM GUMMIES PO) Take by mouthActive Family History Medical HistoryRelationNameCommentsCancerMotherThyroidHeart diseaseMother RelationNameStatusCommentsMother Social History Tobacco UseTypesPacks/DayYears UsedDateSmoking Tobacco: NeverSmokeless Tobacco: Never Tobacco Cessation:Counseling Given: Not Answered Alcohol UseStandard Drinks/WeekCommentsYes0 (1 standard drink = 0.6 oz pure alcohol)once a weekCommentsUnknownSex and Gender InformationValueDate RecordedSex Assigned at BirthNot on fileLegal DicUpiznt05/15/2023 7:11 PM EDT Gender IdentityNot on fileSexual OrientationNot on file Last Filed Vital Signs Vital SignReadingTime TakenCommentsBlood Pressure--Pulse--Temperature-- Respiratory Rate--Oxygen Saturation--Inhaled Oxygen Concentration--Ovtikb61.3 kg (144 lb)04/24/2024 2:12 PM RWWVdzgue432 cm (5' 3 )04/24/2024 2:12 PM ESTBody Mass Index25.51106/24/2023 2:12 PM EST Plan of Treatment Not on file Insurance Care Teams Team MemberRelationshipSpecialtyStart DateEnd Date Ivelisse Georges MD PCP - GeneralFamily Gnyhvlxb02/31/24
--- OUTSIDE RECORDS SUMMARY | 2025-04-30 11:51 | XMS_ITS | CCD ---
Author Organization [facility] Care Team Providers Care Acidizer Helper Name Role Phone DR IVELISSE SCHWARZ Primary Care Unavailable KARISHMA, DR IVELISSE Sr Admitting Unavailable KARISHMA, DR IVELISSE Sr Attending Unavailable KARISHMA, DR IVELISSE Sr Consulting Unavailable KARISHMA, DR IVELISSE Sr Primary Care Unavailable KARISHMA, DR IVELISSE Sr Admitting Unavailable KARISHMA, DR IVELISSE Sr Attending Unavailable [place], DR KEN Vaughn Consulting Unavailable KARISHMA, DR IVELISSE Sr Consulting Unavailable Ivelisse Schwarz Unavailable Ivelisse Schwarz MD Primary Care Provider CHIDI PICKETT Attending Unavailable Ivelisse Schwarz MD Attending Provider Jimbo Davenport MD Attending Provider Ivelisse Schwarz MD Primary Care Provider Ivelisse Schwarz Admitting Unavailable Ivelisse Schwarz Attending Unavailable Ivelisse Schwarz Primary Care Unavailable Jimbo Davenport II Admitting UnavailJimbo Iqbal II Attending UnavailIvelisse Liang Primary Care Unavailable Jimbo Davenport II Admitting UnavailJimbo Iqbal II Attending Unavailpeggy sr Allergies Allergy ClassificationReported Allergen(s)Allergy TypeDate of OnsetReaction(s) Facility (3 sources)patient allergy list reviewed by nurse or physiciaPropensity to adverse dcacptbvd02-52-6943Ryfbaxa:The Networking Effect Other Medications Current Medications MedicationDrug Class(es)DatesSig (Normalized)Sig (Original) Kfbdibh-Dxfbmmugnh-Zllcldx D (CALCIUM GUMMIES PO) (2 sources)Hhwruec-Tsmwbelbig-Rlrucar D (CALCIUM GUMMIES PO) Take by mouth ActiveIbuprofen (1 source)Nonsteroidal Anti-inflammatory DrugMotrin ActivePARoxetine (1 source)Serotonin Reuptake InhibitorPaxil Activesulfamethoxazole 800 mg / trimethoprim 160 mg oral tablet (1 source)Dihydrofolate Reductase Inhibitor Antibacterial, Sulfonamide Antimicrobialtake 1 tablet by mouth every twelve hoursBactrim DS 800-160 MG 1 tablet Orally Twice a day for 5 days ActivevalACYclovir 1000 mg oral tablet (3 sources)Herpesvirus Nucleoside Analog DNA Polymerase Inhibitor, Herpes Simplex Virus Nucleoside Analog DNA Polymerase Inhibitor, Herpes Zoster Virus Nucleoside Analog DNA Polymerase Inhibitortake 1 tablet by mouth every twenty- four hoursValtrex 1 GM 1 tablet Orally Once a day for 30 days Activetake 2 tablets by mouth twice dailyValtrex 1 GM 2 tab Orally bid for 1 days Active Valtrex ActiveValcyclovir-1000 mg TID 500 mg (1 source)Start: 84-20-8319zsam 2 tablets by mouth three times dailyValcyclovir- 1000 mg TID 500 mg 2 tabs orally three times a day for 7 days Jul, Active Problems Active Problems Problem ClassificationProblemDateDocumented DateEpisodic/ChronicDisorders of lipid metabolism (3 sources)Hyperlipidemia; Translations: [Hyperlipidemia, unspecified]Chronic Fracture of lower limb (11 sources)Displaced fracture of lateral malleolus of right fibula, initial encounter for closed fracture; Translations: [Fracture of lateral malleolus of right fibula]Onset: 774563-27-0972CznwnnntUymn disorders (1 source)Dysthymia; Translations: [Dysthymic disorder]Onset: 67-69-9246Cakxfnz Other acquired deformities (2 sources)Equinus contracture of the ankle; Translations: [Contracture, right ankle]32-89-0010XqxtmvvPzhzz acquired deformities (2 sources)Equinus contracture of the ankle; Translations: [Contracture, left ankle]26-72-9981HgqoshaVfklf circulatory disease (3 sources)Elevated blood-pressure reading without diagnosis of hypertension; Translations: [Elevated blood-pressure reading, without diagnosis of hypertension]EpisodicOther connective tissue disease (2 sources)Plantar fasciitis; Translations: [Plantar fascial fibromatosis] 12-31-1483OvfxqhdhKzrsy injuries and conditions due to external causes (1 source)History of fall; Translations: [History of falling]EpisodicOther injuries and conditions due to external causes (1 source)Unspecified injury of right ankle, initial encounter; Translations: [Unspecified injury of right ankle, initial encounter]Onset: 30-22-5166Szboqpuw Other nutritional; endocrine; and metabolic disorders (1 source)Body mass index 25-29 - overweight; Translations: [Body mass index (BMI) 25.0-25.9, adult]EpisodicOther screening for suspected conditions (not mental disorders or infectious disease) (20 sources)Encounter for screening mammogram for malignant neoplasm of breast; Translations: [Encounter for screening for malignant neoplasm of cervix]Onset: 31-06-5810YjgeonomSghdblfp codes; unclassified (2 sources)Postmenopausal state; Translations: [Asymptomatic menopausal state] Onset: 67-06-6819RkrgpvxrBvpzw infection (1 source)Disease caused by 2019-nCoV; Translations: [COVID-19] Past or Other Problems Problem ClassificationProblemDateDocumented DateEpisodic/ChronicGenitourinary symptoms and ill-defined conditions (13 sources)Dysuria; Translations: [Dysuria]Onset: 85-23-9867Kyztbbxa Inflammation; infection of eye (except that caused by tuberculosis or sexually transmitteddisease) (1 source)Acute conjunctivitis; Translations: [Unspecified acute conjunctivitis, bilateral]Onset: 14-90-1997AnlawfxfAeenr bone disease and musculoskeletal deformities (1 source)Disorder of bone and articular cartilage; Translations: [Disorder of bone and cartilage, unspecified]Onset: 07-56-5794UpvhonsaKwaue infection (1 source)Herpesviral vesicular dermatitis; Translations: [Herpesviral vesicular dermatitis]Onset: 40-29-8738Mdhiquag Results Test NameValueInterpretationReference RangeFacilityX-ray reportOrdered By: Babak Fields on 78-07-3051Dkwwg reportFIRSELECT MEDICAL SPECIAL[facility] [address] [place] [address] XRay Report Signed Patient: Nathalie Richey MR#: [id number] : 1955 Acct:[id number] Age/Sex: 69 / F ADM Date: 5 Loc: [facility] [place] Room: Type: [facility] Attending Dr: Jimbo Davenport II, MD Copies [...] By: Babak Fields MD 01/03/251531 Signed By: 01/03/251533 [facility] Work Phone: XR ankle RT min 3V*on 86-30-6116QY ankle RT min 3V* [facility] [address] [place] [address] XRay Report Signed Patient: Nathalie Richey MR#: [id number] : 1955 Acct:[id number] Age/Sex: 69 / F ADM Date: 01/03/25 Loc: [facility] [place] Room: Type: [facility] Attending Dr: Jimbo Davenport II, MD Copies [...] Dictation Location: RADIO-PC-29 Transcribed By: ETELVINA 01/03/25 1534 Dictated By: Babak Fields MD 01/03/25 1532 Signed By: 01/03/25 1534[facility] Physician GroupX-ray reportOrdered By: Junaid Royal on 07-69-2183Zsfhb reportTRINITY HEALTH SYSTEM [facility] [address] [place] [address] XRay Report Signed Patient: Nathalie Richey MR#: [id number] : 1955 Acct:[id number] Age/Sex: 68 / F ADM Date: 5 Loc: [facility] [place] Room: Type: [facility] Attending Dr: Jimbo Davenport II, MD Copies to: Jimbo Davenport MD~ Ordering Provider: Jimbo Davenport MD Date of Service: 12/13/24 XR/XR tibia fibula RT 2V*: S99.911A - Unspecified injury of right ankle,initial enc... XR tibia fibula RT 2V* 12/13/2024 [...] Royal M.D. 12/13/2024 8:23 PM Dictation Location: [place] [address] Transcribed By: [facility] 12/13/242022 Dictated By: Junaid Royal II, MD 12/13/242020 Signed By: 12/13/242022 [facility] Work Phone: Study reportTRINITY HEALTH SYSTEM [facility] [address] [place] [address] XRay Report Signed Patient: Nathalie Richey MR#: [id number] : 1955 Acct:[id number] Age/Sex: 68 / F ADM Date: 5 Loc: [facility] Room: Type: REG CLI Attending Dr: Jimbo Davenport II, MD Copies to: Jmibo Davenport MD~ Ordering Provider: Jimbo Davenport MD [...] Royal M.D. 12/13/2024 7:55 PM Dictation Location: [place] [address] Transcribed By: [facility] 12/13/241954 Dictated By: Junaid Royal II, MD 12/13/241952 Signed By: 12/13/241954 [facility] Work Phone: XR ankle RT min 3V*on 24-46-5734YO ankle RT min 3V* [facility] [address] [address] XRay Report Signed Patient: Nathalie Richey MR#: [id number] : 1955 Acct:[id number] Age/Sex: 68 / F ADM Date: 12/13/24 Loc: [facility] [place] Room: Type: REG [facility] Attending Dr: Jimbo [...] Royal M.D. 12/13/2024 7:55 PM Dictation Location: [place] [address] Transcribed By: [facility] 12/13/241954 Dictated By: Junaid Royal II, MD 12/13/241952 Signed By: 12/13/241954[facility] Physician GroupXR tibia fibula RT 2V*on 79-51-6702TC tibia fibula RT 2V*[facility] [address] [place] [id number] XRay Report Signed Patient: Nathalie Richey MR#: [id number] : 1955 Acct:[id number] Age/Sex: 68 / F ADM Date: 12/13/24 Loc: [facility] [place] Room: Type: [facility] Attending Dr: Jimbo Davenport II, MD Copies [...] Royal M.D. 12/13/2024 8:23 PM Dictation Location: [facility]--17 Transcribed By: ETELVINA 12/13/242022 Dictated By: Junaid Royal II, MD 12/13/242020 Signed By: 12/13/242022[facility] Physician GroupUrine Cultureon 08-28-2024 Bacteria identified Cx Nom (U)75,000 colonies/ml mixed bacterial skin contaminants 2 Days PERFORMED BY: [place] [address] PATHOLOGIST REWINDER OPERATOR BABS DIKCENS M.D.[facility] Physician [facility] Memorial HospitalComment on above: Performed By: #### CUU #### [place] [address] USAUrinalysis - DIPSTICKon 15-43-1134Ormtyjzvhb (U)clearPlethora Technology [employer] Other Bilirubin Ql (U)NegativeNew York [employer] Other Color (U)yellowNew York [employer] Other Glucose Ql (U)NegativeNew [place] [employer] Other Hemoglobin Ql (U)largeNobarnes-jewish saint peters hospital [employer] Other Ketones Ql (U)NegativeNew [place] [employer] Other Leukocyte esterase Test strip Ql (U)moderateNort [employer] Other Nitrite Ql (U)NegativeNew [place] [employer] Other pH (U)5.0 [pH][place] [employer] Other Protein Ql (U)NegativeNoJibJab Other Specific gravity (U) [Rel density]1.000Nort [employer] Other Urobilinogen (U) [Mass/Vol]normalNoCallVU Other Urinalysis - DIPSTICKNoJibJab Other MG MAMM SCREEN 3D KWAKU CADon 13-71-3694LE MAMM SCREEN 3D KWAKU CADPatient: NATHALIE RICHEY Exam Date: 02/12/2022 : 1955 Gender:F Ordering : DR IVELISSE SCHWARZ M.D. Admission #: [id number] Family : Order #: [id number] CLICK HERE TO VIEW EXAM RADIOLOGY REPORT [...] Treatments None Family Cancers None LOCATION: [facility] BREAST COMPOSITION: Scattered areas fibroglandular density. FINDINGS: [...] by: Ken Gibbs MD on 02/13/2022 at 07:37[facility] MemorialPap IG, rfx Aptima HPV, rfx 16/18,45on 01-18-2022..NormalThe [facility] Comment on above:Result Comment: Performed at: WBPerformed By: #### [id number] #### [facility] [address] [place] [address] Dr. Shaheed PearceDIAGNOSIS:CommentNoSelect Medical [facility] [place] on above: Result Comment: NEGATIVE FOR INTRAEPITHELIAL LESION OR MALIGNANCY. CELLULAR CHANGES ASSOCIATED WITH ATROPHY ARE PRESENT. Performed at: WBPerformed By: #### [id number] #### [facility] [address] [place] [address] [address] Shaheed PearceHPV AptimaNegativeNormalNegativeThe [facility]FairhillComtr[facility] on above:Result Comment: This nucleic acid amplification test detects fourteen high-risk HPV types (16,18,31,33,35,39,45,51,52,56,58,59,66,68) without differentiation. Performed at: =GPerformed By: #### [id number] #### [facility] [address] [place] [address] Dr. Shaheed PearceMethodology:CommentNoSelect Medical Specialty [facility] [place] on above: Result Comment: This liquid based ThinPrep(R) pap test was screened with the use of an image guided system. Performed at: WBPerformed By: #### [id number] #### [facility] [address] [place] [address] Dr. Shaheed PearceNote:CommentNoSelect Medical Specialty [facility] [place] on above:Result Comment: The Pap smear is a screening test designed to aid in the detection of premalignant and malignant conditions of the uterine cervix. It is not a diagnostic procedure and should not be used as the sole means of detecting cervical cancer. Both false-positive and false-negative reports do occur. . Performed at: WBPerformed By: #### [id number] #### [facility] [address] [place] [address] Dr. Shaheed PearcePerformed by:CommentNoSelect Medical Specialty [facility] [place] on above: Result Comment: Jory Dove, Design Agent (ASCP) Performed at: WBPerformed By: #### [id number] #### [facility] [address] [place] [address] Dr. Shaheed PearceSpecimen adequacy:CommentSelect Medical Specialty Hospital [facility] on above:Result Comment: Satisfactory for evaluation. Endocervical component may not be distinguished in cases of atrophy. Performed at: WBPerformed By: #### [id number] #### [facility] [address] [place] [address] Dr. Shaheed Anguiano Summary.on 45-28-0115Tvplbi Summary. CD:[id number]:[id number]+PGhlYWQ+FY4ECRBqF53jkPDabB1JA1nMKI2MEHSWMIDOHG8RSR8ac ZU6DJlrJ9FyqwXe [file] cHNl (more content not included)...[facility] ToledoCoding Summary. CD:712721PW:[id number]+PGhlYWQ+OM8ZUWIpF02weHXjuZ2EJ8tLWV5IQODVUOLMVQ6CLQ6gp CO8UBdbZ6QxhuYz [file] cHNl (more content not included)...NormalCorey HospitalPhysician Orderon 06-41-0573Gaymvuuic Order [id number]#[id number]:127NormalCorey HospitalAuto Diffon 70-53-2696Jdfcdgguy/100 WBC (Bld)0.8 %Normal0.0-2.0Corey HospitalComment on above:Order Comment: Order Added by Discern Expert.Performed By: #### 7227855, 72131918, 3780467, 9671932, 2654624 #### [facility] [address], [place] [address]Hajvjtnvc/Leukocytes Auto (Bld) [Pure # fraction]0.1 E9/LNormal 0.0-0.2[facility] Medical CenterComment on above:Order Comment: Order Added by Cayla Expert.Performed By: #### 2115637, 77943951, 7006389, 5552708, 5155381 #### [facility] [address], [place] [address]Pxhypxqites/100 WBC (Bld)1.3 %Normal0.0-8.0Corey HospitalComment on above:Order Comment: Order Added by Discern Expert.Performed By: #### 7005787, 02040428, 7753382, 8375812, 6809943 #### [facility] [address] [place] [address]Vlgqixlxjwk/Leukocytes Auto (Bld) [Pure # fraction]0.1 E9/L Normal0.0-0.5FMercy Memorial HospitalComment on above:Order Comment: Order Added by Discern Expert.Performed By: #### 9040710, 35354675, 4871266, 7408795, 7656248 #### [facility] [address] [place] [address]Kyogzhrvxgd/100 WBC (Bld)42.5 %Ykthva09.0-50.0Corey HospitalComment on above:Order Comment: Order Added by Discern Expert. Performed By: #### 3439676, 02159492, 7311894, 9722586, 4548797 #### [facility] [address] [place] [address]Fomldnhzvhi/Leukocytes Auto (Bld) [Pure # fraction]2.8 E9/L Normal1.0-4.0Corey HospitalComment on above:Order Comment: Order Added by Discern Expert.Performed By: #### 2904415, 01525732, 4725027, 1462607, 2101443 #### [facility] [address] [place] [address]Uzhsycrde/100 WBC (Bld)5.9 %Normal4.0-14.0Corey HospitalComment on above:Order Comment: Order Added by Discern Expert.Performed By: #### 6803185, 86631849, 1634389, 5515504, 2578155 #### [facility] [address] [place] [address]Rionqeaim/Leukocytes Auto (Bld) [Pure # fraction]0.4 E9/LNormal 0.2-1.0Corey HospitalComment on above:Order Comment: Order Added by Discern Expert.Performed By: #### 7055412, 43134377, 3657795, 4323381, 2531771 #### [facility] [address] [place] [address]Kzjkclenllb/100 WBC (Bld)49.5 %Rpbxly89.0-75.0Corey HospitalComment on above:Order Comment: Order Added by Discern Expert. Performed By: #### 3062124, 68433942, 6256589, 6614506, 5772711 #### [facility] [address] [place] [address]Rpeffytofhd/Leukocytes Auto (Bld) [Pure # fraction]3.2 E9/L Normal2.0-7.5FMercy Memorial HospitalComment on above:Order Comment: Order Added by Discern Expert.Performed By: #### 9413071, 05015448, 5712925, 8653136, 2301882 #### [facility] [address] [place] [address]XUP w/ Auto Diffon 22-58-7170Pultsltgqdh distribution width (RBC) [Ratio]14.1 %Cftujy32.9-14.2FMercy Memorial HospitalComment on above: Performed By: #### 6689264, 81094483, 3664019, 5143906, 4039550 #### [facility] [address] [place] [address]Iejbxfisso (Bld) [Volume fraction]37.0 %Xxbqep57.0-46.0Corey HospitalComment on above:Performed By: #### 3181512, 36358555, 2418607, 3548312, 7432699 #### [facility] [address] [place] [address]Tgkqiuhaas (Bld) [Mass/Vol]12.1 g/pVQfhipf95.0-16.0Corey HospitalComment on above:Performed By: #### 6325433, 52876954, 3419618, 8827994, 6194671 #### [facility] [address], [place] [address]JGP (RBC) [Entitic mass]27.8 ecPxpcpf27.0-34.0Corey HospitalComment on above:Performed By: #### 3403113, 44237647, 0744592, 5326746, 4808301 #### [facility] [address], [place] [address]MAWK (RBC) [Mass/Vol]32.7 g/aJDlhcrk48.4-36.0Corey HospitalComment on above:Performed By: #### 5139147, 32353869, 8128888, 5244595, 3357750 #### [facility] [address] [place] [address]ERD (RBC) [Entitic vol]84.8 rQScqfuy09.0-100.0Corey HospitalComment on above:Performed By: #### 4626918, 21048853, 4292373, 2699677, 4890902 #### [facility] [address] [place] [address]Morvkwvk mean volume (Bld) [Entitic vol]8.2 fLNormal6.4-10.8 Corey HospitalComment on above:Performed By: #### 6772089, 84621837, 4001796, 1113055, 0436915 #### [facility] [address], [place] [address]Wdwktctcz (Bld) [#/Vol]307.0 E9/QRkzfeu718.0-500.0Corey HospitalComment on above:Performed By: #### 6957584, 26347202, 6510548, 9396315, 3289476 #### [facility] [address] [place] [address]HHW (Bld) [#/Vol]4.4 E12/LNormal4.3-5.9Corey HospitalComment on above:Performed By: #### 9877853, 70744223, 6292183, 7426604, 9843970 #### [facility] [address] [place] [address]KAR corrected for nucl RBC Auto (Bld) [#/Vol]6.5 E9/LNormal 4.0-11.0Corey HospitalComment on above:Performed By: #### 9743753, 61587655, 3000602, 8948664, 6493071 #### [facility] [address] [place] [address]WLQpu 32-33-4835Iorktck [Mass/Vol]4.4 g/dLNormal3.3-5.0Corey HospitalComment on above:Performed By: #### 0803887, 05581966, 0224122, 0789035, 6053126 #### [facility] [address] [place] [address]Aitryfg/Globulin (S) [Mass conc ratio]1.5Oqjubd9.1-2.2FMercy Memorial HospitalComment on above:Performed By: #### 9978815, 55477236, 7529634, 8273022, 9918487 #### [facility] [address] [place] [address]VNE [Catalytic activity/Vol]77 Int._Unit/NUdaxwc94-57PoatgjCorey HospitalComment on above:Performed By: #### 7861198, 55627104, 8097333, 3337456, 4714764 #### [facility] [address], [place] [address]NEO No additional P-5'-P [Catalytic activity/Vol]23 Int._Unit/L Normal6-46Corey HospitalComment on above:Performed By: #### 3995804, 99351847, 3771708, 1449522, 3755749 #### [facility] [address] [place] [address]Tcuna gap [Moles/Vol]13 mmol/LNormal6-16Corey HospitalComment on above:Performed By: #### 2513289, 24300404, 9030889, 7715783, 0254288 #### [facility] [address], [place] [address]FXM [Catalytic activity/Vol]26 Int._Unit/LNormal5-43Corey HospitalComment on above:Performed By: #### 7058186, 57673941, 9301576, 7904996, 7036884 #### [facility] [address], [place] [address]Qkulwnbsm [Mass/Vol]0.4 mg/dLNormal0.0-1.1FMercy Memorial HospitalComment on above:Performed By: #### 4139029, 70580630, 4762176, 1970728, 9954686 #### [facility] [address], [place] [address]Gogdvbk [Mass/Vol]9.2 mg/dLNormal8.9-11.1FMercy Memorial HospitalComment on above:Performed By: #### 2503004, 63915213, 6580142, 4683064, 1651771 #### [facility] [address], [place] [address]Goxspcoo [Moles/Vol]103 mmol/DRqaalb125-207KahgrgCorey HospitalComment on above:Performed By: #### 8272236, 71179439, 0451012, 7633005, 8594402 #### [facility] [address], [place] [address]LN5 [Moles/Vol]24 mmol/YEiomux98-03MhrhbvCorey Hospital Comment on above:Performed By: #### 0006696, 57577687, 1180140, 1643827, 5888680 #### [facility] [address], [place] [address]Dgpkkpxvdu [Mass/Vol]0.9 mg/dLNormal0.5-1.3FMercy Memorial HospitalComment on above:Performed By: #### 0224592, 99036376, 1523813, 6851459, 6169070 #### [facility] [address], [place] [address]Tozmbjwe (S) [Mass/Vol]3.0 g/dLNormal1.4-4.0Corey HospitalComment on above:Performed By: #### 0607101, 86821914, 5598031, 3659926, 2703506 #### [facility] [address], [place] [address]Qejfnhg [Mass/Vol]101 mg/qSFaqkky92-025ImeyohCorey HospitalComment on above:Result Comment: If this glucose result represents a fasting glucose, interpretation should refer tothe following reference range: 55-99 mg/dLPerformed By: #### 0929936, 44095700, 7106591, 8416890, 6134790 #### [facility] [address] [place] [address]Wiejfouhv [Moles/Vol]3.8 mmol/LNormal3.5-5.3FMercy Memorial HospitalComment on above:Performed By: #### 4705002, 11499027, 4646099, 4091801, 4562230 #### [facility] [address] [place] [address]Buoqezh [Mass/Vol]7.4 g/dLNormal6.0-7.8Corey HospitalComment on above:Performed By: #### 5047116, 84196613, 9368386, 7856880, 0958368 #### [facility] [address] [place] [address]Gnodbl [Moles/Vol]136 mmol/PXhtrrd252-172JaddxjCorey HospitalComment on above:Performed By: #### 5706078, 24299605, 0350790, 0521054, 0836717 #### [facility] [address], [place] [address]Chfr nitrogen [Mass/Vol]18 mg/dLNormal5-21Corey HospitalComment on above:Performed By: #### 0643728, 56665006, 0079493, 2200981, 3848262 #### [facility] [address], [place] [address]Deib nitrogen/Creatinine [Mass ratio]20 No HuarwZnqrlw75-52 Corey HospitalComment on above:Performed By: #### 1252320, 48191723, 6428807, 7258185, 4412844 #### [facility] [address], [place] [address]Ntafolt for Treatmenton 90-85-1144Rccqjjc for Treatment [id number]:127NormalCorey HospitalLipid Panelon 43-45-5550Syrkubckjua [Mass/Vol]282 mg/qERjtl083-819YnwipmCorey HospitalComment on above:Performed By: #### 7853443, 27748791, 7533524, 9635448, 6282923 #### [facility] [address], [place] [address]Ughxnhpqbwc in HDL [Mass/Vol]111 mg/dLInvalid Interpretation CodeCorey HospitalComment on above:Result Comment: HDL > or equal to 60 mg/dL: Low cardiovascular risk HDL < 40 mg/dL : High cardiovascular riskPerformed By: #### 5122563, 10653402, 1360250, 1405909, 2264919 #### [facility] [address], [place] [address]Elhgoxpxute in LDL [Mass/Vol]120 mg/dLNormal<=129Corey HospitalComment on above:Performed By: #### 9545565, 12006137, 9379617, 3626619, 1891510 #### [facility] [address], [place] [address]Lqahxaldtdo in VLDL [Mass/Vol]21 mg/dLNormal7-40Corey HospitalComment on above:Performed By: #### [id number] #### [facility] [address], [place] [address]Drrljymhfpkx [Mass/Vol]107 mg/dLNormal<=149Corey HospitalComment on above:Performed By: #### [id number] #### [facility] [address], [place] [address]Gysawgdsm Orderon 01-26-7754Wusplchyo Order [id number]#1.00CD:127NormalCorey HospitaleGFRon 53-38-4535VWO/1.73 sq M.predicted among blacks MDRD (S/P/Bld) [Vol rate/Area]mL/min/{1.73_m2}Normal>=59Core[facility] HospitalComment on above: Order Comment: Order added by Discern Expert.Result Comment: eGFR is race adjusted. AA=.Performed By: #### [id number] #### [facility] [address], [place] [address]KOZ/1.73 sq M.predicted among non-blacks MDRD (S/P/Bld) [Vol rate/Area]mL/min/{1.73_m2}Normal>=59Corey HospitalComment on above: Order Comment: Order added by Discern Expert.Result Comment: Chronic kidney disease could be indicated at eGFR's of less than 60 mL/min/1.73m2. Kidney failure is indicated at less than 15 mL/min/1.73m2.Performed By: #### [id number], [id number], [id number], [id number] #### [facility] [address] [place] [address] Vital Signs Date TimeVital SignValuePerforming KmmyvrljgShqereex83-88-8477 15:07-0400Body uzrids052.02 cmIvelisse Schwarz MD Work Phone: [facility]07-16-2025 15:07-0400 Body mass index (BMI) [Ratio]25.7 kg/e2XttuypIvelisse Scwharz MD Work Phone: [facility]07-16-2025 15:07-0400 Body ckpbeu80.77 kgIvelisse Schwarz MD Work Phone: [phone])259-[address] [place], [place] [address]407-16-2025 15:07-0400 Diastolic blood quwpvsdi69 mm[Hg]Ivelisse Schwarz MD Work Phone: [phone]07-16-2025 15:07-0400 Systolic blood yfgopbft213 mm[Hg]Ivelisse Schwarz MD Work Phone: [phone])013-[address] [place], [place] [address]8411-25-2024 14:12-0500 Body ehoaxz843 cmAnthony Rusher DPM Work Phone: [facility]Ussrrkhbtc09-51-2346 14:12-0500Body mass index (BMI) [Ratio]25.51 kg/j0Obxlhdf Rusher DPM Work Phone: [facility] HospitalHbrdijekeb25-16-7921 14:12-0500Body .32 kgAnthony Rusher DPM Work Phone: [facility] Encounters Encounter DateEncounter TypeCare ProviderFacilityStart: 01-03-2025 End: 86-07-2994fvpzwnjjjnPggfts E Braun MD Work Phone: [facility] Work Phone: Start: 01-03-2025 End: 72-42-8167Kgjsnmx encounter procedureRobert Issac Aceves MD-[facility] Work Phone: Start: 12-13-2024 End: 73-98-8173zusnppwxfpPxzgvn E Braun MD Work Phone: [facility] Work Phone: Start: 12-13-2024 End: 17-27-0221Kgnctbp encounter procedureRobert Issac Aceves MD-[facility] Work Phone: Start: 08-28-2024 End: 72-65-0447Ydwfacgl ReferredIvelisse Schwarz MD Work Phone: [facility] [place] Work Phone: Start: 71-75-2011Gzkytodupi ReferredIvelisse Schwarz MD Work Phone: [facility] [place] Work Phone: Start: 08-28-2024 End: 69-69-8219uwjxydnhuxSaylmj E [facility] Work Phone: Start: 08-28-2024 End: 91-99-5118Tnfyaov encounter procedureIvelisse Schwarz MD Work Phone: [facility] Work Phone: Start: 04-24-2024 End: 49-14-1641Rasfns outpatient new 30 minutesAnthony S Rusher DPM Work Phone: noms PODIATRYComment on above:Plantar fasciitis (Primary Dx); Equinus contracture of right ankle; Equinus contracture of left ankleStart: 04-24-2024 End: 04-28-5306fguiqdzizvPTOSQLC S RUSHERNot AvailableStart: 04-24-2024 End: 53-88-7052Wlwlbz flowsheetAnthony S Rusher DPM Work Phone: [facility] PODIATRYStart: 04-24-2024 End: 11-36-0704Mnicxl flowsheetAnthony S Rusher DPM Work Phone: [facility] PODIATRYStart: 93-58-3878Bkjamdo encounter procedureIvelisse Schwarz MD Work Phone: [facility] 07-[facility]-2023 End: 67-57-9209rgrkkeiwohYrzqjb Braun Other [place] [employer] Other Start: 40-32-5029Hyymnrmts encounterIvelisse [facility]Start: 05-11-2023 End: 04-21-6841sqbdswgujbEhssfw Braun Other [place] [employer] Other Start: 76-23-4814Btgfzdpuo encounterIvelisse [facility] ClinicStart: 01-29-2023 End: 19-85-8872ouczkkebwcGkcscq Braun Other [place] [employer] Other Start: 48-81-5174Largzrk evaluation of patient and reportIvelisse [facility] ClinicStart: 02-12-2022 End: 36-84-5168spwjwxvfzwHS IVELISSE SCHWARZFacility:T7Goftc: 43-52-5523Eouol health examinationIvelisse Schwarz Other [place] [employer] Other Start: 01-14-2022 End: 33-25-6042mpngqhlotwBV IVELISSE SCHWARZFacility:H1 Procedures DateProcedureProcedure DetailPerforming ClinicianStart: 61-12-8767K-ray of right ankleMandycia Karishma WOOTEN Work Phone: Start: 52-11-5582Tysun X-ray of right tibia and right fibulaMarcia Karishma WOOTEN Work Phone: Start: 52-69-2042Q-ray of right ankleMarcia Karishma WOOTEN Work Phone: Start: 49-38-9428Ibrnjrbei for osteoporosisMandycia Karishma Other Start: 69-45-2403BsqrmxokeytUwxdnml Piyush CARDENAS Work Phone: Start: 94-70-0123Zaigzrrqp for malignant neoplasm of colonIvelisse Karishma Other Start: 76-19-0685Mkhrhrd examination of patientIvelisse Schwarz Other Start: 99-59-8475Olwpckbqu mammographyIvelisse Schwarz Other Screening for malignant neoplasm of breastIvelisse Karishma Other Plan of Treatment DateCare ActivityDetailAuthorStart: 40-64-9499Wtcvdrxni for malignant neoplasm of colonNOMS HealthcareStart: 97-98-3072Y-ray of right ankleXR ankle RT min 3V* [facility]: 21-46-7794DN Ankle - right GE 3 Views [facility]: 33-20-3387Pkruq X-ray of right tibia and right fibulaXR tibia fibula RT 2V*[facility]: 15-90-7410Z-ray of right ankleXR ankle RT min 3V*[facility]: 54-40-4533WA Ankle - right GE 3 ViewsTwin City Hospitaltart: 80-71-4861CO Tibia and Fibula - right 2 [facility]: 42-05-7631Cqbdt [facility] Start: 03-02-7832Agtgwsbi identified in Urine by CultureUrine [facility]: 04-24-2024 End: 18-76-2655Qfyzgvy encounter teofvxfbi40/25/2024 2:30 PM EST Office Visit [facility] [address] [place] [id number] Chidi Pickett, DPM [address] [place] [address] [facility] PODIATRYComment on above:ArrivedStart: 80-19-7575Zqqydisdj vaccinationInfluenza Vaccine (#1)[facility]S HealthcareStart: 60-16-8207Ngnqudcix for malignant neoplasm of breastMammogramNOMS HealthcareStart: 00-39-5869Ipysvdezv for malignant neoplasm of colonNOMS Healthcare Immunizations Immunization DateImmunizationNotesCare XqvmcdqkEjrmjyxt48-47-3557ubqfyagzh, high dose seasonal, preservative-freeIvelisse Schwarz MD Work Phone: [facility]12-18-2023influenza virus vaccine, unspecified formulationChidi Pickett DPM Work Phone: [facility] HospitalHrzhynvfxf50-67-5021cdroajxgb virus vaccine, unspecified formulationIvelisse Schwarz MD Work Phone: [facility]11-22-2023influenza, high dose seasonal, preservative-freeIvelisse Schwarz Other [employer] Other 01-719087-61-5741edsffu vaccine, liveMarcia Karishma Other [facility]09-18-2020zoster vaccine, liveMarcia Karishma Other [facility]03-05-2020influenza virus vaccine, split virus (incl. purified surface antigen)Ivelisse Schwarz Other [facility] [employer] Other [id number] virus vaccine, unspecified formulationIvelisse Schwarz MD Work Phone: [facility] Payers DatePayer CategoryPayerPolicy [id number]-pay2022MedicaidAETNA MEDICARE ADVANTAGE [id number] [id number] [id number] [id number] [id number] [id number] [id number] [id number] [id number] 2.16.840.1.411142.3.579.2.531 Social History DateTypeDetailFacilitySex Assigned At [facility] [employer] Other Tobacco smoking status NHISTobacco smoking consumption unknownNOMS HealthcareStart: 62-17-3151Jas assigned at [facility] creekNot on fileNOMS HealthcareStart: 04-24-2024 End: 34-00-9728Fanrpnz smoking status NHISNever smoked tobaccoNOMS Healthcare Start: 67-67-4268Atwgkyy use and exposureSmokeless tobacco non-userNOMS HealthcareStart: 12-01-7636Kvyhusipy beverage intakeCurrent drinker of alcohol (finding)N[facility] HealthcareStart: 98-94-8795Uzgvtqo Commentonce a weekNOKY HealthcareStart: 08-29-2024 End: 28-68-9357FusTgpaic (finding)[facility]: 84-70-8949Kwn Assigned At [facility] Clinical Notes 01-29-2023 to 12-13-2024 Note Date & ArvjElqkXeqjmurf67-06-6235 Evaluation note* Diagnosis Onset Date Resolution Status Admit Date Fracture of right ankle, lateral malleol us acuteJuly 2024 2:12pm [facility] Work Phone: 1(666) 550-119907-16-2025 Evaluation note* Diagnosis Onset Date Resolution Status Admit Date Fracture of right ankle, lateral malleol us acuteJuly 2024 2:12pmFracture of right ankle, lateral malleolusacuteAugust 2024 8:11am [facility] Work Phone: 1(576) 664-268903-31-2025 Evaluation note* Diagnosis Onset Date Resolution Status Admit Date Dysuria acuteMarch 2024 2:49pm [facility] Work Phone: 1(441) 762-646011-25-2024 History of Present illness Narrative* Chidi Pickett, [...] more painful than the bunion. Tried OTC josie benito /SS: 8.5). HPI This is a new [...] past medical history. Medications Current Outpatient Medications: Ibgifci-Qikyambxhi-Rrfrqcv D (CALCIUM GUMMIES PO), Take by mouth, [...] consistent with plantar fasciitis. I recommend taking ozir-yvg-xllnzmp anti-inflammatory daily for 2 weeks to help [...] understanding. Chidi Pickett DPM documented in this encounterNOSt. Louis Children's HospitalQjpufblquv88-78-9156 Evaluation note* Encounter Date Diagnosis Assessment Notes Treatment Notes Treatment Clinical Notes Jan, Dysuria (ICD-10 - R30.0) [facility] [employer] Other Evaluation noteNo InformationNoLehigh [facility] [employer] Other Evaluation note* Diagnosis Plantar fasciitis- Primary Plantar fascial fibromatosis Equinus contracture of right ankle Equinus contracture of left ankle documented in this encounter NOMS HealthcareEvaluation note* Diagnosis Onset Date Resolution Status Admit Date Fracture of right ankle, lateral malleol us acuteJuly 2024 2:12pm [facility] Work Phone: History general Narrative - Reported* Type Description Date Medical History Problem Title : comp liance with medical treatment, Problem Description : compliance with medical treatment, Problem Comment : Done, Problem Status : Active,, Medical HistoryProblem Title : Depression Screening, Problem Description : Depression Screening, Problem Comment :Negative, Problem Status : Active,, Medical HistoryProblem Title : no known problems, Problem Description : no known problems, Problem Comment : F, Problem Status : Active,,Medical HistoryProblem Title : past medical history E&M, Problem Description : past medical history E&M, Problem Comment : Depression Zostavax 2006 Cold sores Prevnar 06/26/15 Shingles 07/2016, Problem Status: Active,,Medical HistoryProblem Title : past medical history reviewed, Problem Description : past medical history reviewed, Problem Comment : reviewed - no changes required, Problem Status : Active,, Medical HistoryProblem Title : PHQ2 Questionairre Score, Problem Description : PHQ2 Questionairre Score, Problem Comment : 0, Problem Status : Active,,Medical HistoryProblem Title : PHQ9 Question One score, Problem Description : PHQ9 Question One score, Problem Comment : 0, Problem Status : Active,,Medical HistoryProblem Title : PHQ9 Question Two score, Problem Description : PHQ9 Question Two score, Problem Comment : 0, Problem Status : Active,,Surgical HistoryProblem Title : past surgical history reviewed, Problem Description : past surgical history reviewed, Problem Comment : reviewed - no changes required, Problem Status : Active,Surgical HistoryProblem Title : surgical procedures, hx of, Problem Description : surgical procedures, hx of, Problem Comment : x 3 Appendectomy Colonoscopy 2005 - normal L cataract 08/2018, Problem Status : Active,Surgical HistoryProblem Title : surgical procedures, hx of, Problem Description : surgical procedures, hx of, Problem Comment : x 3 Appendectomy Colonoscopy 2005 - normal, Problem Status : Active,Hospitalization HistorySee Above [employer] Other History general Narrative - Reported* Type Description Date Medical History Hyperlipemia Medical HistoryTransient elevated blood pressureMedical HistoryAbnormal mammogram of left breastSurgical HistorybunionectomySurgical HistoryC section Hospitalization HistorySee Above [employer] Other Reason for referral (narrative)No reason for referral information availableTogus Va Medical Center Work Phone: Summary Purpose Family History No Family History Records Found Relationship Condition Age at Onset Recorded Date/T tiffanie father Malignant neoplasm Unknown DeceasedUnknownmotherMalignant neoplasmUnknown Advance Directives No Advanced Directives Records Found [...] section and content) DATE CREATED AUTHOR 03/12/2021 [facility] DATE CREATED AUTHOR AUTHOR'S ORGANIZ ATION 02/27/2022 [facility] DATE CREATED AUTHOR AUTHOR'S ORGANIZ ATION 04/26/2024 [facility] EPIC DATE CREATED AUTHOR AUTHOR'S ORGANIZ ATION 01/05/2025 [facility] REASON FOR VISIT (unrecogniz ed section and content) ReasonCommentsBunionsPt is here today complaining BL bunion area pain, Rt is worse than Lt. When it is bothersome she isn't doing any certain activity. Pain radiates into arch area and the arch is more painful than the bunion. Tried OTC motrin, no relief SS: 8.5 Care Teams (unrecognized sec tion and content) Team MemberRelationshipSpecialtyStart DateEnd Date Ivelisse Schwarz MD [address] [place] [address] PCP - GeneralFamily Ubezburk75/31/24Team MemberRelationshipSpecialtyStart Date End Date Ivelisse Schwarz MD [address] [place] [address] PCP - GeneralFamily Giopfgni02/31/24 Team Status: Inactive Member Role Status Dates [...] Start: December 13, 2024 End: December 13, 2024GEOFF BirdbrandoMer[facility] Hospital [facility], [facility] ProviderActiveStart: December 13, 2024 End: December 13, 2024 Team Status: Active Member Role Status Dates Ivelisse Schwarz MD Primary Care Provider Active Start: December 13, 2024 Eliud Gupta II ProviderActiveStart: December 13, 2024 Team Status: Inactive Member Role Status Dates Ivelisse Schwarz MD Primary Care Provider Active Start: December 13, 2024 End: December 13, 2024RobMichele Wolfe IIending ProviderActiveStart: December 13, 2024 End: December 13, 2024 Team Status: Inactive Member Role Status Dates Ivelisse Schwarz MD Primary Care Provider Active Start: January 03, 2025 End: January 03, 2025Michele Gupta IIending ProviderActiveStart: January 03, 2025 End: January 03, 2025 Team Status: Active Member Role Status Dates Ivelisse Schwarz MD Primary Care Provider Active Start: January 03, 2025 Eliud Gupta II ProviderActiveStart: January 03, 2025 Goals (unrecognized section and [...] BE BASED ON THE PRIMARY CLINICAL RECORDS. [facility] [employer] [facility]. provides no warranty or guarantee of the accuracy or completeness of information in this document.
--- NOTE | 2025-04-30 11:53 | XR_ITS ---
[facility] [place] [id number] Patient Name: NATHALIE RICHEY MRN: [id number] date: 1955 Sex: F Assigned Patient Location: [facility] Current Patient Location: [facility] Accession/Order Number: [id number] Exam Date: 04/30/2025 11:48 Report Date: 04/30/2025 16:12 At the request of: JOSE SCHWARZ MD Procedure: XR hip LT 2V w/ pelvis XR hip LT 2V w/ pelvis 04/30/2025 11:54 AM SIGNS AND SYMPTOMS: ^Pain In Left Hip PROTOCOL: Frontal radiograph the pelvis with frontal and frog-leg views of the left hip COMPARISON: None FINDINGS: The bony ring of the pelvis is intact. The joint spaces are preserved. There is no fracture or dislocation. Mild enthesophyte formation is noted along the greater trochanters. Vascular calcifications are present in the pelvis. XR/XR hip LT 2V w/ pelvis IMPRESSION: No fracture or dislocation. No significant degenerative change. Impression dictated by: Junaid Royal M.D. 04/30/2025 4:12 PM Dictation Location: [place] [address] Electronically authenticated by: [id number] Y Date: 04/30/2025 16:12
== END 2025-04-30 11:21 | disposition home or self-care (01) ==
LOC: RAD 11:22
PROVIDERS: PCP Family Medicine; Visit Provider Family Medicine
DX: M25.552 Pain in left hip (principal)
CPT/HCPCS: 73502